=== PATIENT | female | born 1965 | race Caucasian/White ===

== ENCOUNTER 2018-08-04 13:34 | Inpatient (IN) | payer MEDICARE, OTHER ==
[~2018-08-04] VITALS: Ht 165.1 cm; Wt 98.0 kg
[2018-08-04] MEDS ORDERED: ATOR40TA PO (13:50)
[2018-08-04] MEDS ORDERED: ASPI-983 PO (13:50)
[2018-08-04] MEDS ORDERED: CLON0.5T13 PO (13:50)
[2018-08-04] MEDS ORDERED: PANT40TA2 PO (13:50)
[2018-08-04] MEDS ORDERED: GBPN600T PO (13:50)
[2018-08-04] MEDS ORDERED: MELO-170 PO (13:50)
[2018-08-04] MEDS ORDERED: METR-145 PO (14:08)
[2018-08-04] MEDS ORDERED: ASCO10006 PO (14:08)
[2018-08-04] MEDS ORDERED: HYDR-3816 PO (14:08)
[2018-08-04] MEDS ORDERED: ARIP10TA10 PO (14:08)
[2018-08-04] MEDS ORDERED: CEFT2VIA12 IV (14:08)
[2018-08-04] MEDS ORDERED: FLUO20CA42 PO (14:08)
[2018-08-04] MEDS ORDERED: CALC600T12 PO (14:08)
[2018-08-04] MEDS ORDERED: VANC1VIA IV (14:08)
[2018-08-04] MEDS ORDERED: TRAM50TA2 PO (14:08)
--- NOTE | 2018-08-04 14:12 | NUR ---
UPDATED MED REC TO THE LIST OF MEDICATIONS ORDERED UPON DISCHARGE FROM [facility]. I WILL UPDATE THE MED REC TO THE LIST OF HOME MEDS PRIOR TO THAT DISCHARGE AT A LATER DATE. NOTE THE FOLLOWING CHANGES WERE MADE ON DISCHARGE FROM [place]: START TAKING: FLAGYL 500MG Q6H VANCOMYCIN-DEXTROSE 1GM/250ML-5% Q8H CEFTRIAXONE 2GM/50ML DAILY TRAMADOL 50MG 2 TABS Q6H PRN HYDROCODONE 7.5-325MG 2 TABS Q4H PRN Addendum: 08/05/18 at 1127 by MERCED DUFF refrigeration supervisor CHANGED MED REC BACK TO THE LIST OF MEDICATIONS THE PATIENT WAS TAKING PRIOR TO DISCHARGE FROM [place]. I REMOVED THE 5 NEW MEDICATIONS THAT WERE ORDERED UPON THAT DISCHARGE.
--- NOTE | 2018-08-04 16:15 | NUR ---
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 via [facility], unaccompanied. ESTRELLA WILLOUGHBY introduced to surroundings, call light, bed controls, phone, TV, temperature control, lights, meal times, smoking policy, visitor policy, side rail policy, bathrooms and showers. Patient Rights given to patient in the handbook.ESTRELLA WILLOUGHBY verbalizes understanding that [facility] is not responsible for the loss or damage to any personal effects or valuables that are kept in the patients possession during their hospitalization. The following Patient Care Plans were discussed with the Patient: Discharge Planning, Impaired Mobility, Risk for Injury, Total Hip. ESTRELLA WILLOUGHBY verbalizes understanding of Interdisciplinary Patient Education. Patient received Patient Rights Booklet, which includes Privacy Act Statement and Data Collection Information Summary.
[2018-08-04 16:23] VITALS: BP 124/82
--- NOTE | 2018-08-04 17:43 | PM&R H&P / Post Admit Assess ---
History of Present Illness HPI/Chief Complaint CC: Bilateral hip surgical incisions abscess with cellulitis and subsequent debility HPI: This is a 52-year-old white female clinic patient of Dr. Coelho in [facility] who is known to me from prior surgeries at [facility] by Dr. Méndez who presented to inpatient rehab unit at [facility] due to severe debility following bilateral hip incision abscesses and cellulitis in need of 6 weeks of IV antibiotics of Ancef 500 mg IV every 8 hours after a PICC line placement in addition to severe debility following severe postoperative anemia due to acute blood loss with subsequent hemoglobin of 5.4 requiring 4 units of blood last week. She was placed on broad-spectrum antibiotics and culture revealed E. coli pansensitive so she will continue the IV antibiotics until completed and will participate in all therapies to strengthen in order to return back home independently after wound vacs are discontinued. Dr. Cantu is gracious enough to monitor the wound vacs while she is hospitalized at [facility] along with the wound care team. I checked her home medications , current hospital meds from [facility] and review my previous consultation. She was living independently alone without difficulty or use of assistive devices and will return back home with modified independent activities of daily living along with ambulation since she lives alone. Source: patient Exam Limitations: no limitations Date Seen 08/04/18 Time Seen by a Provider: 16:00 Attending Physician Susan Morfin DO PCP Referring Physician Date of Admission Aug 04, 2018 at 15:51 Home Medications & Allergies Home Medications Reviewed patient Home Medication Reconciliation performed by pharmacy medication reconciliations calibration laboratory technician and/or nursing. Patients Allergies have been reviewed. Allergies Allergies Coded Allergies promethazine (Verified Allergy, Severe, Rash, 08/04/18) Penicillins (Verified Allergy, Intermediate, Hives, 08/04/18) Past Egmqwkk-Bynred-Lsmflj Hx Past Med/Social Hx: Reviewed Nursing Past Med/Soc Hx, Reviewed and Corrections made Patient Social History Marrital Status: single Employed/Student: unemployed (disabled) Alcohol Use: Denies Use Smoking Status: Former Smoker (quit 04/25) Recent Foreign Travel: No Contact w/other who traveled: No Recent Infectious Disease Expo: No Past Medical History Surgeries: Orthopedic (cervical spine, lumbar spine, left hip 02/23, right hip 05/29/18) Cardiac: High Cholesterol, Hypertension Neurological: Traumatic Brain Injury Musculoskeletal: Degenerate Disk Disease, Arthritis Psychosocial: Anxiety, Depression Review of Systems Constitutional: see HPI, weakness EENTM: no symptoms reported Respiratory: no symptoms reported Cardiovascular: no symptoms reported Gastrointestinal: no symptoms reported Genitourinary: no symptoms reported Musculoskeletal: joint pain Skin: no symptoms reported Psychiatric/Neurological: Depressed Physical Exam Exam Vital Signs Vital Signs Date Time Temp Pulse Resp B/P (MAP) Pulse Ox O2 Delivery O2 Flow Rate FiO2 08/04/18 18:00 Room Air 08/04/18 16:23 99.6 100 18 124/82 95 Capillary Refill : General Appearance: No Apparent Distress, WD/WN, Chronically ill HEENT: PERRL/EOMI, TMs Normal, Normal ENT Inspection, Pharynx Normal, Moist Mucous Membranes Neck: Full Range of Motion, Normal Inspection, Non Tender, Supple Respiratory: Chest Non Tender, Lungs Clear, Normal Breath Sounds, No Accessory Muscle Use, No Respiratory Distress Cardiovascular: Regular Rate, Rhythm, No Edema, No Gallop, No JVD, No Murmur Gastrointestinal: Normal Bowel Sounds, No Organomegaly, No Pulsatile Mass, Non Tender, Soft Back: Normal Inspection, No CVA Tenderness, No Vertebral Tenderness Extremity: Normal Capillary Refill, Normal Inspection, Normal Range of Motion, Non Tender, No Calf Tenderness, No Pedal Edema Neurologic/Psychiatric: Alert, Oriented x3, Normal Mood/Affect, Motor Weakness (weakness lower legs 4/[address] bilateral thighs) Skin: Normal Color, Warm/Dry Lymphatic: No Adenopathy Results Results/Procedures Labs Patient resulted labs reviewed. Assessment/Plan Assessment and Plan Assess & Plan/Chief Complaint Assessment: Bilateral hip incision abscesses with wound vacs in place and needs 6 weeks of abx with PICC line placement Debility Post op anemia hgb 5.4 s/p 4 units of blood last week OA HLP TBI Depression Anxiety Constipation x 7 days Plan: BM regimen aggressive type Check labs in am Monitor pain PT/OT Home meds GERD Tx (1) Incisional abscess (2) Status post hip replacement (3) Hyperlipidemia (4) Osteoarthritis (5) Depression (6) TBI (traumatic brain injury) (7) Anxiety (8) Postoperative anemia (9) Transfusion history (10) GERD (gastroesophageal reflux disease) (11) Former smoker (12) Constipation Post Admission Physician Asses Date seen by provider: Aug 04, 2018 Time seen by provider: 16:00 Admisison Dx: (1) Incisional abscess (2) Constipation (3) Anxiety (4) Depression (5) Hyperlipidemia (6) Osteoarthritis (7) GERD (gastroesophageal reflux disease) (8) TBI (traumatic brain injury) (9) Postoperative anemia (10) Transfusion history (11) Status post hip replacement (12) Former smoker The preadmission screen agrees with the post admission assessment that the patient is a good candidate for inpatient rehabilitation. The patient will have a comprehensive program of inpatient rehabilitation with a goal of maximizing level of functional independence prior to discharge home. The patient will have PT/OT ninety minutes per day, each discipline, five days a week for gait, strengthening, conditioning, balance, ADLs, any patient/ family/caregiver training as necessary. Speech therapy to do cognitive assessment and treat as indicated. Rehabilitation nursing to assist with bowel, bladder, skin, wound care, medication administration, pain management. Racket Stringer to assist with discharge planning, community reentry. SCD's for DVT prophylaxis. She appears to be well motivated to participate in three hours of therapy a day. She should be able to tolerate three hours of therapy a day from a medical standpoint. She should benefit from the three hours of therapy a day. She has a reasonable discharge plan, reasonable discharge rehabilitation goals and a supportive family. She has various comorbidities that need to be closely monitored with medications and treatments adjusted on a daily basis as needed. These include: see list Barriers to discharge for this patient who had been independent prior to this are for her to be modified independent to supervision for ADLs and mobility skills prior to discharge home with [family], so as to lessen the burden of the caregivers. Risks for this patient include: 1. Fall 2. Fracture 3. DVT 4. Pulmonary embolism 5. Wound infection 6. Skin breakdown 7. Contractures 8. Poorly controlled pain 9. Urinary retention 10. UTI 11. Respiratory infection 12. Aspiration Estimated Length of Stay: 21 days Prognosis: Rehab prognosis appears good for goal of discharge home modified independent to supervision for ADLs and mobility skills. SUSAN MORFIN DO Aug 04, 2018 17:43
[2018-08-04] MEDS: ceFAZolin INJECTION 500 MG in NS (IVPB) 50 ML IV SCH ×2 (18:22→22:31)
[2018-08-04] MEDS: HYDROcodone/APAP 7.5 MG/325 MG (LORTAB, LORCET PLUS) TABLET PO PRN (18:46)
[2018-08-04] MEDS ORDERED: ALPRAZolam 0.25 MG (XANAX) TAB PO PRN (20:45)
[2018-08-04] MEDS ORDERED: ACETAMINOPHEN 500 MG TAB (TYLENOL) PO PRN (20:45)
[2018-08-04] MEDS ORDERED: DOCUSATE SODIUM 100 MG (COLACE) CAP PO PRN (20:45)
[2018-08-04] MEDS ORDERED: ONDANSETRON 4 MG/2 ML (SDV) Z0FRAN IVP PRN (20:45)
[2018-08-04] MEDS ORDERED: diphenhydrAMINE 25 MG TAB (BENADRYL) PO PRN (20:45)
[2018-08-04] MEDS ORDERED: CALCIUM CARBONATE 500 MG (TUMS) TAB.CHEW PO PRN (20:45)
[2018-08-04] MEDS: CALCIUM CARBONATE 600 MG (CALCARB) TAB PO SCH (21:33)
[2018-08-04] MEDS: ATORVASTATIN 40 MG (LIPITOR) TABLET PO SCH (21:33)
[2018-08-04] MEDS: MELOXICAM 7.5 MG (MOBIC) TABLET PO SCH (21:33)
[2018-08-04] MEDS: GABAPENTIN 600 MG (NEURONTIN) TAB PO SCH (21:34)
[2018-08-04] MEDS: clonazePAM 0.5 MG (KlonoPIN) TAB PO SCH (21:34)
[2018-08-04] MEDS ORDERED: LACTULOSE SYRUP 10GM/15ML (ENULOSE) 30ML UDC ONE (21:39)
[2018-08-04] MEDS ORDERED: SENNA W/DOCUSATE (SENOKOT S) TABLET ONE (21:39)
[2018-08-04] MEDS ORDERED: POLYETHYLENE GLYCOL 17 GM (MIRALAX) PACK ONE (21:39)
[2018-08-04] MEDS ORDERED: BISACODYL 10 MG SUPP (DULCOLAX) ONE (21:39)
[2018-08-04] MEDS ORDERED: MELATONIN 3 MG TABLET ONE (21:39)
[2018-08-04] MEDS: SENNA W/DOCUSATE (SENOKOT S) TABLET PO SCH ×2 (21:45→21:47)
[2018-08-04] MEDS: LACTULOSE SYRUP 10GM/15ML (ENULOSE) 30ML UDC PO SCH ×2 (21:45→21:46)
[2018-08-04] MEDS: POLYETHYLENE GLYCOL 17 GM (MIRALAX) PACK PO SCH ×2 (21:45→21:46)
[2018-08-04] MEDS: BISACODYL 10 MG SUPP (DULCOLAX) PR SCH (21:45)
[2018-08-04] MEDS: MELATONIN 3 MG TABLET PO PRN (21:46)
[2018-08-05] MEDS: ASCORBIC ACID (VIT C) 500 MG TABLET PO SCH (06:07)
[2018-08-05] MEDS: ceFAZolin INJECTION 500 MG in NS (IVPB) 50 ML IV SCH (06:07)
[2018-08-05 06:11] LABS: BASOPHILS % (AUTO) 1 % (0-10); EOSINOPHILS # (AUTO) 0.2 10^3/uL (0.0-0.3); EOSINOPHILS % (AUTO) 4 % (0-10); HEMATOCRIT 32 % (35-52); HEMOGLOBIN 10.3 G/DL (11.5-16.0); LYMPHOCYTES # (AUTO) 2.2 X 10^3 (1.0-4.0); LYMPHOCYTES % (AUTO) 34 % (12-44); MEAN CORPUSCULAR HEMOGLOBIN 28 PG (25-34); MEAN CORPUSCULAR HGB CONC 32 G/DL (32-36); MEAN CORPUSCULAR VOLUME 87 FL (80-99); MEAN PLATELET VOLUME 9.5 FL (7.4-10.4); MONOCYTES # (AUTO) 0.4 X 10^3 (0.0-1.0); MONOCYTES % (AUTO) 6 % (0-12); NEUTROPHILS # (AUTO) 3.5 X 10^3 (1.8-7.8); NEUTROPHILS % (AUTO) 56 % (42-75); PLATELET COUNT 298 10^3/uL (130-400); WHITE BLOOD COUNT 6.3 10^3/uL (4.3-11.0)
[2018-08-05 06:28] LABS: ALANINE AMINOTRANSFERASE 32 U/L (0-55); ALBUMIN 2.9 GM/DL (3.2-4.5); ALKALINE PHOSPHATASE 115 U/L (40-136); BILIRUBIN,TOTAL 0.5 MG/DL (0.1-1.0); BUN/CREATININE RATIO 11; CALCIUM 8.7 MG/DL (8.5-10.1); CARBON DIOXIDE 21 MMOL/L (21-32); CHLORIDE 109 MMOL/L (98-107); CREATININE SERUM 0.73 MG/DL (0.60-1.30); GFR ESTIMATED > 60; GLUCOSE 103 MG/DL (70-105); POTASSIUM 3.6 MMOL/L (3.6-5.0); SODIUM 140 MMOL/L (135-145); TOTAL PROTEIN 5.3 GM/DL (6.4-8.2)
--- NOTE | 2018-08-05 08:58 | PM&R Progress Note ---
Subjective HPI/CC On Admission Date Seen by Provider: Aug 05, 2018 Time Seen by Provider: 08:30 CC: Bilateral hip surgical incisions abscess with cellulitis and subsequent debility HPI: This is a 52-year-old white female clinic patient of Dr. Coelho in [facility] who is known to me from prior surgeries at [facility] by Dr. Méndez who presented to inpatient rehab unit at [facility] due to severe debility following bilateral hip incision abscesses and cellulitis in need of 6 weeks of IV antibiotics of Ancef 500 mg IV every 8 hours after a PICC line placement in addition to severe debility following severe postoperative anemia due to acute blood loss with subsequent hemoglobin of 5.4 requiring 4 units of blood last week. She was placed on broad-spectrum antibiotics and culture revealed E. coli pansensitive so she will continue the IV antibiotics until completed and will participate in all therapies to strengthen in order to return back home independently after wound vacs are discontinued. Dr. Cantu is gracious enough to monitor the wound vacs while she is hospitalized at [facility] along with the wound care team. I checked her home medications , current hospital meds from [facility] and review my previous consultation. She was living independently alone without difficulty or use of assistive devices and will return back home with modified independent activities of daily living along with ambulation since she lives alone. Subjective/Events-last exam Pt doing well but still impulsive and has had a bed alarm and chair alarm placed. Wound vac is in place and Dr. Cantu has graciously agreed to oversee that with Aamir in wound care. Had a BM this morning after multiple medications were given lastnight. Picc line will be placed for IV Ancef of 500 mg IV Q8hrs for a total of 6 weeks. Peripheral IV infiltrated this morning so picc line will be placed and Ancef will be restarted. Conferred with RN. Reviewed therapy notes. Overall getting around pretty well but definitely needs intensive therapy. Review of Systems General: Fatigue Musculoskeletal: leg pain Objective Exam Vital Signs Vital Signs Date Time Temp Pulse Resp B/P (MAP) Pulse Ox O2 Delivery O2 Flow Rate FiO2 08/05/18 16:00 97.8 91 16 108/64 (79) 93 Room Air Capillary Refill : Less Than 3 Seconds General Appearance: No Apparent Distress, WD/WN, Chronically ill HEENT: PERRL/EOMI, TMs Normal, Normal ENT Inspection, Pharynx Normal, Moist Mucous Membranes Neck: Full Range of Motion, Normal Inspection, Non Tender, Supple Respiratory: Chest Non Tender, Lungs Clear, Normal Breath Sounds, No Accessory Muscle Use, No Respiratory Distress Cardiovascular: Regular Rate, Rhythm, No Edema, No Gallop, No JVD, No Murmur Gastrointestinal: Normal Bowel Sounds, No Organomegaly, No Pulsatile Mass, Non Tender, Soft Back: Normal Inspection, No CVA Tenderness, No Vertebral Tenderness Extremity: Normal Capillary Refill, Normal Inspection, Normal Range of Motion, Non Tender, No Calf Tenderness, No Pedal Edema Neurologic/Psychiatric: Alert, Oriented x3, Normal Mood/Affect, Motor Weakness (weakness lower legs 4/[address] bilateral thighs) Skin: Normal Color, Warm/Dry Lymphatic: No Adenopathy Results/Procedures Lab Laboratory Tests 08/05/18 05:54 Patient resulted labs reviewed. FIM Transfers Therapy Code Descriptions/Definitions Functional [place] Measure: 0=Not Assessed/NA 4=Minimal Assistance 1=Total Assistance 5=Supervision or Setup 2=Maximal Assistance 6=Modified [place] 3=Moderate Assistance 7=Complete [place] Therapy Quality Codes: 6 Independent with activity with or without an assistive device 5 Patient requires set up or clean up by helper. Patient completes activity by themselves 4 Supervision or touching assist (CGA). [place] provide cues , steadying assist 3 The helper provides less than half the effort to complete the activity 2 The helper provides more than half the effort to complete the activity 1 Dependent. The helper does all the effort to complete an activity 7 Patient refused to complete or attempt activity 9 The patient did not perform the activity before the current illness or injury 88 Not attempted due to Medical conditions or safety concerns Assessment/Plan Assessment and Plan Assess & Plan/Chief Complaint Assessment: Bilateral hip incision abscesses with wound vacs in place and needs 6 weeks of abx with PICC line placement Debility Post op anemia hgb 5.4 s/p 4 units of blood last week now 10 but low iron placing on iron infusions OA HLP TBI Depression Anxiety Constipation x 7 days now resolved Plan: BM regimen aggressive type to maintain to prevent recurrent constipation Iron infusions Monitor pain PT/OT Home meds GERD Tx (1) Incisional abscess (2) Constipation (3) Anxiety (4) Depression (5) Hyperlipidemia (6) Osteoarthritis (7) GERD (gastroesophageal reflux disease) (8) TBI (traumatic brain injury) (9) Postoperative anemia (10) Transfusion history (11) Status post hip replacement (12) Former smoker (13) Iron deficiency INGA MORFIN DO Aug 05, 2018 08:58
[2018-08-05] MEDS: LACTULOSE SYRUP 10GM/15ML (ENULOSE) 30ML UDC PO SCH ×2 (09:00→21:10)
[2018-08-05] MEDS ORDERED: PANTOPRAZOLE 40 MG (PROTONIX) TAB PO SCH (09:00)
[2018-08-05] MEDS: SENNA W/DOCUSATE (SENOKOT S) TABLET PO SCH ×2 (09:00→21:09)
[2018-08-05] MEDS: BISACODYL 10 MG SUPP (DULCOLAX) PR SCH ×2 (09:00→21:08)
[2018-08-05] MEDS: POLYETHYLENE GLYCOL 17 GM (MIRALAX) PACK PO SCH ×2 (09:00→21:10)
--- NOTE | 2018-08-05 09:00 | Physical Therapy Evaluation ---
PT Evaluation-General Medical Diagnosis Admission Date Aug 04, 2018 at 15:51 Medical Diagnosis: Bilateral hip incisions with absesses, debility Onset Date: Jul 29, 2018 Therapy Diagnosis Therapy Diagnosis: impaired mobility, strength, endurance, ROM Height/Weight Height (Feet): 5 Height (Inches): 5.00 Weight (Pounds): 225 Weight (Ounces): 0.5 Precautions Precautions/Isolations: Standard Precautions Weight Bear Status Right Lower Extremity: Right Weight Bearing/Tolerated Left Lower Extremity: Left Weight Bearing/Tolerated Referral Physician: Susan Healy DO Reason for Referral: Evaluation/Treatment Medical History Additional Medical History Medical History Additional Medical History Surgeries: Orthopedic (cervical spine, lumbar spine, left hip 02/23, right hip 05/29/18) Cardiac: High Cholesterol, Hypertension Neurological: Traumatic Brain Injury Musculoskeletal: Degenerate Disk Disease, Arthritis Psychosocial: Anxiety, Depression Reviewed History: Yes Social History Home: Single Level Current Living Status: Alone Entry Into Home: Level Entry Patient states her apartment is handicapped accessible. She lives alone but states she will have several people who will be able to assist her. Prior/Core FIM Prior Level of Function Therapy Code Descriptions/Definitions Functional [place] Measure: 0=Not Assessed/NA 4=Minimal Assistance 1=Total Assistance 5=Supervision or Setup 2=Maximal Assistance 6=Modified [place] 3=Moderate Assistance 7=Complete [place] Therapy Quality Codes: 6 Independent with activity with or without an assistive device 5 Patient requires set up or clean up by helper. Patient completes activity by themselves 4 Supervision or touching assist (CGA). [place] provide cues , steadying assist 3 The helper provides less than half the effort to complete the activity 2 The helper provides more than half the effort to complete the activity 1 Dependent. The helper does all the effort to complete an activity 7 Patient refused to complete or attempt activity 9 The patient did not perform the activity before the current illness or injury 88 Not attempted due to Medical conditions or safety concerns Functional Abilities and Goals: Independent: Patient completed the activities by him/herself, with or without an assistive device, with no assistance from a helper. Needed Some Help: Patient needed partial assistance from another person to complete activities. Dependent: A helper completed the activities for the patient. Unknown: Not Applicable: Bed Mobility: 6 Transfers (B,C,W/C) (FIM): 6 Gait: 2 Indoor Mobility (Ambulation): Independent Prior Devices Use: Motorized wheelchair, Walker Patient states she had a power wheelchair she used previously but also used a rolling walker for short distances. PT Evaluation-Current Subjective Patient in bed pre tx, agrees to PT, has 7/10 in both hips. Nurse notified of pain. Pt/Family Goals to be independent at home Objective Patient Orientation: Person, Place, Situation wound vacs ROM/Strength ROM Lower Extremities NT Strenght Lower Extremities 4/5 knee flex/ext on the right side, 3+/5 knee flex/ext on the left side Sensory Vision: Functional Hearing: Functional Sensation Right Lower Extremit: Impaired Sensation Left Lower Extremity: Impaired Transfers Therapy Code Descriptions/Definitions Functional [place] Measure: 0=Not Assessed/NA 4=Minimal Assistance 1=Total Assistance 5=Supervision or Setup 2=Maximal Assistance 6=Modified [place] 3=Moderate Assistance 7=Complete [place] Therapy Quality Codes: 6 Independent with activity with or without an assistive device 5 Patient requires set up or clean up by helper. Patient completes activity by themselves 4 Supervision or touching assist (CGA). [place] provide cues , steadying assist 3 The helper provides less than half the effort to complete the activity 2 The helper provides more than half the effort to complete the activity 1 Dependent. The helper does all the effort to complete an activity 7 Patient refused to complete or attempt activity 9 The patient did not perform the activity before the current illness or injury 88 Not attempted due to Medical conditions or safety concerns Transfers (B, C, W/C) (FIM): 5 Scootin Rollin Roll Left to Right (QC): 4 Supine to/from Sit: 5 Sit to/from Stand: 5 Sit to Lying (QC): 4 Lying to Sitting/Side of Bed(Q: 4 Sit to Stand (QC): 4 Chair/Fst-jd-Hwkcl Xfer(QC): 4 Car Transfer (QC): 4 Patient performs bed mobility with SBA, supine <-> sit with SBA, sit <-> stand with SBA, transfers with SBA, car transfer SBA. Patient has difficulty getting left leg into and out of car but can do it without assist. Good use of hands when sitting and standing. Gait Does the Patient Walk?: Yes Mode of Locomotion: Walk Anticipated Mode of Locomotion: Walk Gait (FIM): 5 Walk 10 feet (QC): 4 Walk 50 ft with 2 Turns(QC): 4 Walk 150 ft (QC): 4 Walking 10ft/uneven surface-QC: 4 Distance: 150', 200' Gait Level of Assist: 5 Gait Persons Needed: 1 Gait Assistive Device: FWW Comments/Gait Description Patient can ambulate 200' with a rolling walker with SBA (including 50' with at least 2 turns of 90 degrees and 10' over an uneven surface). Gait is antalgic, slow, but steady, no LOB. Wheelchair Training Does the Pt Use a Wheelchair?: No Stairs Stairs (FIM): 1 #of Steps: 1 Level of Assist: 4 1 Step (curb) (QC): 1 Assistive Device: Walker Patient can go up and down 1 step using a rolling walker with CGA. Cues for step sequence. Balance Sitting Static: Normal Sitting Dynamic: Normal Standing Static: Good Standing Dynamic: Good Treatment LAQ alternating for 5 min Assessment/Needs Patient has impaired mobility, strength, endurance, ROM post bilateral KEI. She has steady ambulation and transfers with SBA. Rehab Potential: Fair PT Short Term Goals Short Term Goals Time Frame: August 12, 2018 Transfers (B,C,W/C) (FIM): 6 Gait (FIM): 6 Gait Distance Comment: 150' Gait Level of Assist: 6 Gait Assistive Device: FWW PT Parking Station Attendant Goals Usp Goals PT Usp Goals Time Frame: August 26, 2018 Transfers (B,C,W/C) (FIM): 6 Sit to Lying (QC): 6 Lying-Sitting on Side/Bed(QC): 6 Sit to Stand (QC): 6 Rollin Roll Left to Right (QC): 6 Chair/Skg-ug-Ilhrz Xfer(QC): 6 Car Transfer (QC): 6 Gait (FIM): 6 Distance: 300' Walk 10 feet (QC): 6 Walk 10ft-Uneven Surface(QC): 6 Walk 50ft with 2 Turns (QC): 6 Walk 150 ft (QC): 6 Gait Level of Assist: 6 Gait Assistive Device: FWW Stairs (FIM): 2 # of Steps: 4 1 Step (curb) (QC): 4 4 Steps (QC): 4 Stairs Level Of Assist: 5 PT Plan Problem List Problem List: Activity Tolerance, Functional Strength, Safety, Balance, Gait, Transfer, Bed Mobility, ROM Treatment/Plan Treatment Plan: Continue Plan of Care Treatment Plan: Bed Mobility, Education, Functional Activity Lorena, Functional Strength, Group Therapy, Gait, Safety, Therapeutic Exercise, Transfers Treatment Duration: August 26, 2018 Frequency: At least 5 of 7 days/Wk (IRF) Estimated Hrs Per Day: 1.5 hours per day Patient and/or Family Agrees t: Yes Safety Risks/Education Patient Education: Gait Training, Transfer Techniques, Steps, Correct Positioning, Safety Issues Teaching Recipient: Patient Teaching Methods: Demonstration, Discussion Response to Teaching: Reinforcement Needed Discharge Recommendations Plan Patient will perform bed mobility and transfer training, balance and endurance training, functional strengthening, stair training, gait training, and education , to improve functional mobility and independence at home. Therapy D/C Recommendations: Home w/ Family Support Time/GCodes Time In: 0800 Time Out: 09 Total Billed Treatment Time: 60 Total Billed Treatment 1 visit EVM 30' FA 10' GT 20' MAGDALENE PERALTA PT Aug 05, 2018 09:00
[2018-08-05] MEDS: MELOXICAM 7.5 MG (MOBIC) TABLET PO SCH ×2 (10:02→21:06)
[2018-08-05] MEDS: clonazePAM 0.5 MG (KlonoPIN) TAB PO SCH ×3 (10:03→21:11)
[2018-08-05] MEDS: ASPIRIN E.C. 81 MG (ECOTRIN) TAB PO SCH (10:03)
[2018-08-05] MEDS: GABAPENTIN 600 MG (NEURONTIN) TAB PO SCH ×3 (10:03→21:07)
[2018-08-05] MEDS: FLUoxetine HCL 20 MG (PROzac) CAP PO SCH (10:04)
[2018-08-05] MEDS: HYDROcodone/APAP 7.5 MG/325 MG (LORTAB, LORCET PLUS) TABLET PO PRN ×3 (10:04→21:07)
--- NOTE | 2018-08-05 11:05 | NUR ---
Pastoral care visit.
--- NOTE | 2018-08-05 12:33 | NUR ---
CLIENT SERVICES ASSISTANT met with patient to complete initial assessment. Patient was alert and oriented and agreeable to assessment. Patient admitted to ARU from [facility] with debility following development of an abscess at right hip incision site (from previous hip replacement by Dr. Turcios) and need for long-term IV antibiotics due to ecoli and wound VAC. Replacement occurred in May and patient was independent prior to surgery. Since this time patient has required a walker or cane for ambulation and feels she has physically declined. She also possesses a power chair, of which she intends to sale. Patient resides alone in a handicap accessible apartment in [place], [place]. She reports good family, friend and neighbor support. Primary contact identified as ex-, Edi Linda of [place] at [phone] and son, Derrick of [place] at [phone]. PCP identified as Dr. Coelho of [place] and surgeon as Dr. Turcios. Insurance verified as Medicare, [place] Medicaid, and [employer] prescription coverage with preferred pharmacy as [facility]. Due to previous need for HHC services and home IV abx infusions, patient has utilized [facility] and an Infusion company; however, she cannot recall provider name of Infusion company. CLIENT SERVICES ASSISTANT reviewed typical a RU length of stay and weekly team conferences, patient expresses no concerns at this time. CLIENT SERVICES ASSISTANT will continue to follow for additional needs.
--- NOTE | 2018-08-05 13:02 | ST Cognitive Linguistic Eval ---
Speech Evaluation-General Medical Diagnosis Bilaterall hip incisions with absesses, debility Therapy Diagnosis Therapy Diagnosis: Cognitive-Communication Precautions Precautions/Isolations: Standard Precautions Referral Referring Physician: Dr. Healy Social History Current Living Status: Alone Speech PLF-Current Status Prior Level of Function The patient lived at home in a handicap apartment in [facility] where she was able to independently manage her daily needs. Subjective The patient was pleasant and cooperative with the cognitive assessment. Language Eval: Auditory Comprehends Simple Yes/No Ques: Functional Indent/Objects Multiple Correa: Functional Ident/Pics in Multiple [place]: Functional Follows 1-Step Commands: Functional Follows Complex Directions: Functional Follows General Conversations: Functional Language Eval: Verbal Language Completes Spontaneous Greeting: Functional Produces Auto, Serial Info: Functional Imitates Simple Words/Phrases: Functional Word Finding: Functional Requests Basic Needs: Functional States Basic Personal Info: Functional Expresses Complex Ideas: Functional Objective Cognitive Domain Attention: WNL Memory: WNL Problem Solving: Functional Executive Functions: WNL Visuospatial Skills: WNL Composite Severity Rating: WNL Clock Drawing Severity Rating: WNL Objective Formal/Standardized Tests Leobardo Cognitive Assessment (MOCA) Results Visuospatial/Executive: 5/5, Namin/3, Memory: Immediate 5/5, Delayed without cues 4/5, Attention: 6/6, Language: 3/3, Abstraction: 2/2, Orientation: 6/6 Oral Motor/Speech Production Within Functional Limits Impression The patient is a pleasant 52 year old female who was admitted to the ARU with bilateral hip incision abscesses and debility. The patient was given the MOCA with results indicating she is within normal range for all areas tested. Communication/Social Cognition Comprehension: 7 Expression: 7 Social Interaction: 7 Problem Solvin Memory: 7 Speech Patient Assess Expression of Ideas/Wants: Expression (4) Understanding Verbal Content: Understands (4) Brief Interview-Mental Status: Yes Repetition of Three Words: Three (3) Temporal Orientation: Year: Correct (3) Temporal Orientation: Month: Accurate within 5 days(2) Temporal Orientation: Day: Correct (1) Recall : Wear to say "Sock": Yes, no cue required (2) Recall : Color: Yes, no cue required (2) Recall : Bed: Yes, no cue required (2) Memory/Recall Ability: Current season, That he or she is in a hsp/hsp unit Speech-Plan Patient/Family Goals Patient/Family Goals: The patient plans to return home post rehab. Treatment Plan Speech Therapy Treatment Plan: Discontinue ST The patient does not warrant skilled ST at this time. Treatment Duration: Aug 05, 2018 Frequency: 1 time per week Estimated Hrs Per Day: .25 hour per day Rehab Potential: Fair Barriers to Learning: Patient has a complex medical history Safety Risks/Education Teaching Recipient: Patient Teaching Methods: Discussion Response to Teaching: Verbalize Understanding Education Topics Provided: Safety within her room Time Speech Therapy Time In: 09:00 Speech Therapy Time Out: 09:15 Total Billed Time: 15 Billed Treatment Time 1, SPSNDCOMP AVA Cruz Aug 05, 2018 13:02
--- NOTE | 2018-08-05 13:25 | Occupational Therapy Eval ---
OT Evaluation-General/PLF Medical Diagnosis Admission Date Aug 04, 2018 at 15:51 Medical Diagnosis: Bilateral hip incisions with absesses, debility Onset Date: Jul 29, 2018 Therapy Diagnosis Therapy Diagnosis: decreased self care skills Height/Weight Height (Feet): 5 Height (Inches): 5.00 Weight (Pounds): 225 Weight (Ounces): 0.5 Precautions Precautions/Isolations: Standard Precautions Safety Interventions: Bed Exit Alarm Referral Physician: Susan Healy DO Medical History Additional Medical History Surgeries: Orthopedic (cervical spine, lumbar spine, left hip 02/23, right hip 05/29/18) Cardiac: High Cholesterol, Hypertension Neurological: Traumatic Brain Injury Musculoskeletal: Degenerate Disk Disease, Arthritis Psychosocial: Anxiety, Depression Reviewed History: Yes Social History Home: Single Level Current Living Status: Alone Entry Into Home: Level Entry ADL-Prior Level of Function Therapy Code Descriptions/Definitions Functional [place] Measure: 0=Not Assessed/NA 4=Minimal Assistance 1=Total Assistance 5=Supervision or Setup 2=Maximal Assistance 6=Modified [place] 3=Moderate Assistance 7=Complete [place] Therapy Quality Codes: 6 Independent with activity with or without an assistive device 5 Patient requires set up or clean up by helper. Patient completes activity by themselves 4 Supervision or touching assist (CGA). Fisher provide cues , steadying assist 3 The helper provides less than half the effort to complete the activity 2 The helper provides more than half the effort to complete the activity 1 Dependent. The helper does all the effort to complete an activity 7 Patient refused to complete or attempt activity 9 The patient did not perform the activity before the current illness or injury 88 Not attempted due to Medical conditions or safety concerns Functional Abilities and Goals: Independent: Patient completed the activities by him/herself, with or without an assistive device, with no assistance from a helper. Needed Some Help: Patient needed partial assistance from another person to complete activities. Dependent: A helper completed the activities for the patient. Unknown: Not Applicable: DME/Equipment: Bath Chair, Grab Bars, Shower, Tall Toilet Drive Self: Yes OT Current Status Subjective Pt sitting in chair, agrees to therapy. Pt reports 8/10 pain in left hip, 6/10 pain in right hip. Mental Status/Objective Patient Orientation: Person, Place Attachments: Other-See Comments (wound vac on bilateral hips) Current Glasses/Contacts: Yes Hearing Aids: No Dentures/Partials: Yes Hand Dominance: Right Upper Extremity ROM grossly WFL Upper Extremity Coordination Intact Upper Extremity Strength Grossly WFL ADL-Treatment Eating (FIM): 6 (Pt reports feeding self and managing containers) Eating (QC): 6 Grooming (FIM): 5 (Pt combed hair after set up) Bathing (FIM): 4 (RN states sponge bath only at this time secondary to bilateral wound vacs. Sponge bath completed seated in chair. Pt bathed upper body after set up. Pt able to wash bilateral upper legs, juwan area, and buttocks. Assist for lower legs and feet. Assisted pt to wash hair. Pt able to dry hair with towel) Shower/Bathe Self (QC): 3 Upper Body Dressing (FIM): 5 (set up) Upper Body Dressing (QC): 5 Lower Body Dressing (FIM): 3 (Pt required min assist to start pants over feet. Able to complete pant hike with CGA. Assist required to don shoes. Pt states she is interested in hip kit, but does not have AE at home.) Lower Body Dressing (QC): 3 Toilet/Commode Transfer (FIM): 4 (CGA) Toilet Transfer (QC): 4 Education OT Patient Education: Rehab process Teaching Recipient: Patient Teaching Methods: Discussion Response to Teaching: Verbalize Understanding, Reinforcement Needed OT Short Term Goals Short Term Goals Transfers (B,C,W/C) (FIM): 6 1=Demonstrate adherence to instructed precautions during ADL tasks. 2=Patient will verbalize/demonstrate understanding of assistive devices/ modifications for ADL. 3=Patient will improve strength/tolerance for activity to enable patient to perform ADL's. OT Foreign Exchange Student Coordinator Goals Snf Goals Time Frame: August 26, 2018 Eating (FIM): 6 Eating (QC): 6 Groomin Oral Hygiene (QC): 6 Bathing(FIM): 6 Shower/Bathe Self (QC): 6 Upper Body Dressing(FIM): 6 Upper Body Dressing (QC): 6 Lower Body Dressing(FIM): 6 Lower Body Dressing (QC): 6 On/Off Footwear (QC): 6 Toileting(FIM): 6 Toileting Hygiene (QC): 6 Toilet/Commode Transfer(FIM): 6 Toilet/Commode Transfer (QC): 6 Shower Transfer(FIM): 6 Additional Goals: 1-Demonstrate ADL Tasks, 2-Verbalize Understanding, 3- ImproveStrength/Lorena 1=Demonstrate adherence to instructed precautions during ADL tasks. 2=Patient will verbalize/demonstrate understanding of assistive devices/ modifications for ADL. 3=Patient will improve strength/tolerance for activity to enable patient to perform ADL's. OT Education/Plan Problem List/Assessment Assessment: Decreased Activ Tolerance, Dependent Transfers, Impaired I ADL's, Impaired Self-Care Skills Pt to benefit from skilled OT intervention for ADL training, transfers, strengthening, and home safety education to increase level of independence and allow safe discharge home. Discharge Recommendations Plan/Recommendations: Continue POC Treatment Plan/Plan of Care Treatment,Training & Education: Yes Patient would benefit from OT for education, treatment and training to promote independence in ADL's, mobility, safety and/or upper extremity function for ADL' s. Plan of Care: ADL Retraining, Functional Mobility, Group Exercise/Act as Ind, UE Funct Exercise/Act Treatment Duration: August 26, 2018 Frequency: At least 5 of 7 days/Wk (IRF) Estimated Hrs Per Day: 1.5 hours per day Rehab Potential: Fair Time/GCodes Start Time: 09:30 Stop Time: 10:45 Total Time Billed (hr/min): 75 Billed Treatment Time 1 visit, EVM(15minutes), ADLx4(60minutes) PARISH STROUD OT Aug 05, 2018 13:25
--- NOTE | 2018-08-05 13:29 | Occ Therapy Progress Note ---
Therapy Progress Note Attempted to see pt at 1300 for OT rehab session. Pt having port placed. Unable to see pt. Will attempt at later time. GALDINO SIGALA Aug 05, 2018 13:29
--- NOTE | 2018-08-05 14:08 | Occupational Ther Daily Note ---
OT Current Status-Daily Note Subjective Pt alert, lying in bed. Just finished getting port placed. Agrees to therapy. No c/o pain at this time. Mental Status/Objective Patient Orientation: Person, Place, Time, Situation Therapy Code Descriptions/Definitions Functional [place] Measure: 0=Not Assessed/NA 4=Minimal Assistance 1=Total Assistance 5=Supervision or Setup 2=Maximal Assistance 6=Modified [place] 3=Moderate Assistance 7=Complete [place] Attachments: IV (port) ADL-Treatment Therapy Code Descriptions/Definitions Functional [place] Measure: 0=Not Assessed/NA 4=Minimal Assistance 1=Total Assistance 5=Supervision or Setup 2=Maximal Assistance 6=Modified [place] 3=Moderate Assistance 7=Complete [place] Therapy Quality Codes: 6 Independent with activity with or without an assistive device 5 Patient requires set up or clean up by helper. Patient completes activity by themselves 4 Supervision or touching assist (CGA). [place] provide cues , steadying assist 3 The helper provides less than half the effort to complete the activity 2 The helper provides more than half the effort to complete the activity 1 Dependent. The helper does all the effort to complete an activity 7 Patient refused to complete or attempt activity 9 The patient did not perform the activity before the current illness or injury 88 Not attempted due to Medical conditions or safety concerns Other Treatment Pt given medium resistance theraband for use in room throughout the day. Pt educated on how to use theraband and how many sets/reps to start with. Pt required skilled instruction for technique through demonstration and education. Pt able to complete 2 sets 10 reps of 5 UE theraband exercises. Tolerated well. After therapy, pt lying in bed with call light/phone in reach. All needs met in room. Education OT Patient Education: Exercise program Teaching Recipient: Patient Teaching Methods: Demonstration Response to Teaching: Verbalize Understanding, Return Demonstration, Reinforcement Needed OT Short Term Goals Short Term Goals Transfers (B,C,W/C) (FIM): 6 1=Demonstrate adherence to instructed precautions during ADL tasks. 2=Patient will verbalize/demonstrate understanding of assistive devices/ modifications for ADL. 3=Patient will improve strength/tolerance for activity to enable patient to perform ADL's. OT Towing Pilot Goals Towing Pilot Goals Time Frame: August 26, 2018 Eating (FIM): 6 Eating (QC): 6 Groomin Oral Hygiene (QC): 6 Bathing(FIM): 6 Shower/Bathe Self (QC): 6 Upper Body Dressing(FIM): 6 Upper Body Dressing (QC): 6 Lower Body Dressing(FIM): 6 Lower Body Dressing (QC): 6 On/Off Footwear (QC): 6 Toileting(FIM): 6 Toileting Hygiene (QC): 6 Toilet/Commode Transfer(FIM): 6 Toilet/Commode Transfer (QC): 6 Shower Transfer(FIM): 6 Additional Goals: 1-Demonstrate ADL Tasks, 2-Verbalize Understanding, 3- ImproveStrength/Lorena 1=Demonstrate adherence to instructed precautions during ADL tasks. 2=Patient will verbalize/demonstrate understanding of assistive devices/ modifications for ADL. 3=Patient will improve strength/tolerance for activity to enable patient to perform ADL's. OT Education/Plan Problem List/Assessment Assessment: Decreased Safety Aware, Decreased UE Strength, Impaired Self-Care Skills Pt to benefit from skilled OT intervention for ADL training, transfers, strengthening, and home safety education to increase level of independence and allow safe discharge home. Discharge Recommendations Plan/Recommendations: Continue POC Treatment Plan/Plan of Care Patient would benefit from OT for education, treatment and training to promote independence in ADL's, mobility, safety and/or upper extremity function for ADL' s. Plan of Care: ADL Retraining, Functional Mobility, Group Exercise/Act as Ind, UE Funct Exercise/Act Treatment Duration: August 26, 2018 Frequency: At least 5 of 7 days/Wk (IRF) Estimated Hrs Per Day: 1.5 hours per day Rehab Potential: Fair Time/GCodes Start Time: 13:50 Stop Time: 14:05 Total Time Billed (hr/min): 15 Billed Treatment Time 1 visit-EX 1 (15 min) GALDINO SIGALA Aug 05, 2018 14:08
--- NOTE | 2018-08-05 14:25 | Diagnostic Imaging Report ---
INDICATION: Evaluate PICC line placement. FINDINGS: The heart size is normal. Lungs are clear. There is no pleural effusion or pneumothorax. Mediastinum is unremarkable. The left upper extremity PICC line has its tip in the superior vena cava. IMPRESSION: No acute cardiopulmonary abnormality. The PICC line is in satisfactory position. Dictated by: Dictated on workstation # [id number]
--- NOTE | 2018-08-05 14:53 | Physical Therapy Daily Note ---
PT Daily Note-Current Subjective Patient in bed pre tx, agrees to PT, has 5/10 pain in hips. Appearance Patient sitting EOB post tx with nurse call, phone, tray, all needs met. Mental Status Patient Orientation: Person, Place, Situation wound vac Transfers Therapy Code Descriptions/Definitions Functional [place] Measure: 0=Not Assessed/NA 4=Minimal Assistance 1=Total Assistance 5=Supervision or Setup 2=Maximal Assistance 6=Modified [place] 3=Moderate Assistance 7=Complete [place] Therapy Quality Codes: 6 Independent with activity with or without an assistive device 5 Patient requires set up or clean up by helper. Patient completes activity by themselves 4 Supervision or touching assist (CGA). [place] provide cues , steadying assist 3 The helper provides less than half the effort to complete the activity 2 The helper provides more than half the effort to complete the activity 1 Dependent. The helper does all the effort to complete an activity 7 Patient refused to complete or attempt activity 9 The patient did not perform the activity before the current illness or injury 88 Not attempted due to Medical conditions or safety concerns Transfers (B, C, W/C) (FIM): 5 Scootin Rollin Supine to/from Sit: 6 Sit to/from Stand: 5 Bed to/from Chair: 5 Weight Bearing Right Lower Extremity: Right Weight Bearing/Tolerated Left Lower Extremity: Left Weight Bearing/Tolerated Gait Training Gait (FIM): 5 Distance: 150'x2 Gait Level of Assist: 5 Gait Persons Needed: 1 Gait Assistive Device: FWW Slow, antalgic but steady and no LOB. Exercises NuStep Minutes: 10 NuStep Workload: 4 (seat set so patient will not violate hip flexion precautions) Treatments bed mobility and transfers, ambulation, LE exercises Assessment Current Status: Fair Progress improved bed mobility PT Short Term Goals Short Term Goals Time Frame: August 12, 2018 Transfers (B,C,W/C) (FIM): 6 Gait (FIM): 6 Gait Distance Comment: 150' Gait Level of Assist: 6 Gait Assistive Device: FWW PT Residential Goals Residential Goals PT Chain Repairer Goals Time Frame: August 26, 2018 Transfers (B,C,W/C) (FIM): 6 Sit to Lying (QC): 6 Lying-Sitting on Side/Bed(QC): 6 Sit to Stand (QC): 6 Rollin Roll Left to Right (QC): 6 Chair/Dnr-sh-Stduf Xfer(QC): 6 Car Transfer (QC): 6 Gait (FIM): 6 Distance: 300' Walk 10 feet (QC): 6 Walk 10ft-Uneven Surface(QC): 6 Walk 50ft with 2 Turns (QC): 6 Walk 150 ft (QC): 6 Gait Level of Assist: 6 Gait Assistive Device: FWW Stairs (FIM): 2 # of Steps: 4 1 Step (curb) (QC): 4 4 Steps (QC): 4 Stairs Level Of Assist: 5 PT Plan Problem List Problem List: Activity Tolerance, Functional Strength, Safety, Balance, Gait, Transfer, Bed Mobility, ROM Treatment/Plan Treatment Plan: Continue Plan of Care Treatment Plan: Bed Mobility, Education, Functional Activity Lorena, Functional Strength, Group Therapy, Gait, Safety, Therapeutic Exercise, Transfers Treatment Duration: August 26, 2018 Frequency: At least 5 of 7 days/Wk (IRF) Estimated Hrs Per Day: 1.5 hours per day Patient and/or Family Agrees t: Yes Safety Risks/Education Patient Education: Gait Training, Transfer Techniques, Correct Positioning, Safety Issues Teaching Recipient: Patient Teaching Methods: Demonstration, Discussion Response to Teaching: Reinforcement Needed Time/GCodes Time In: 1425 Time Out: 1455 Total Billed Treatment Time: 30 Total Billed Treatment 1 visit EX 10' GT 20' MAGDALENE PERALTA PT Aug 05, 2018 14:52
[2018-08-05] MEDS: ceFAZolin 1,000 MG/SWFI 10 ML IV PUSH IV SCH ×4 (15:00→22:12)
[2018-08-05 16:00] VITALS: BP 108/64
--- NOTE | 2018-08-05 19:15 | NUR ---
bedside report received from MEE MCFARLAND, assume care of pt
--- NOTE | 2018-08-05 21:00 | NUR ---
assessments & interventions completed, see assessments & interventions, up to bathroom with 1 person assist & walker, wound vacs in place to maye hip wounds.
[2018-08-05] MEDS: CALCIUM CARBONATE 600 MG (CALCARB) TAB PO SCH (21:05)
[2018-08-05] MEDS: ATORVASTATIN 40 MG (LIPITOR) TABLET PO SCH (21:05)
--- NOTE | 2018-08-05 21:07 | NUR ---
c/o maye hip pain level 6/10 on numeric scale, lortab 7.5 2 tabs po given, pt refused Senokot, Dulcolax supp, miralax & Enulose.
--- NOTE | 2018-08-05 21:40 | NUR ---
pain level 2/10 on numeric scale
--- NOTE | 2018-08-05 23:01 | Consultation (Surgery) ---
History of Present Illness History of Present Illness Patient Consulted On(colleen/time) 08/05/18 22:55 Time Seen by Provider: 12:06 History of Present Illness Surgery asked to consult regarding abscesses, cellulitis and wound VAC. Pt has long protracted medical history. HPI per IM: This is a 52-year-old white female clinic patient of Dr. Coelho in [facility] who is known to me from prior surgeries at [facility] by Dr. Turcios who presented to inpatient rehab unit at [facility] due to severe debility following bilateral hip incision abscesses and cellulitis in need of 6 weeks of IV antibiotics of Ancef 500 mg IV every 8 hours after a PICC line placement in addition to severe debility following severe postoperative anemia due to acute blood loss with subsequent hemoglobin of 5.4 requiring 4 units of blood last week. She was placed on broad-spectrum antibiotics and culture revealed E. coli pansensitive so she will continue the IV antibiotics until completed and will participate in all therapies to strengthen in order to return back home independently after wound vacs are discontinued. Dr. May is gracious enough to monitor the wound vacs while she is hospitalized at [facility] along with the wound care team. I checked her home medications, current hospital meds from [facility] and review my previous consultation. She was living independently alone without difficulty or use of assistive devices and will return back home with modified independent activities of daily living along with ambulation since she lives alone. When I spoke to pt this afternoon, she denied pain specifically from incisions, just the normal pain she has been in. She is worried about removing the wound VAC; because "everytime they take them off, they fall apart." Allergies and Home Medications Allergies Coded Allergies: promethazine (Verified Allergy, Severe, Rash, 08/04/18) Penicillins (Verified Allergy, Intermediate, Hives, 08/04/18) Home Medications Aripiprazole 10 Mg Tablet, 10 MG PO DAILY, (Reported) Ascorbic Acid 1,000 Mg Tablet, 1,000 MG PO HS, (Reported) Aspirin 81 Mg Tablet.dr, 81 MG PO DAILY, (Reported) Atorvastatin Calcium 40 Mg Tablet, 40 MG PO HS, (Reported) Calcium Carbonate 600 Mg Tablet, 600 MG PO HS, (Reported) Clonazepam 0.5 Mg Tablet, 0.5 MG PO TID, (Reported) Fluoxetine HCl 20 Mg Capsule, 20 MG PO DAILY, (Reported) Gabapentin 600 Mg Tablet, 600 MG PO TID, (Reported) Meloxicam 7.5 Mg Tablet, 7.5 MG PO BID, (Reported) Pantoprazole Sodium 40 Mg Tablet.dr, 40 MG PO DAILY, (Reported) Patient Home Medication List Home Medication List Reviewed: Yes Past Uhzglzl-Wkyaxg-Bqurbm Hx Patient Social History Alcohol Use: Denies Use Recreational Drug Use: Yes ([facility]) Smoking Status: Former Smoker (quit 04/25) Recent Foreign Travel: No Contact w/Someone Who Travel: No Recent Infectious Disease Expo: No Recent Hopitalizations: Yes Physical Abuse Screen: No Sexual Abuse: No Seasonal Allergies Seasonal Allergies: No Surgeries History of Surgeries: Yes Surgeries: Orthopedic (cervical spine, lumbar spine, left hip 02/23, right hip 05/29/18) Respiratory History of Respiratory Disorde: No Cardiovascular Cardiac Disorders: High Cholesterol, Hypertension Neurological History of Neurological Disord: Yes Neurological Disorders: Traumatic Brain Injury Genitourinary History of Genitourinary Disor: No Gastrointestinal History of Gastrointestinal Di: No Musculoskeletal History of Musculoskeletal Dis: No Musculoskeletal Disorders: Degenerate Disk Disease, Arthritis Endocrine History of Endocrine Disorders: No HEENT History of HEENT Disorders: No Cancer History of Cancer: No Psychosocial History of Psychiatric Problem: No Behavioral Health Disorders: Anxiety, Depression Integumentary History of Skin or Integumenta: No Blood Transfusions History of Blood Disorders: No Adverse Reaction to a Blood Tr: No Family Medical History Significant Family History: Other Conditions/Hx (unknown, because she was adopted) Family Medial History: Not obtainable due to adoption 19 FATHER 19 MOTHER Review of Systems-General Constitutional: No chills, No diaphoresis EENTM: No blurred vision, No mouth pain, No epistaxis Respiratory: No cough, No dyspnea on exertion Cardiovascular: No chest pain, No palpitations Gastrointestinal: No abdominal pain; constipation; No hematemesis, No jaundice Genitourinary: No dysuria, No frequency, No hematuria Musculoskeletal: joint pain, joint swelling, muscle pain, muscle stiffness, muscle cramps, muscle weakness Skin: No change in color, No change in hair/nails Psychiatric/Neurological: Anxiety, Paresthesia; Denies Seizure, Denies Tingling Physical Exam-General Problems Physical Exam Vital Signs Vital Signs - First Documented 08/04/18 16:23 Temp 99.6 Pulse 100 Resp 18 B/P (MAP) 124/82 Pulse Ox 95 O2 Delivery Room Air Capillary Refill : Less Than 3 Seconds General Appearance: WD/WN, no apparent distress Eyes: Bilateral Eye PERRL, Bilateral Eye EOMI HEENT: pharynx normal; No scleral icterus (R), No scleral icterus (L), No pale conjunctivae (R), No pale conjunctivae (L) Neck: supple, normal inspection Respiratory: lungs clear, normal breath sounds, no respiratory distress, no accessory muscle use Cardiovascular: regular rate, rhythm, no murmur Gastrointestinal: normal bowel sounds, non tender, soft, no organomegaly Back: no CVA tenderness, no vertebral tenderness Extremities: other (decreased ROM in both legs, wound VAC in place on bilateral hips with scant blood under occlusive dressing) Neurologic/Psychiatric: baggage porter II-XII nml as tested, alert, normal mood/affect, oriented x 3, abnormal gait, motor weakness Data Review Labs Laboratory Tests 08/05/18 05:54: White Blood Count 6.3, Red Blood Count 3.68L, Hemoglobin 10.3L, Hematocrit 32L, Mean Corpuscular Volume 87, Mean Corpuscular Hemoglobin 28, Mean Corpuscular Hemoglobin Concent 32, Red Cell Distribution Width 18.0H, Platelet Count 298, Mean Platelet Volume 9.5, Neutrophils (%) (Auto) 56, Lymphocytes (%) (Auto) 34, Monocytes (%) (Auto) 6, Eosinophils (%) (Auto) 4, Basophils (%) (Auto) 1, Neutrophils # (Auto) 3.5, Lymphocytes # (Auto) 2.2, Monocytes # (Auto) 0.4, Eosinophils # (Auto) 0.2, Basophils # (Auto) 0.0, Sodium Level 140, Potassium Level 3.6, Chloride Level 109H, Carbon Dioxide Level 21, Anion Gap 10, Blood Urea Nitrogen 8, Creatinine 0.73, Estimat Glomerular Filtration Rate > 60, BUN/ Creatinine Ratio 11, Glucose Level 103, Calcium Level 8.7, Corrected Calcium 9.6 , Iron Level 29L, Total Bilirubin 0.5, Aspartate Amino Transf (AST/SGOT) 61H, Alanine Aminotransferase (ALT/SGPT) 32, Alkaline Phosphatase 115, Total Protein 5.3L, Albumin 2.9L Assessment/Plan Assessment/Plan Assessment/Plan Bilateral Wound VAC over Hip incision Plan to leave wound VAC on until Prevena battery dies and then will take them both down and asses whether they need to be replaced or left off. Thank you for this consult. Clinical Quality Measures DVT/VTE Risk/Contraindication: Risk Factor Score Per Nursin RFS Level Per Nursing on Admit: 4+=Very High Contraindications-Mechi: Other *list below* Other: High Bleed risk. On Mobic and ASA. SCDS only. ELSI MAY DO Aug 05, 2018 23:01
[2018-08-06] MEDS: HYDROcodone/APAP 7.5 MG/325 MG (LORTAB, LORCET PLUS) TABLET PO PRN ×3 (05:24→18:52)
--- NOTE | 2018-08-06 05:24 | NUR ---
c/o maye hip pain level 6/10 on numeric scale, lortab 7.5 2 tabs po given
--- NOTE | 2018-08-06 05:40 | NUR ---
pain level 2/10 on numeric scale
[2018-08-06 06:00] VITALS: BP 118/74
[2018-08-06] MEDS: PANTOPRAZOLE 40 MG (PROTONIX) TAB PO SCH (06:13)
[2018-08-06] MEDS: ceFAZolin 1,000 MG/SWFI 10 ML IV PUSH IV SCH ×6 (06:13→22:05)
[2018-08-06] MEDS: ASCORBIC ACID (VIT C) 500 MG TABLET PO SCH (06:13)
--- NOTE | 2018-08-06 07:09 | NUR ---
bedside report given to MEE MCFARLAND
--- NOTE | 2018-08-06 08:45 | PM&R Progress Note ---
Subjective HPI/CC On Admission Date Seen by Provider: August 06, 2018 Time Seen by Provider: 08:30 CC: Bilateral hip surgical incisions abscess with cellulitis and subsequent debility HPI: This is a 52-year-old white female clinic patient of Dr. Coelho in [facility] who is known to me from prior surgeries at [facility] by Dr. Méndez who presented to inpatient rehab unit at [facility] due to severe debility following bilateral hip incision abscesses and cellulitis in need of 6 weeks of IV antibiotics of Ancef 500 mg IV every 8 hours after a PICC line placement in addition to severe debility following severe postoperative anemia due to acute blood loss with subsequent hemoglobin of 5.4 requiring 4 units of blood last week. She was placed on broad-spectrum antibiotics and culture revealed E. coli pansensitive so she will continue the IV antibiotics until completed and will participate in all therapies to strengthen in order to return back home independently after wound vacs are discontinued. Dr. Cantu is gracious enough to monitor the wound vacs while she is hospitalized at [facility] along with the wound care team. I checked her home medications , current hospital meds from [facility] and review my previous consultation. She was living independently alone without difficulty or use of assistive devices and will return back home with modified independent activities of daily living along with ambulation since she lives alone. Subjective/Events-last exam PICC was placed without difficulty Ancef Q8hrs is tolerated Had BM yesterday several times Impulsive so fall risk Dr Cantu appreciated for wound care management Draining right right hip minimal but a lot from left wound Conferred with RN Reviewed therapy notes Note from 08/05/18: Pt doing well but still impulsive and has had a bed alarm and chair alarm placed. Wound vac is in place and Dr. Cantu has graciously agreed to oversee that with Aamir in wound care. Had a BM this morning after multiple medications were given lastnight. Picc line will be placed for IV Ancef of 500 mg IV Q8hrs for a total of 6 weeks. Peripheral IV infiltrated this morning so picc line will be placed and Ancef will be restarted. Conferred with RN. Reviewed therapy notes. Overall getting around pretty well but definitely needs intensive therapy. Review of Systems General: Fatigue Musculoskeletal: leg pain Objective Exam Vital Signs Vital Signs Date Time Temp Pulse Resp B/P (MAP) Pulse Ox O2 Delivery O2 Flow Rate FiO2 08/06/18 09:00 95 Room Air 08/06/18 06:00 97.4 96 20 118/74 (89) Capillary Refill : Less Than 3 Seconds General Appearance: No Apparent Distress, WD/WN, Chronically ill HEENT: PERRL/EOMI, TMs Normal, Normal ENT Inspection, Pharynx Normal, Moist Mucous Membranes Neck: Full Range of Motion, Normal Inspection, Non Tender, Supple Respiratory: Chest Non Tender, Lungs Clear, Normal Breath Sounds, No Accessory Muscle Use, No Respiratory Distress Cardiovascular: Regular Rate, Rhythm, No Edema, No Gallop, No JVD, No Murmur Gastrointestinal: Normal Bowel Sounds, No Organomegaly, No Pulsatile Mass, Non Tender, Soft Back: Normal Inspection, No CVA Tenderness, No Vertebral Tenderness Extremity: Normal Capillary Refill, Normal Inspection, Normal Range of Motion, Non Tender, No Calf Tenderness, No Pedal Edema Neurologic/Psychiatric: Alert, Oriented x3, Normal Mood/Affect, Motor Weakness (weakness lower legs 4/[address] bilateral thighs) Skin: Normal Color, Warm/Dry Lymphatic: No Adenopathy Results/Procedures Lab Patient resulted labs reviewed. FIM Transfers Therapy Code Descriptions/Definitions Functional Shannon Measure: 0=Not Assessed/NA 4=Minimal Assistance 1=Total Assistance 5=Supervision or Setup 2=Maximal Assistance 6=Modified Shannon 3=Moderate Assistance 7=Complete Shannon Therapy Quality Codes: 6 Independent with activity with or without an assistive device 5 Patient requires set up or clean up by helper. Patient completes activity by themselves 4 Supervision or touching assist (CGA). Dequincy provide cues , steadying assist 3 The helper provides less than half the effort to complete the activity 2 The helper provides more than half the effort to complete the activity 1 Dependent. The helper does all the effort to complete an activity 7 Patient refused to complete or attempt activity 9 The patient did not perform the activity before the current illness or injury 88 Not attempted due to Medical conditions or safety concerns Mental Status/Objective Comprehension: 7 Expression: 7 Social Interaction: 7 Problem Solvin Memory: 7 ADL-Treatment Feedin (Pt reports feeding self and managing containers) Eating (QC): 6 Groomin (Pt combed hair after set up) Bathin (RN states sponge bath only at this time secondary to bilateral wound vacs. Sponge bath completed seated in chair. Pt bathed upper body after set up. Pt able to wash bilateral upper legs, juwan area, and buttocks. Assist for lower legs and feet. Assisted pt to wash hair. Pt able to dry hair with towel) Shower/Bathe Self (QC): 3 Upper Extremity Dressin (set up) Upper Body Dressing (QC): 5 Lower Extremity Dressin (Pt required min assist to start pants over feet. Able to complete pant hike with CGA. Assist required to don shoes. Pt states she is interested in hip kit, but does not have AE at home.) Lower Body Dressing (QC): 3 Toilet/Commode Transfer: 4 (CGA) Toilet Transfer (QC): 4 Assessment/Plan Assessment and Plan Assess & Plan/Chief Complaint Assessment: Bilateral hip incision abscesses with wound vacs in place and needs 6 weeks of abx with PICC line placement Debility Post op anemia hgb 5.4 s/p 4 units of blood last week now 10 but low iron placing on iron infusions OA HLP TBI Depression Anxiety Constipation x 7 days now resolved Plan: BM regimen aggressive type to maintain to prevent recurrent constipation Iron infusions Monitor pain PT/OT Home meds GERD Tx (1) Incisional abscess (2) Constipation (3) Anxiety (4) Depression (5) Hyperlipidemia (6) Osteoarthritis (7) GERD (gastroesophageal reflux disease) (8) TBI (traumatic brain injury) (9) Postoperative anemia (10) Transfusion history (11) Status post hip replacement (12) Former smoker (13) Iron deficiency INGA MORFIN DO August 06, 2018 08:45
--- NOTE | 2018-08-06 08:45 | Individualized Plan of Care ---
Individualized Plan of Care Rehab Nursing IPOC Order Admission Date Aug 04, 2018 at 15:51 Current Orders Orders Admission Order(Inpt,Obs,Sdc) (08/04/18 13:47) Vital Signs: Per Unit Policy ( 08,16,00 (08/04/18 13:47) Mortgage Loan Computation Clerk-Inpt Rehab Con (08/04/18 13:47) Rehab Nursing Orders-Ipoc (08/04/18 13:47) Physical Therapy Rehab Orders (08/04/18 13:47) Occupational Therapy Rehab Ord (08/04/18 13:47) Speech Therapy Rehab Orders (08/04/18 13:47) General/Regular (08/04/18 Dinner) Intake & Output 06,14,22 (08/04/18 13:47) Precautions (Aru) (08/04/18 13:47) Weekly Weight (Lbs) WEEK (08/04/18 13:47) Rehab-Intensity Of Therapy (08/04/18 13:47) Code/Resuscitation (08/04/18 13:47) Initiate Admission Nursing Pro .admission (08/04/18 13:47) Isolation Central Supply Req (08/04/18 13:47) Aspirin Enteric Coated Tablet (Ecotrin T (08/05/18 09:00) Atorvastatin Tablet (Lipitor) (08/04/18 21:00) Calcium Carbonate Tablet (Calcarb 600 Ta (08/04/18 21:00) Clonazepam Tablet (Klonopin Tablet) (08/04/18 21:00) Gabapentin Capsule/Tablet (Neurontin Cap (08/04/18 21:00) Pantoprazole Tablet (Protonix Tablet) (08/05/18 09:00) Tramadol Tablet (Ultram Tablet) (08/04/18 17:45) Aripiprazole Tablet (Abilify Tablet) (08/05/18 09:00) Fluoxetine Capsule (Prozac Capsule) (08/05/18 09:00) Hydrocodone/Apap 7.5/325 Tab (Lortab 7. (08/04/18 18:00) Meloxicam Tablet (Mobic Tablet) (08/04/18 21:00) Venous Access Request Order (08/04/18 17:39) Cefazolin Injection (Ancef Injection) (08/04/18 17:45) Cbc With Automated Diff (08/05/18 06:00) Comprehensive Metabolic Panel (08/05/18 06:00) Iron Test (Fe) (08/05/18 06:00) Sequential Compression Device 08,20 (08/04/18 17:41) Ambulate 08,12,20 (08/04/18 17:47) Sequential Compression Device 08,20 (08/04/18 17:47) Dvt/Vte Risk - Notifiy Physici 08 (08/04/18 17:47) Ascorbic Acid Tablet (Vitamin C Tablet) (08/05/18 07:00) Senna S Tablet (Senokot S Tablet) (08/04/18 20:45) Polyethylene Glycol Powder Pkt (Miralax (08/04/18 20:45) Lactulose Oral Solution (Enulose Oral So (08/04/18 20:45) Acetaminophen Tablet (Tylenol Tablet) (08/04/18 20:45) Alprazolam Tablet (Xanax Tablet) (08/04/18 20:45) Calcium Carbonate Chew Tablet (Antacid C (08/04/18 20:45) Diphenhydramine Tablet (Benadryl Tablet) (08/04/18 20:45) Docusate Sodium Capsule (Colace Capsule) (08/04/18 20:45) Bisacodyl Suppository (Dulcolax Supposit (08/04/18 21:00) Melatonin Tablet (Melatonin Tablet) (08/04/18 20:45) Ondansetron Injection (Zofran Injectio (08/04/18 20:45) Incentive Spirometry (Nursing) Q2H (08/04/18 20:36) Lactulose Oral Solution (Enulose Oral So (08/04/18 21:39) Bisacodyl Suppository (Dulcolax Supposit (08/04/18 21:39) Melatonin Tablet (Melatonin Tablet) (08/04/18 21:39) Senna S Tablet (Senokot S Tablet) (08/04/18 21:39) Polyethylene Glycol Powder Pkt (Miralax (08/04/18 21:39) Cefazolin Injection (Ancef Injection) (08/05/18 14:00) Pantoprazole Tablet (Protonix Tablet) (08/06/18 06:00) Chest 1 View, Ap/Pa Only (08/05/18 13:45) Patient Visit (08/05/18 ) Speech Sound Lang Comp (08/05/18 ) Patient Visit (08/05/18 ) Pt Eval Moderate Complexity (08/05/18 ) Gait Training, Ea 15 Min (08/05/18 ) Functional Activities, Ea 15 (08/05/18 ) Exercise Therap, Ea 15 Min (08/05/18 ) Vte Contraindication (08/05/18 17:14) Iron Sucrose Injection (Venofer Injectio (08/07/18 09:00) Amb Us Guide Vascular Access (08/05/18 ) Patient Visit (08/06/18 ) Gait Training, Ea 15 Min (08/06/18 ) Exercise Therap, Ea 15 Min (08/06/18 ) Functional Activities, Ea 15 (08/06/18 ) Patient Visit (08/06/18 ) Therapeutic, Group (08/06/18 ) Rehab Nursing Orders: Ongoing Assess. of Function Status, Bowel Management, Disease Management & Educaiton, DVT Prophylaxis, Fall Prevention, Medication Management & Education, Pain Management Intensity of Therapy to be met Patient to be seen: Min.3h per day/5 of 7d PT IPOC Problem List: Activity Tolerance, Functional Strength, Safety, Balance, Gait, Transfer, Bed Mobility, ROM Treatment Plan: Continue Plan of Care Bed Mobility, Education, Functional Activity Lorena, Functional Strength, Group Therapy, Gait, Safety, Therapeutic Exercise, Transfers Treatment Duration: August 26, 2018 Frequency: At least 5 of 7 days/Wk (IRF) Estimated Hrs Per Day: 1.5 hours per day OT IPOC Problems: Decreased Safety Aware, Decreased UE Strength, Impaired Self-Care Skills OT Treatment, Training and Edu: Yes OT Problems Pt to benefit from skilled OT intervention for ADL training, transfers, strengthening, and home safety education to increase level of independence and allow safe discharge home. Plan of Care: ADL Retraining, Functional Mobility, Group Exercise/Act as Ind, UE Funct Exercise/Act Treatment Duration: August 26, 2018 Frequency: At least 5 of 7 days/Wk (IRF) Estimated Hrs Per Day: 1.[address] IPOC Speech Therapy Treatment Plan: Continue Plan of Care Treatment Duration: Aug 05, 2018 Frequency: 1 time per week Estimated Hrs Per Day: .25 hour per day Mortgage Loan Computation Clerk/Case Mgmt Mortgage Loan Computation Clerk/Case Managemen: Discharge Planning Dietitian/Measuring Clerk Dietitian/Measuring Clerk to monitor nutritional status and make changes and/or recommendations as needed and work with speech pathology on dietary upgrades as the occur. Physician IPOC Medical Issues being managed closely and that require the 24 hour availability of a physician: Wound vac management and IV abx Q8hrs require close physician supervision Medical Issues: Bowel/Bladder Function, Fluid/Electrolyte/Nutrition Balance, Pain Management Brief Synthesis of Preadmission Screen, Post-Admission Evaluation, and Therapy Evaluations: PT will work on fall prevention and decrease impulsivity OT will focus on independent ADL's Medical Prognosis: Good Anticipated Length of Stay: 15 days INGA MORFIN DO August 06, 2018 08:45
[2018-08-06] MEDS: POLYETHYLENE GLYCOL 17 GM (MIRALAX) PACK PO SCH ×2 (09:00→20:47)
[2018-08-06] MEDS: LACTULOSE SYRUP 10GM/15ML (ENULOSE) 30ML UDC PO SCH ×2 (09:00→20:46)
[2018-08-06] MEDS: BISACODYL 10 MG SUPP (DULCOLAX) PR SCH ×2 (09:00→20:48)
[2018-08-06] MEDS: SENNA W/DOCUSATE (SENOKOT S) TABLET PO SCH ×2 (09:00→20:47)
[2018-08-06] MEDS: ASPIRIN E.C. 81 MG (ECOTRIN) TAB PO SCH (11:01)
[2018-08-06] MEDS: MELOXICAM 7.5 MG (MOBIC) TABLET PO SCH ×2 (11:02→20:45)
[2018-08-06] MEDS: FLUoxetine HCL 20 MG (PROzac) CAP PO SCH (11:02)
[2018-08-06] MEDS: clonazePAM 0.5 MG (KlonoPIN) TAB PO SCH ×3 (11:02→20:44)
[2018-08-06] MEDS: GABAPENTIN 600 MG (NEURONTIN) TAB PO SCH ×3 (11:02→20:44)
--- NOTE | 2018-08-06 11:41 | Occupational Ther Daily Note ---
OT Current Status-Daily Note Subjective Pt sitting EOB, agrees to therapy. Pt reports 7/10 pain in bilateral hips. Mental Status/Objective Therapy Code Descriptions/Definitions Functional Debary Measure: 0=Not Assessed/NA 4=Minimal Assistance 1=Total Assistance 5=Supervision or Setup 2=Maximal Assistance 6=Modified Debary 3=Moderate Assistance 7=Complete Debary ADL-Treatment Pt sitting EOB, already dressed. Pt attempting to don shoes. Elastic shoe laces were placed in shoes and pt was able to don shoes with set up and increased time using long handled shoe horn. Pt requests to complete grooming. Sit to stand with supervision. Pt completed grooming tasks with set up while standing at sink. Pt denied need to complete other ADL tasks at this time. Therapy Code Descriptions/Definitions Functional Debary Measure: 0=Not Assessed/NA 4=Minimal Assistance 1=Total Assistance 5=Supervision or Setup 2=Maximal Assistance 6=Modified Debary 3=Moderate Assistance 7=Complete Debary Therapy Quality Codes: 6 Independent with activity with or without an assistive device 5 Patient requires set up or clean up by helper. Patient completes activity by themselves 4 Supervision or touching assist (CGA). [place] provide cues , steadying assist 3 The helper provides less than half the effort to complete the activity 2 The helper provides more than half the effort to complete the activity 1 Dependent. The helper does all the effort to complete an activity 7 Patient refused to complete or attempt activity 9 The patient did not perform the activity before the current illness or injury 88 Not attempted due to Medical conditions or safety concerns Grooming (FIM): 5 Oral Hygiene (QC): 5 Other Treatment Gait to therapy gym with FWW, assist to manage wound vac. Arm bike [id number] to increase overall strength and activity tolerance needed for functional tasks. Pt performed task with moderate resistance and steady pace. No rest breaks needed. Pt performed bilateral UE exercises to increase strength for ADLs and transfers. Pt performed shoulder flexion, forward press, biceps curls, and wrist flex/ext x15 reps with 2# dowel srinivasan. Rest breaks between exercises. Pt returned to room, sitting in chair with needs met after session. OT Short Term Goals Short Term Goals Transfers (B,C,W/C) (FIM): 6 1=Demonstrate adherence to instructed precautions during ADL tasks. 2=Patient will verbalize/demonstrate understanding of assistive devices/ modifications for ADL. 3=Patient will improve strength/tolerance for activity to enable patient to perform ADL's. OT Sanitary Chemist Goals Jail Goals Time Frame: August 26, 2018 Eating (FIM): 6 Eating (QC): 6 Groomin Oral Hygiene (QC): 6 Bathing(FIM): 6 Shower/Bathe Self (QC): 6 Upper Body Dressing(FIM): 6 Upper Body Dressing (QC): 6 Lower Body Dressing(FIM): 6 Lower Body Dressing (QC): 6 On/Off Footwear (QC): 6 Toileting(FIM): 6 Toileting Hygiene (QC): 6 Toilet/Commode Transfer(FIM): 6 Toilet/Commode Transfer (QC): 6 Shower Transfer(FIM): 6 Additional Goals: 1-Demonstrate ADL Tasks, 2-Verbalize Understanding, 3- ImproveStrength/Lorena 1=Demonstrate adherence to instructed precautions during ADL tasks. 2=Patient will verbalize/demonstrate understanding of assistive devices/ modifications for ADL. 3=Patient will improve strength/tolerance for activity to enable patient to perform ADL's. OT Education/Plan Discharge Recommendations Plan/Recommendations: Continue POC Treatment Plan/Plan of Care Patient would benefit from OT for education, treatment and training to promote independence in ADL's, mobility, safety and/or upper extremity function for ADL' s. Plan of Care: ADL Retraining, Functional Mobility, Group Exercise/Act as Ind, UE Funct Exercise/Act Treatment Duration: August 26, 2018 Frequency: At least 5 of 7 days/Wk (IRF) Estimated Hrs Per Day: 1.5 hours per day Rehab Potential: Fair Time/GCodes Start Time: 09:00 Stop Time: 10:00 Total Time Billed (hr/min): 60 Billed Treatment Time 1 visit, ADLx2(25minutes), EXx2(35minutes) PARISH STROUD OT August 06, 2018 11:41
--- NOTE | 2018-08-06 12:20 | Physical Therapy Daily Note ---
PT Daily Note-Current Subjective Pt sitting in recliner upon arrival. Pt agrees to PT. Pt is a little teary with thought of not being as well as pt thinks she should be. BANDER AND CELLOPHANER HELPER MACHINE reassures pt that pt is making good progress and stay motivated. Pain Numeric Pain Scale: 7 Location: Right, Incisional, Left Location Body Site: Hip Pain Description: Ache, Tightness Mental Status Patient Orientation: Person, Place, Time, Situation Attachments: Other-See Comments (Wound Vac.) Transfers Therapy Code Descriptions/Definitions Functional [place] Measure: 0=Not Assessed/NA 4=Minimal Assistance 1=Total Assistance 5=Supervision or Setup 2=Maximal Assistance 6=Modified [place] 3=Moderate Assistance 7=Complete [place] Therapy Quality Codes: 6 Independent with activity with or without an assistive device 5 Patient requires set up or clean up by helper. Patient completes activity by themselves 4 Supervision or touching assist (CGA). [place] provide cues , steadying assist 3 The helper provides less than half the effort to complete the activity 2 The helper provides more than half the effort to complete the activity 1 Dependent. The helper does all the effort to complete an activity 7 Patient refused to complete or attempt activity 9 The patient did not perform the activity before the current illness or injury 88 Not attempted due to Medical conditions or safety concerns Scootin Supine to/from Sit: 6 Sit to/from Stand: 6 Sit to Lying (QC): 6 Sit to Stand (QC): 6 Weight Bearing Right Lower Extremity: Right Weight Bearing/Tolerated Left Lower Extremity: Left Weight Bearing/Tolerated Gait Training Does the Patient Walk?: Yes Distance (FIM): 3=150 ft Distance: 180' Walk 10 feet (QC): 6 Walk 50 ft with 2 Turns(QC): 6 Walk 150 ft (QC): 6 Gait Level of Assist: 6 Gait Persons Needed: 1 Gait Assistive Device: FWW Pt is reminded to stay closer to FWW. Wheelchair Training Does the Pt Use a Wheelchair?: No Exercises Supine Ex: Ankle pumps, Quad Set, Glut sets, Straight leg raise Supine Reps: 10 NuStep Minutes: 7 NuStep Workload: 4 Treatments Pt transfers from recliner to standing then ambulates in hallway using FWW. Pt completes Supine Ex on mat using bolster for pain relief. Pt uses NuStep until needing to return to room to use restroom. Pt transfers to Supine in bed for rest at end of tx with all needs met. Assessment Current Status: Good Progress Pain from incisions limits some participation at this time. PT Short Term Goals Short Term Goals Time Frame: August 12, 2018 Transfers (B,C,W/C) (FIM): 6 Gait (FIM): 6 Gait Distance Comment: 150' Gait Level of Assist: 6 Gait Assistive Device: FWW PT Food Safety Technician Goals Usp Goals PT Food Safety Technician Goals Time Frame: August 26, 2018 Transfers (B,C,W/C) (FIM): 6 Sit to Lying (QC): 6 Lying-Sitting on Side/Bed(QC): 6 Sit to Stand (QC): 6 Rollin Roll Left to Right (QC): 6 Chair/Eth-ld-Bsfml Xfer(QC): 6 Car Transfer (QC): 6 Gait (FIM): 6 Distance: 300' Walk 10 feet (QC): 6 Walk 10ft-Uneven Surface(QC): 6 Walk 50ft with 2 Turns (QC): 6 Walk 150 ft (QC): 6 Gait Level of Assist: 6 Gait Assistive Device: FWW Stairs (FIM): 2 # of Steps: 4 1 Step (curb) (QC): 4 4 Steps (QC): 4 Stairs Level Of Assist: 5 PT Plan Problem List Problem List: Activity Tolerance, Safety, Gait Treatment/Plan Treatment Plan: Continue Plan of Care Treatment Plan: Bed Mobility, Education, Functional Activity Lorena, Functional Strength, Group Therapy, Gait, Safety, Therapeutic Exercise, Transfers Treatment Duration: August 26, 2018 Frequency: At least 5 of 7 days/Wk (IRF) Estimated Hrs Per Day: 1.5 hours per day Patient and/or Family Agrees t: Yes Safety Risks/Education Patient Education: Gait Training, Transfer Techniques, Correct Positioning, Safety Issues Teaching Recipient: Patient Teaching Methods: Discussion Response to Teaching: Verbalize Understanding Time/GCodes Time In: 1000 Time Out: 1100 Total Billed Treatment Time: 60 Total Billed Treatment 1, GT (20m), EX x2 (30m) & FA (10m) G Codes Necessary: NIDHI Carey BANDER AND CELLOPHANER HELPER MACHINE August 06, 2018 12:20
--- NOTE | 2018-08-06 14:50 | Therapy Group Daily Note ---
Therapy Daily Group Note Patient Education Topic Fall Prevention, Energy Cons, Other List Below (ARU Expectations) Exercises LE Seated Exercise, UE Exercise Session Ratio (pt:therapist): 4:1 Goal of Session: Education on ARU Expectations, Energy Conservation Tech., Home Safety Strategies, UE/LE Strengthing, Safety with Transfers Goal Met for this Session: Yes Pt Benefit of Group: Contributions to Others, F/U Use of Strategies @Home, Increased Functional Safety, Increased Functional Strength, Improved Cognition, Recognition of Peers, Socialization Other/Notes Pt perform functional mobility to OT/PT group in ARU commons area. Group consisted of introductions (name, place living, favorite hobby), socialization, ARU expectations/description, and UE/LE seated exercises. Pt able to introduce self then actively listened to peers. Pt acknowledged understanding of ARU by verbalizing in affirmative. Pt demo ability to complete UE/LE seated exercises without difficulty. Using light weight dice pt demo ability to throw dice and which number it lands on was the reps the patient completed as a group. patient has to instruct the other group member of the exercise. After therapy, pt lying in bed with call light/phone in reach. All needs met in room. Start Time: 13:00 Stop Time: 14:00 Total Billed Treatment Time: 60 Total Billed Treatment 1, GRP NIDHI CLARK PTA August 06, 2018 14:50
[2018-08-06 17:41] VITALS: BP 115/73
--- NOTE | 2018-08-06 19:05 | NUR ---
bedside report received from MEE MCFARLAND, assume care of pt
[2018-08-06] MEDS: CALCIUM CARBONATE 600 MG (CALCARB) TAB PO SCH (20:45)
[2018-08-06] MEDS: ATORVASTATIN 40 MG (LIPITOR) TABLET PO SCH (20:45)
--- NOTE | 2018-08-06 20:50 | NUR ---
pt refused miralx, Senokot, Enulose & Dulcolax supp
--- NOTE | 2018-08-06 21:00 | NUR ---
assessments & interventions completed, see assessments & interventions, up with 1 person assist & walker, maye wound vacs in place & functioning well
[2018-08-06] MEDS: MELATONIN 3 MG TABLET PO PRN (22:08)
--- NOTE | 2018-08-06 22:08 | NUR ---
melatonin 3mg po given for sleep
[2018-08-07] MEDS: HYDROcodone/APAP 7.5 MG/325 MG (LORTAB, LORCET PLUS) TABLET PO PRN ×4 (00:01→18:20)
--- NOTE | 2018-08-07 00:01 | NUR ---
c/o maye hip pain level 7/10 on numeric scale, lortab 7.5mg 2 tabs po given
--- NOTE | 2018-08-07 00:40 | NUR ---
resting quietly in bed, pain level 0/10 on flacc scale
[2018-08-07 05:57] VITALS: BP 127/80
[2018-08-07] MEDS: ceFAZolin 1,000 MG/SWFI 10 ML IV PUSH IV SCH ×6 (06:10→21:42)
[2018-08-07] MEDS: ASCORBIC ACID (VIT C) 500 MG TABLET PO SCH (06:13)
[2018-08-07] MEDS: PANTOPRAZOLE 40 MG (PROTONIX) TAB PO SCH (06:13)
--- NOTE | 2018-08-07 06:15 | NUR ---
c/o maye hip pain level 7/10 on numeric scale, lortab 7.5 2 tabs po given
--- NOTE | 2018-08-07 06:45 | NUR ---
pain level 2/10 on numeric scale
--- NOTE | 2018-08-07 07:10 | NUR ---
bedside report given to MEE MCFARLAND
[2018-08-07] MEDS: LACTULOSE SYRUP 10GM/15ML (ENULOSE) 30ML UDC PO SCH ×2 (08:21→20:35)
[2018-08-07] MEDS: SENNA W/DOCUSATE (SENOKOT S) TABLET PO SCH ×2 (08:21→20:34)
[2018-08-07] MEDS: POLYETHYLENE GLYCOL 17 GM (MIRALAX) PACK PO SCH ×2 (08:21→20:37)
[2018-08-07] MEDS: BISACODYL 10 MG SUPP (DULCOLAX) PR SCH ×2 (08:22→20:37)
--- NOTE | 2018-08-07 08:22 | PM&R Progress Note ---
Subjective HPI/CC On Admission Date Seen by Provider: August 07, 2018 Time Seen by Provider: 08:30 CC: Bilateral hip surgical incisions abscess with cellulitis and subsequent debility HPI: This is a 52-year-old white female clinic patient of Dr. Coelho in [facility] who is known to me from prior surgeries at [facility] by Dr. Méndez who presented to inpatient rehab unit at [facility] due to severe debility following bilateral hip incision abscesses and cellulitis in need of 6 weeks of IV antibiotics of Ancef 500 mg IV every 8 hours after a PICC line placement in addition to severe debility following severe postoperative anemia due to acute blood loss with subsequent hemoglobin of 5.4 requiring 4 units of blood last week. She was placed on broad-spectrum antibiotics and culture revealed E. coli pansensitive so she will continue the IV antibiotics until completed and will participate in all therapies to strengthen in order to return back home independently after wound vacs are discontinued. Dr. Cantu is gracious enough to monitor the wound vacs while she is hospitalized at [facility] along with the wound care team. I checked her home medications , current hospital meds from [facility] and review my previous consultation. She was living independently alone without difficulty or use of assistive devices and will return back home with modified independent activities of daily living along with ambulation since she lives alone. Subjective/Events-last exam Patient doing much better Once her wound vacs taken off as soon as possible Ambulating well Still very impulsive Alarms remain in place Fall risk remains Denies any significant pain issues Overall using incentive spirometer as ordered Conferred with RN Reviewed therapy notes Bowels are moving Review of Systems Musculoskeletal: leg pain Objective Exam Vital Signs Vital Signs Date Time Temp Pulse Resp B/P (MAP) Pulse Ox O2 Delivery O2 Flow Rate FiO2 08/07/18 09:00 Room Air 08/07/18 05:57 98.6 114 20 127/80 (96) 97 Capillary Refill : Less Than 3 Seconds General Appearance: No Apparent Distress, WD/WN, Chronically ill HEENT: PERRL/EOMI, TMs Normal, Normal ENT Inspection, Pharynx Normal, Moist Mucous Membranes Neck: Full Range of Motion, Normal Inspection, Non Tender, Supple Respiratory: Chest Non Tender, Lungs Clear, Normal Breath Sounds, No Accessory Muscle Use, No Respiratory Distress Cardiovascular: Regular Rate, Rhythm, No Edema, No Gallop, No JVD, No Murmur Gastrointestinal: Normal Bowel Sounds, No Organomegaly, No Pulsatile Mass, Non Tender, Soft Back: Normal Inspection, No CVA Tenderness, No Vertebral Tenderness Extremity: Normal Capillary Refill, Normal Inspection, Normal Range of Motion, Non Tender, No Calf Tenderness, No Pedal Edema Neurologic/Psychiatric: Alert, Oriented x3, Normal Mood/Affect, Motor Weakness (weakness lower legs 4/[address] bilateral thighs) Skin: Normal Color, Warm/Dry Lymphatic: No Adenopathy Results/Procedures Lab Patient resulted labs reviewed. FIM Transfers Therapy Code Descriptions/Definitions Functional [place] Measure: 0=Not Assessed/NA 4=Minimal Assistance 1=Total Assistance 5=Supervision or Setup 2=Maximal Assistance 6=Modified [place] 3=Moderate Assistance 7=Complete [place] Therapy Quality Codes: 6 Independent with activity with or without an assistive device 5 Patient requires set up or clean up by helper. Patient completes activity by themselves 4 Supervision or touching assist (CGA). [place] provide cues , steadying assist 3 The helper provides less than half the effort to complete the activity 2 The helper provides more than half the effort to complete the activity 1 Dependent. The helper does all the effort to complete an activity 7 Patient refused to complete or attempt activity 9 The patient did not perform the activity before the current illness or injury 88 Not attempted due to Medical conditions or safety concerns Mental Status/Objective Comprehension: 7 Expression: 7 Social Interaction: 7 Problem Solvin Memory: 7 ADL-Treatment Feedin (Pt reports feeding self and managing containers) Eating (QC): 6 Groomin Oral Hygiene (QC): 5 Bathin (RN states sponge bath only at this time secondary to bilateral wound vacs. Sponge bath completed seated in chair. Pt bathed upper body after set up. Pt able to wash bilateral upper legs, juwan area, and buttocks. Assist for lower legs and feet. Assisted pt to wash hair. Pt able to dry hair with towel) Shower/Bathe Self (QC): 3 Upper Extremity Dressin (set up) Upper Body Dressing (QC): 5 Lower Extremity Dressin (Pt required min assist to start pants over feet. Able to complete pant hike with CGA. Assist required to don shoes. Pt states she is interested in hip kit, but does not have AE at home.) Lower Body Dressing (QC): 3 Toilet/Commode Transfer: 4 (CGA) Toilet Transfer (QC): 4 Assessment/Plan Assessment and Plan Assess & Plan/Chief Complaint Assessment: Bilateral hip incision abscesses with wound vacs in place and needs 6 weeks of abx with PICC line placement Debility Post op anemia hgb 5.4 s/p 4 units of blood last week now 10 but low iron placing on iron infusions OA HLP TBI Depression Anxiety Constipation x 7 days now resolved Plan: BM regimen aggressive type to maintain to prevent recurrent constipation Iron infusions Monitor pain PT/OT Home meds GERD Tx (1) Incisional abscess (2) Constipation (3) Anxiety (4) Depression (5) Hyperlipidemia (6) Osteoarthritis (7) GERD (gastroesophageal reflux disease) (8) TBI (traumatic brain injury) (9) Postoperative anemia (10) Transfusion history (11) Status post hip replacement (12) Former smoker (13) Iron deficiency INGA MORFIN DO August 07, 2018 08:22
[2018-08-07] MEDS: clonazePAM 0.5 MG (KlonoPIN) TAB PO SCH ×3 (08:26→20:34)
[2018-08-07] MEDS: GABAPENTIN 600 MG (NEURONTIN) TAB PO SCH ×3 (08:27→20:34)
[2018-08-07] MEDS: MELOXICAM 7.5 MG (MOBIC) TABLET PO SCH ×2 (08:27→20:34)
[2018-08-07] MEDS: FLUoxetine HCL 20 MG (PROzac) CAP PO SCH (08:27)
[2018-08-07] MEDS: ASPIRIN E.C. 81 MG (ECOTRIN) TAB PO SCH (08:27)
[2018-08-07] MEDS: IRON SUCROSE 200 MG/10 ML (VENOFER) VIAL IV SCH (08:27)
--- NOTE | 2018-08-07 10:11 | NUR ---
DIRECTOR OF INVESTIGATIONS met with patient to review team conference summary. As patient just recently admitted, requires min assist for lower body activity, a need for improved endurance, requires wound VAC and long-term IV antibiotics, team has recommended patient be reevaluated at next team conference on . Patient is agreeable to this. Aamir, wound care nurse will evaluate [facility] wound vac on Friday 08/11 to determine if it can be removed. Patient provided DIRECTOR OF INVESTIGATIONS with former home infusion company of [employer] for IV antibiotics. As patient was relatively high functioning upon admission patient will likely discharge next week. DIRECTOR OF INVESTIGATIONS will continue to follow for additional needs.
--- NOTE | 2018-08-07 10:24 | NUR ---
LORTAB 7.5MG PO 2 TABS IN GYM FOR C/O PAIN 11/15.
--- NOTE | 2018-08-07 10:31 | Occupational Ther Daily Note ---
OT Current Status-Daily Note Subjective pt laying in bed upon OT Arrival in no apparent distress. pt agreed to OT TX session with fous on increasing independence with ADLS/ IADLs Mental Status/Objective Patient Orientation: Normal For Age Therapy Code Descriptions/Definitions Functional [place] Measure: 0=Not Assessed/NA 4=Minimal Assistance 1=Total Assistance 5=Supervision or Setup 2=Maximal Assistance 6=Modified [place] 3=Moderate Assistance 7=Complete [place] Attachments: Other-See Comments (wound vac Maye legs) ADL-Treatment Therapy Code Descriptions/Definitions Functional [place] Measure: 0=Not Assessed/NA 4=Minimal Assistance 1=Total Assistance 5=Supervision or Setup 2=Maximal Assistance 6=Modified [place] 3=Moderate Assistance 7=Complete [place] Therapy Quality Codes: 6 Independent with activity with or without an assistive device 5 Patient requires set up or clean up by helper. Patient completes activity by themselves 4 Supervision or touching assist (CGA). [place] provide cues , steadying assist 3 The helper provides less than half the effort to complete the activity 2 The helper provides more than half the effort to complete the activity 1 Dependent. The helper does all the effort to complete an activity 7 Patient refused to complete or attempt activity 9 The patient did not perform the activity before the current illness or injury 88 Not attempted due to Medical conditions or safety concerns Eating (FIM): 6 (dentures) Eating (QC): 6 Grooming (FIM): 5 (supervision for safety/ balance while standing at sink. noted limited activity tolerance required seated rest breaks ) Oral Hygiene (QC): 4 Bathing (FIM): 5 (standing/ sitting at sinkside. shower not completed secodnary to wound vac) Bathing Location: L Arm, R Arm, L Upper Leg, R Upper Leg, L Lower Leg ( including foot), R Lower Leg (including foot), Chest, Abdomen, Buttocks, Perineal Area Shower/Bathe Self (QC): 4 Upper Body (FIM): 5 Upper Body Dressing (QC): 4 Lower Body Dressing (FIM): 5 (pt demo ability to abigail maye shoes and pants with SBA for safety/ balance ) Lower Body Dressing (QC): 4 On/Off Footwear (QC): 4 Toileting (FIM): 5 (complete 3/3 toiletin tasks with SBA for safety. balance and mangement of wound vac) Toileting Hygiene (QC): 4 Transfers (B, C, W/C) (FIM): 5 (requried required assist with wound vac) Toilet/Commode Transfer (FIM): 5 Toilet Transfer (QC): 5 (SBA for safety/ balance ) Shower Transfer(FIM): 0 (not completed secondary to wound vac) pt demo ability to perform ADLS while standing at sink with intermitted sitting secondary to limited activity tolerance/ endurance. pt required assistance with management wound vac throughout session. pt education on placement of wound vac on RW and making sure it is secure. pt verbalized and demo understanding. Other Treatment pt perform laundry task this date. pt education on placement of RW while performing laundry. pt demo ability to to performing functional mobility to laundry room approx 100 ft then required seated rest break. pt education on sign / symptoms of fatigue and importance of rest breaks. pt verbalized understanding. pt demo ability to perform laundry task with SBA for safety/ balance by placing laundry into washer. pt ambulated back to room with SBA fro safety/ balance. pt sitting in recliner chair, call light within reach, all needs met. Education OT Patient Education: Energy conservation, Modified ADL techniques, Progress toward Goal/Update tx plan, Purpose of tx/functional activities, Reviewed precautions, Safety issues, Transfer techniques Teaching Recipient: Patient Teaching Methods: Demonstration, Discussion Response to Teaching: Verbalize Understanding, Return Demonstration OT Short Term Goals Short Term Goals Transfers (B,C,W/C) (FIM): 6 1=Demonstrate adherence to instructed precautions during ADL tasks. 2=Patient will verbalize/demonstrate understanding of assistive devices/ modifications for ADL. 3=Patient will improve strength/tolerance for activity to enable patient to perform ADL's. OT Chcf Goals Chcf Goals Time Frame: August 26, 2018 Eating (FIM): 6 Eating (QC): 6 Groomin Oral Hygiene (QC): 6 Bathing(FIM): 6 Shower/Bathe Self (QC): 6 Upper Body Dressing(FIM): 6 Upper Body Dressing (QC): 6 Lower Body Dressing(FIM): 6 Lower Body Dressing (QC): 6 On/Off Footwear (QC): 6 Toileting(FIM): 6 Toileting Hygiene (QC): 6 Toilet/Commode Transfer(FIM): 6 Toilet/Commode Transfer (QC): 6 Shower Transfer(FIM): 6 Additional Goals: 1-Demonstrate ADL Tasks, 2-Verbalize Understanding, 3- ImproveStrength/Lorena 1=Demonstrate adherence to instructed precautions during ADL tasks. 2=Patient will verbalize/demonstrate understanding of assistive devices/ modifications for ADL. 3=Patient will improve strength/tolerance for activity to enable patient to perform ADL's. OT Education/Plan Problem List/Assessment Assessment: Decreased Activ Tolerance, Decreased Safety Aware, Impaired Funct Balance, Impaired I ADL's, Impaired Self-Care Skills Discharge Recommendations Plan/Recommendations: Continue POC Patient/Family Goals to increase my balance Treatment Plan/Plan of Care Treatment,Training & Education: Yes Patient would benefit from OT for education, treatment and training to promote independence in ADL's, mobility, safety and/or upper extremity function for ADL' s. Plan of Care: ADL Retraining, Functional Mobility, Group Exercise/Act as Ind, UE Funct Exercise/Act Treatment Duration: August 26, 2018 Frequency: At least 5 of 7 days/Wk (IRF) Estimated Hrs Per Day: 1.5 hours per day Rehab Potential: Fair Time/GCodes Start Time: 08:00 Stop Time: 09:30 Billed Treatment Time ADL 65 minutes, 4 units FA 25 minutes, 2 units RUDDY JO OT August 07, 2018 10:30
--- NOTE | 2018-08-07 12:15 | Physical Therapy Daily Note ---
PT Daily Note-Current Subjective Pt sitting in recliner upon arrival. Pt agrees to PT. Pain Numeric Pain Scale: 8 Location: Left Location Body Site: Hip Pain Description: Ache, Tightness Mental Status Patient Orientation: Person, Place, Situation Attachments: Other-See Comments (Wound Vac.) Transfers Therapy Code Descriptions/Definitions Functional [place] Measure: 0=Not Assessed/NA 4=Minimal Assistance 1=Total Assistance 5=Supervision or Setup 2=Maximal Assistance 6=Modified [place] 3=Moderate Assistance 7=Complete [place] Therapy Quality Codes: 6 Independent with activity with or without an assistive device 5 Patient requires set up or clean up by helper. Patient completes activity by themselves 4 Supervision or touching assist (CGA). [place] provide cues , steadying assist 3 The helper provides less than half the effort to complete the activity 2 The helper provides more than half the effort to complete the activity 1 Dependent. The helper does all the effort to complete an activity 7 Patient refused to complete or attempt activity 9 The patient did not perform the activity before the current illness or injury 88 Not attempted due to Medical conditions or safety concerns Scootin Sit to/from Stand: 6 Sit to Stand (QC): 6 Weight Bearing Right Lower Extremity: Right Weight Bearing/Tolerated Left Lower Extremity: Left Weight Bearing/Tolerated Gait Training Does the Patient Walk?: Yes Distance (FIM): 3=150 ft Distance: 185' Walk 10 feet (QC): 5 Walk 50 ft with 2 Turns(QC): 5 Walk 150 ft (QC): 5 Gait Level of Assist: 5 Gait Persons Needed: 1 Gait Assistive Device: FWW Wheelchair Training Does the Pt Use a Wheelchair?: No Exercises Seated Therapy Exercises: Ankle pumps, Long arc quads, Hip flexion, Kicking activity, Glut set Seated Reps: 15 NuStep Minutes: 10 NuStep Workload: 4 Treatments Pt transfers to standing then ambulates in hallway. Pt uses NuStep for 10m at WL 4 as well as Seated Ex in chair. Pt ambulates in hallway using FWW w/Wound Vac. Pt uses restroom before resting in room with all needs met. Assessment Current Status: Good Progress Pt tolerates tx well although reports pain limits. PT Short Term Goals Short Term Goals Time Frame: August 12, 2018 Transfers (B,C,W/C) (FIM): 6 Gait (FIM): 6 Gait Distance Comment: 150' Gait Level of Assist: 6 Gait Assistive Device: FWW PT Detention Goals Project Mgr Goals PT Project Mgr Goals Time Frame: August 26, 2018 Transfers (B,C,W/C) (FIM): 6 Sit to Lying (QC): 6 Lying-Sitting on Side/Bed(QC): 6 Sit to Stand (QC): 6 Rollin Roll Left to Right (QC): 6 Chair/Bif-pf-Vhljv Xfer(QC): 6 Car Transfer (QC): 6 Gait (FIM): 6 Distance: 300' Walk 10 feet (QC): 6 Walk 10ft-Uneven Surface(QC): 6 Walk 50ft with 2 Turns (QC): 6 Walk 150 ft (QC): 6 Gait Level of Assist: 6 Gait Assistive Device: FWW Stairs (FIM): 2 # of Steps: 4 1 Step (curb) (QC): 4 4 Steps (QC): 4 Stairs Level Of Assist: 5 PT Plan Problem List Problem List: Activity Tolerance, Functional Strength Treatment/Plan Treatment Plan: Continue Plan of Care Treatment Plan: Bed Mobility, Education, Functional Activity Lorena, Functional Strength, Group Therapy, Gait, Safety, Therapeutic Exercise, Transfers Treatment Duration: August 26, 2018 Frequency: At least 5 of 7 days/Wk (IRF) Estimated Hrs Per Day: 1.5 hours per day Patient and/or Family Agrees t: Yes Safety Risks/Education Patient Education: Gait Training, Transfer Techniques, Correct Positioning, Safety Issues Teaching Recipient: Patient Teaching Methods: Discussion Response to Teaching: Verbalize Understanding Time/GCodes Time In: 1000 Time Out: 1100 Total Billed Treatment Time: 60 Total Billed Treatment 1, GT (15m), EX x2 (30m) & FA (15m) G Codes Necessary: NIDHI Carey IMAGING ENGINEER August 07, 2018 12:15
--- NOTE | 2018-08-07 15:25 | Physical Therapy Daily Note ---
PT Daily Note-Current Subjective Pt laying Supine in bed upon arrival. Pt agrees to PT. Pain Numeric Pain Scale: 6 Location: Left Location Body Site: Hip Pain Description: Ache, Tightness Mental Status Patient Orientation: Person, Place, Situation Attachments: Other-See Comments (Wound Vac.) Transfers Therapy Code Descriptions/Definitions Functional [place] Measure: 0=Not Assessed/NA 4=Minimal Assistance 1=Total Assistance 5=Supervision or Setup 2=Maximal Assistance 6=Modified [place] 3=Moderate Assistance 7=Complete [place] Therapy Quality Codes: 6 Independent with activity with or without an assistive device 5 Patient requires set up or clean up by helper. Patient completes activity by themselves 4 Supervision or touching assist (CGA). [place] provide cues , steadying assist 3 The helper provides less than half the effort to complete the activity 2 The helper provides more than half the effort to complete the activity 1 Dependent. The helper does all the effort to complete an activity 7 Patient refused to complete or attempt activity 9 The patient did not perform the activity before the current illness or injury 88 Not attempted due to Medical conditions or safety concerns Scootin Sit to/from Stand: 6 Sit to Stand (QC): 6 Weight Bearing Right Lower Extremity: Right Weight Bearing/Tolerated Left Lower Extremity: Left Weight Bearing/Tolerated Gait Training Does the Patient Walk?: Yes Distance (FIM): 3=150 ft Distance: 150' Walk 10 feet (QC): 6 Walk 50 ft with 2 Turns(QC): 6 Walk 150 ft (QC): 6 Gait Level of Assist: 6 Gait Persons Needed: 1 Gait Assistive Device: FWW Wheelchair Training Does the Pt Use a Wheelchair?: No Exercises Standing: Hamstring curls, Heel/toe raises, 3 way Ex=Flex, Abd, Ext (10 reps) Standing Reps: 15 Treatments Pt transfers from bed to standing and ambulates using FWW in hallway. Pt completes Standing Ex at //bars followed by RB. Pt returns to room to use restroom then rests in bed with all needs met. Assessment Current Status: Good Progress Pt tolerates tx well but is fatigued upon return to room. PT Short Term Goals Short Term Goals Time Frame: August 12, 2018 Transfers (B,C,W/C) (FIM): 6 Gait (FIM): 6 Gait Distance Comment: 150' Gait Level of Assist: 6 Gait Assistive Device: FWW PT Fpc Goals Photo Tube Assembler Goals PT Photo Tube Assembler Goals Time Frame: August 26, 2018 Transfers (B,C,W/C) (FIM): 6 Sit to Lying (QC): 6 Lying-Sitting on Side/Bed(QC): 6 Sit to Stand (QC): 6 Rollin Roll Left to Right (QC): 6 Chair/Ipl-km-Gblbq Xfer(QC): 6 Car Transfer (QC): 6 Gait (FIM): 6 Distance: 300' Walk 10 feet (QC): 6 Walk 10ft-Uneven Surface(QC): 6 Walk 50ft with 2 Turns (QC): 6 Walk 150 ft (QC): 6 Gait Level of Assist: 6 Gait Assistive Device: FWW Stairs (FIM): 2 # of Steps: 4 1 Step (curb) (QC): 4 4 Steps (QC): 4 Stairs Level Of Assist: 5 PT Plan Problem List Problem List: Activity Tolerance, Functional Strength Treatment/Plan Treatment Plan: Continue Plan of Care Treatment Plan: Bed Mobility, Education, Functional Activity Lorena, Functional Strength, Group Therapy, Gait, Safety, Therapeutic Exercise, Transfers Treatment Duration: August 26, 2018 Frequency: At least 5 of 7 days/Wk (IRF) Estimated Hrs Per Day: 1.5 hours per day Patient and/or Family Agrees t: Yes Safety Risks/Education Patient Education: Gait Training, Transfer Techniques, Correct Positioning, Safety Issues Teaching Recipient: Patient Teaching Methods: Discussion Response to Teaching: Verbalize Understanding Time/GCodes Time In: 1330 Time Out: 1400 Total Billed Treatment Time: 30 Total Billed Treatment 1, EX (15m) & GT (15m) G Codes Necessary: NIDHI Carey PLATE PUT IN WORKER August 07, 2018 15:25
--- NOTE | 2018-08-07 15:51 | NUR ---
Behavioral Health notified of consult. Lucia Yanez will see patient tomorrow (05/11/18) between 2&3 PM.
[2018-08-07 16:02] VITALS: BP 103/65
[2018-08-07] MEDS: ATORVASTATIN 40 MG (LIPITOR) TABLET PO SCH (20:34)
[2018-08-07] MEDS: CALCIUM CARBONATE 600 MG (CALCARB) TAB PO SCH (20:34)
[2018-08-08] MEDS: MELATONIN 3 MG TABLET PO PRN (01:07)
[2018-08-08] MEDS: ceFAZolin 1,000 MG/SWFI 10 ML IV PUSH IV SCH ×6 (05:53→21:03)
[2018-08-08] MEDS: PANTOPRAZOLE 40 MG (PROTONIX) TAB PO SCH (05:53)
[2018-08-08 05:55] VITALS: BP 121/80
[2018-08-08] MEDS: ASCORBIC ACID (VIT C) 500 MG TABLET PO SCH (06:02)
[2018-08-08 06:34] LABS: BASOPHILS % (AUTO) 0 % (0-10); EOSINOPHILS # (AUTO) 0.4 10^3/uL (0.0-0.3); EOSINOPHILS % (AUTO) 4 % (0-10); HEMATOCRIT 33 % (35-52); HEMOGLOBIN 10.4 G/DL (11.5-16.0); LYMPHOCYTES # (AUTO) 3.6 X 10^3 (1.0-4.0); LYMPHOCYTES % (AUTO) 43 % (12-44); MEAN CORPUSCULAR HEMOGLOBIN 29 PG (25-34); MEAN CORPUSCULAR HGB CONC 32 G/DL (32-36); MEAN CORPUSCULAR VOLUME 90 FL (80-99); MEAN PLATELET VOLUME 9.6 FL (7.4-10.4); MONOCYTES # (AUTO) 0.6 X 10^3 (0.0-1.0); MONOCYTES % (AUTO) 7 % (0-12); NEUTROPHILS # (AUTO) 3.8 X 10^3 (1.8-7.8); NEUTROPHILS % (AUTO) 45 % (42-75); PLATELET COUNT 399 10^3/uL (130-400); RED CELL DISTRIBUTION WIDTH 17.6 % (10.0-14.5); WHITE BLOOD COUNT 8.3 10^3/uL (4.3-11.0)
[2018-08-08 07:02] LABS: ALANINE AMINOTRANSFERASE 19 U/L (0-55); ALBUMIN 3.2 GM/DL (3.2-4.5); ALKALINE PHOSPHATASE 140 U/L (40-136); BILIRUBIN,TOTAL 0.3 MG/DL (0.1-1.0); BUN/CREATININE RATIO 12; CALCIUM 8.8 MG/DL (8.5-10.1); CARBON DIOXIDE 21 MMOL/L (21-32); CHLORIDE 108 MMOL/L (98-107); CREATININE SERUM 0.81 MG/DL (0.60-1.30); GFR ESTIMATED > 60; GLUCOSE 95 MG/DL (70-105); POTASSIUM 3.9 MMOL/L (3.6-5.0); SODIUM 141 MMOL/L (135-145)
[2018-08-08] MEDS: HYDROcodone/APAP 7.5 MG/325 MG (LORTAB, LORCET PLUS) TABLET PO PRN ×3 (07:23→20:37)
--- NOTE | 2018-08-08 08:43 | PM&R Progress Note ---
Subjective HPI/CC On Admission Date Seen by Provider: August 08, 2018 Time Seen by Provider: 08:30 CC: Bilateral hip surgical incisions abscess with cellulitis and subsequent debility HPI: This is a 52-year-old white female clinic patient of Dr. Coelho in [facility] who is known to me from prior surgeries at [facility] by Dr. Méndez who presented to inpatient rehab unit at [facility] due to severe debility following bilateral hip incision abscesses and cellulitis in need of 6 weeks of IV antibiotics of Ancef 500 mg IV every 8 hours after a PICC line placement in addition to severe debility following severe postoperative anemia due to acute blood loss with subsequent hemoglobin of 5.4 requiring 4 units of blood last week. She was placed on broad-spectrum antibiotics and culture revealed E. coli pansensitive so she will continue the IV antibiotics until completed and will participate in all therapies to strengthen in order to return back home independently after wound vacs are discontinued. Dr. Cantu is gracious enough to monitor the wound vacs while she is hospitalized at [facility] along with the wound care team. I checked her home medications , current hospital meds from [facility] and review my previous consultation. She was living independently alone without difficulty or use of assistive devices and will return back home with modified independent activities of daily living along with ambulation since she lives alone. Subjective/Events-last exam Patient doing much better and progressing with PT Wound vacs maintained Ambulating well Still very impulsive so alarms are in place Fall risk remains and therapists eligibility counselor and educate Denies any significant pain issues Overall using incentive spirometer as ordered Conferred with RN Reviewed therapy notes Bowels are moving Labs reviewed Psych consult today at 1400 Review of Systems General: Fatigue Musculoskeletal: leg pain Objective Exam Vital Signs Vital Signs Date Time Temp Pulse Resp B/P (MAP) Pulse Ox O2 Delivery O2 Flow Rate FiO2 08/08/18 05:55 98.4 88 20 121/80 (94) 94 Room Air Capillary Refill : Less Than 3 Seconds General Appearance: No Apparent Distress, WD/WN, Chronically ill HEENT: PERRL/EOMI, TMs Normal, Normal ENT Inspection, Pharynx Normal, Moist Mucous Membranes Neck: Full Range of Motion, Normal Inspection, Non Tender, Supple Respiratory: Chest Non Tender, Lungs Clear, Normal Breath Sounds, No Accessory Muscle Use, No Respiratory Distress Cardiovascular: Regular Rate, Rhythm, No Edema, No Gallop, No JVD, No Murmur Gastrointestinal: Normal Bowel Sounds, No Organomegaly, No Pulsatile Mass, Non Tender, Soft Back: Normal Inspection, No CVA Tenderness, No Vertebral Tenderness Extremity: Normal Capillary Refill, Normal Inspection, Normal Range of Motion, Non Tender, No Calf Tenderness, No Pedal Edema Neurologic/Psychiatric: Alert, Oriented x3, Normal Mood/Affect, Motor Weakness (weakness lower legs 4/[address] bilateral thighs) Skin: Normal Color, Warm/Dry Lymphatic: No Adenopathy Results/Procedures Lab Laboratory Tests 08/08/18 06:20 Patient resulted labs reviewed. FIM Transfers Therapy Code Descriptions/Definitions Functional [place] Measure: 0=Not Assessed/NA 4=Minimal Assistance 1=Total Assistance 5=Supervision or Setup 2=Maximal Assistance 6=Modified [place] 3=Moderate Assistance 7=Complete [place] Therapy Quality Codes: 6 Independent with activity with or without an assistive device 5 Patient requires set up or clean up by helper. Patient completes activity by themselves 4 Supervision or touching assist (CGA). [place] provide cues , steadying assist 3 The helper provides less than half the effort to complete the activity 2 The helper provides more than half the effort to complete the activity 1 Dependent. The helper does all the effort to complete an activity 7 Patient refused to complete or attempt activity 9 The patient did not perform the activity before the current illness or injury 88 Not attempted due to Medical conditions or safety concerns Mental Status/Objective Comprehension: 7 Expression: 7 Social Interaction: 7 Problem Solvin Memory: 7 ADL-Treatment Feedin (dentures) Eating (QC): 6 Groomin (supervision for safety/ balance while standing at sink. noted limited activity tolerance required seated rest breaks ) Oral Hygiene (QC): 4 Bathin (standing/ sitting at sinkside. shower not completed secodnary to wound vac) Bathing Location: L Arm, R Arm, L Upper Leg, R Upper Leg, L Lower Leg ( including foot), R Lower Leg (including foot), Chest, Abdomen, Buttocks, Perineal Area Shower/Bathe Self (QC): 4 Upper Extremity Dressin Upper Body Dressing (QC): 4 Lower Extremity Dressin (pt demo ability to abigail maye shoes and pants with SBA for safety/ balance ) Lower Body Dressing (QC): 4 On/Off Footwear (QC): 4 Toiletin (complete 3/3 toiletin tasks with SBA for safety. balance and mangement of wound vac) Toileting Hygiene (QC): 4 Toilet/Commode Transfer: 5 Toilet Transfer (QC): 5 (SBA for safety/ balance ) Shower: 0 (not completed secondary to wound vac) Assessment/Plan Assessment and Plan Assess & Plan/Chief Complaint Assessment: Bilateral hip incision abscesses with wound vacs in place and needs 6 weeks of abx with PICC line placement Debility Post op anemia hgb 5.4 s/p 4 units of blood last week now 10 but low iron placing on iron infusions OA HLP TBI Depression Anxiety Constipation x 7 days now resolved Plan: BM regimen aggressive type to maintain to prevent recurrent constipation Iron infusions Monitor pain PT/OT Home meds GERD Tx (1) Incisional abscess (2) Constipation (3) Anxiety (4) Depression (5) Hyperlipidemia (6) Osteoarthritis (7) GERD (gastroesophageal reflux disease) (8) TBI (traumatic brain injury) (9) Postoperative anemia (10) Transfusion history (11) Status post hip replacement (12) Former smoker (13) Iron deficiency INGA MORFIN DO August 08, 2018 08:43
[2018-08-08] MEDS: POLYETHYLENE GLYCOL 17 GM (MIRALAX) PACK PO SCH ×2 (09:02→20:29)
[2018-08-08] MEDS: LACTULOSE SYRUP 10GM/15ML (ENULOSE) 30ML UDC PO SCH ×2 (09:03→20:29)
[2018-08-08] MEDS: SENNA W/DOCUSATE (SENOKOT S) TABLET PO SCH ×2 (09:03→20:29)
[2018-08-08] MEDS: BISACODYL 10 MG SUPP (DULCOLAX) PR SCH ×2 (09:03→20:29)
[2018-08-08] MEDS: clonazePAM 0.5 MG (KlonoPIN) TAB PO SCH ×3 (09:04→20:28)
[2018-08-08] MEDS: ASPIRIN E.C. 81 MG (ECOTRIN) TAB PO SCH (09:04)
[2018-08-08] MEDS: FLUoxetine HCL 20 MG (PROzac) CAP PO SCH (09:04)
[2018-08-08] MEDS: GABAPENTIN 600 MG (NEURONTIN) TAB PO SCH ×3 (09:04→20:28)
[2018-08-08] MEDS: MELOXICAM 7.5 MG (MOBIC) TABLET PO SCH ×2 (09:04→20:28)
--- NOTE | 2018-08-08 10:19 | Occupational Ther Daily Note ---
OT Current Status-Daily Note Subjective pt sitting in recliner chair upon OT arrival in no apparent distress. pt agreed to skilled OT TX session with focus on increasing activity tolerance, UE strength, and standing tolerance for daily activities. Mental Status/Objective Patient Orientation: Normal For Age Therapy Code Descriptions/Definitions Functional [place] Measure: 0=Not Assessed/NA 4=Minimal Assistance 1=Total Assistance 5=Supervision or Setup 2=Maximal Assistance 6=Modified [place] 3=Moderate Assistance 7=Complete [place] LE wound vac ADL-Treatment Therapy Code Descriptions/Definitions Functional [place] Measure: 0=Not Assessed/NA 4=Minimal Assistance 1=Total Assistance 5=Supervision or Setup 2=Maximal Assistance 6=Modified [place] 3=Moderate Assistance 7=Complete [place] Therapy Quality Codes: 6 Independent with activity with or without an assistive device 5 Patient requires set up or clean up by helper. Patient completes activity by themselves 4 Supervision or touching assist (CGA). [place] provide cues , steadying assist 3 The helper provides less than half the effort to complete the activity 2 The helper provides more than half the effort to complete the activity 1 Dependent. The helper does all the effort to complete an activity 7 Patient refused to complete or attempt activity 9 The patient did not perform the activity before the current illness or injury 88 Not attempted due to Medical conditions or safety concerns Other Treatment pt demo ability to perform functional mobility approx 75 ft from room to TX gym once in gym pt perform UBE 15 minutes with MOD resistance with 1 rest breaks at 8 minutes for 30 seconds. pt then demo ability to maintain static standing balance participating in WII game against peer with CGA for safety/ balance. pt demo ability to maintain standing balance for 12 minutes 50seconds then required seated rest break pt education on signs/ symptoms of fatigue. pt verbalized understanding.pt education on HEP using 3 LB weights. handout provided. pt performed 15X2 shoulder flex/ ext/ ADD/ ABD, 15X2 elbow flex/ ext, 15 X2 wrist flex/ ext. with 1 minutes rest break between sets. Education OT Patient Education: Energy conservation, Home exercise program (UE weights), Progress toward Goal/Update tx plan, Purpose of tx/functional activities Teaching Recipient: Patient Teaching Methods: Demonstration, Discussion Response to Teaching: Verbalize Understanding, Return Demonstration OT Short Term Goals Short Term Goals Transfers (B,C,W/C) (FIM): 6 1=Demonstrate adherence to instructed precautions during ADL tasks. 2=Patient will verbalize/demonstrate understanding of assistive devices/ modifications for ADL. 3=Patient will improve strength/tolerance for activity to enable patient to perform ADL's. OT Head Of Housekeeping Goals Head Of Housekeeping Goals Time Frame: August 26, 2018 Eating (FIM): 6 Eating (QC): 6 Groomin Oral Hygiene (QC): 6 Bathing(FIM): 6 Shower/Bathe Self (QC): 6 Upper Body Dressing(FIM): 6 Upper Body Dressing (QC): 6 Lower Body Dressing(FIM): 6 Lower Body Dressing (QC): 6 On/Off Footwear (QC): 6 Toileting(FIM): 6 Toileting Hygiene (QC): 6 Toilet/Commode Transfer(FIM): 6 Toilet/Commode Transfer (QC): 6 Shower Transfer(FIM): 6 Additional Goals: 1-Demonstrate ADL Tasks, 2-Verbalize Understanding, 3- ImproveStrength/Lorena 1=Demonstrate adherence to instructed precautions during ADL tasks. 2=Patient will verbalize/demonstrate understanding of assistive devices/ modifications for ADL. 3=Patient will improve strength/tolerance for activity to enable patient to perform ADL's. OT Education/Plan Problem List/Assessment Assessment: Decreased Activ Tolerance, Decreased UE Strength, Impaired Funct Balance, Impaired I ADL's, Impaired Self-Care Skills Discharge Recommendations Plan/Recommendations: Continue POC Treatment Plan/Plan of Care Treatment,Training & Education: Yes Patient would benefit from OT for education, treatment and training to promote independence in ADL's, mobility, safety and/or upper extremity function for ADL' s. Plan of Care: ADL Retraining, Functional Mobility, Group Exercise/Act as Ind, UE Funct Exercise/Act Treatment Duration: August 26, 2018 Frequency: At least 5 of 7 days/Wk (IRF) Estimated Hrs Per Day: 1.5 hours per day Rehab Potential: Fair Time/GCodes Start Time: 08:00 Stop Time: 09:30 Billed Treatment Time FA 60 minutes, 4 units EX 30 minutes, 2 units RUDDY JO OT August 08, 2018 10:19
--- NOTE | 2018-08-08 11:31 | Physical Therapy Daily Note ---
PT Daily Note-Current Subjective Pt sitting in chair in Therapy Gym resting, after just finishing OT tx. Pain Numeric Pain Scale: 6 Location: Left Location Body Site: Hip Pain Description: Ache, Tightness Mental Status Patient Orientation: Person, Place, Time, Situation Attachments: Other-See Comments (Wound Vac.) Transfers Therapy Code Descriptions/Definitions Functional [place] Measure: 0=Not Assessed/NA 4=Minimal Assistance 1=Total Assistance 5=Supervision or Setup 2=Maximal Assistance 6=Modified [place] 3=Moderate Assistance 7=Complete [place] Therapy Quality Codes: 6 Independent with activity with or without an assistive device 5 Patient requires set up or clean up by helper. Patient completes activity by themselves 4 Supervision or touching assist (CGA). [place] provide cues , steadying assist 3 The helper provides less than half the effort to complete the activity 2 The helper provides more than half the effort to complete the activity 1 Dependent. The helper does all the effort to complete an activity 7 Patient refused to complete or attempt activity 9 The patient did not perform the activity before the current illness or injury 88 Not attempted due to Medical conditions or safety concerns Scootin Supine to/from Sit: 6 Sit to/from Stand: 6 Sit to Lying (QC): 6 Sit to Stand (QC): 6 Weight Bearing Right Lower Extremity: Right Weight Bearing/Tolerated Left Lower Extremity: Left Weight Bearing/Tolerated Gait Training Does the Patient Walk?: Yes Distance (FIM): 3=150 ft Distance: 150' Walk 10 feet (QC): 6 Walk 50 ft with 2 Turns(QC): 6 Walk 150 ft (QC): 6 Gait Level of Assist: 6 Gait Persons Needed: 1 Gait Assistive Device: FWW Pt walks with slight antalgic gait due to pushing self during tx. Wheelchair Training Does the Pt Use a Wheelchair?: No Exercises Supine Ex: Ankle pumps, Quad Set, Glut sets, Heel Slides, Straight leg raise, Hip abd/add Supine Reps: 20 Seated Therapy Exercises: Glut set Seated Reps: 20 Standing: Hamstring curls, Heel/toe raises, 3 way Ex=Flex, Abd, Ext (5 on each side), Marching, Mini squats, Sit to Stand, Weight shifts Standing Reps: 15 Ex is completed w/in Hip Precaution Guidelines. NuStep Minutes: 11 NuStep Workload: 4 Treatments Pt completes Supine Ex on mat with RB as needed due to fatigue and discomfort. Pt uses NuStep for 10-11m at WL 4. Pt completes Seated & Standing EX at //bars with RB as needed. Pt ambulates in hallway back to room to use restroom before resting in bed at end of tx. Pt has all needs met. Assessment Current Status: Good Progress Pain limits some ROM and participation in some activities. Pt is motivated to improve and D/C though. PT Short Term Goals Short Term Goals Time Frame: August 12, 2018 Transfers (B,C,W/C) (FIM): 6 Gait (FIM): 6 Gait Distance Comment: 150' Gait Level of Assist: 6 Gait Assistive Device: FWW PT Intermediate Goals Intermediate Goals PT Margin Analyst Goals Time Frame: August 26, 2018 Transfers (B,C,W/C) (FIM): 6 Sit to Lying (QC): 6 Lying-Sitting on Side/Bed(QC): 6 Sit to Stand (QC): 6 Rollin Roll Left to Right (QC): 6 Chair/Bqm-gr-Wpolq Xfer(QC): 6 Car Transfer (QC): 6 Gait (FIM): 6 Distance: 300' Walk 10 feet (QC): 6 Walk 10ft-Uneven Surface(QC): 6 Walk 50ft with 2 Turns (QC): 6 Walk 150 ft (QC): 6 Gait Level of Assist: 6 Gait Assistive Device: FWW Stairs (FIM): 2 # of Steps: 4 1 Step (curb) (QC): 4 4 Steps (QC): 4 Stairs Level Of Assist: 5 PT Plan Problem List Problem List: Activity Tolerance, Functional Strength, Gait Treatment/Plan Treatment Plan: Continue Plan of Care Treatment Plan: Bed Mobility, Education, Functional Activity Lorena, Functional Strength, Group Therapy, Gait, Safety, Therapeutic Exercise, Transfers Treatment Duration: August 26, 2018 Frequency: At least 5 of 7 days/Wk (IRF) Estimated Hrs Per Day: 1.5 hours per day Patient and/or Family Agrees t: Yes Safety Risks/Education Patient Education: Gait Training, Transfer Techniques, Reviewed Precautions, Correct Positioning, Safety Issues Teaching Recipient: Patient Teaching Methods: Discussion Response to Teaching: Verbalize Understanding Time/GCodes Time In: 930 Time Out: 1100 Total Billed Treatment Time: 90 Total Billed Treatment 1, GT (20m), FA x2 (25m) & EX x3 (45m) G Codes Necessary: NIDHI Carey SOFTWARE PROGRAM MANAGER August 08, 2018 11:30
--- NOTE | 2018-08-08 15:06 | Behavioral Health Consult ---
Consult- Consult Date Seen by Provider: August 08, 2018 Time Seen by Provider: 13:50 Patient: Imani Linda : 1965 Date: 08/07/2018 Referral: Dr. Healy CPT Code: 33705 Psychodiagnostic Examination and 53047 Interactive Complexity, 1 unit(s) Start Time: 1350 Stop Time: 1510 Chief Complaint: Child-like behaviors, screaming out Referral: Imani Linda is a 52 year old female referred by Dr. Healy for a clinical diagnostic assessment. Information sources for this evaluation include self-report/observation, nursing staff, psych social worker and medical records. Presenting Problem: The presenting clinical problem is Child-like behaviors, screaming out. Duration of the current problem was indeterminate given the available information. The primary clinical theme and problem discussed during the appointment was that Imani shared that she has a history of depression and anxiety and has been on medication for these. She has not had any counseling in the past. She does feel that her depression is situational with several of the past years being very stressful for her. Most of this was due to medical problems and multiple surgeries and seeking disability. She was not observed having any inappropriate behaviors during her assessment. Imani does display a hyperactive mood/personality. She was questioned about the reported behaviors and denied engaging in any child-like behavior or screaming. Imani does have a reported history of traumatic brain injury. There were no observations of any cognitive deficits related to TBI. Her personality style may display a quirky attitude when trying to cope with difficult situations, but she is not incapable of cognitive functioning. She is able to follow directions and cooperate with her treatment plan. Angelica displayed a positive mood toward her treatment and was hopeful that she is improving and getting better every day. She was encouraged to verbalize any frustrations or lack of coping with staff so they can assist her appropriately. Observations/Mental Status: Imani came to the appointment alone. Overall appearance was appropriate and indicated adequate self-care. The patient was a good historian. Nic general approach to the evaluation indicated interest. Orientation was intact for person, place, time, and situation. Imani evidenced good understanding of the reason for the appointment. The predominant mood was that of euthymic with affect appropriate to expressed concerns and presenting problem. Immediate attention and concentration was unremarkable clinically during the interview. Level of intellectual functioning compared to same age peers was average range. Thought processes were found to be generally logical, coherent and goal directed. Thought content appeared normal. Psychomotor functioning was within normal limits. Tone of voice was normal and controlled and manner of speech was normal. Expressive speech was marked by fluent speech and language. Current destructive behavior patterns: none reported or indicated. Disturbance in sleep patterns: not assessed. Eye contact was good. Insight was average. Nic style of interacting during the appointment was appropriate and motivated. Current/Previous Mental Health Treatment: Past psychiatric history: previous and current medication management including Prozac, Abilify and Clonazepam. History of self or other harm: denied. History of abuse: denied. Summary of Assessment Information/Prognosis: Nic presenting problem and symptoms appear consistent with a preliminary diagnosis of F33.2 Major Depressive Disorder, Recurrent, Severe without Psychotic Features at this point. Current emotional symptoms are of moderate intensity. Prognosis is good. Diagnostic Impressions: ICD-10: F33.2 Major Depressive Disorder, Recurrent, Severe without Psychotic Features Initial Treatment Plan/Recommendations: The recommendations at this time include the following: Continue with medication management and rehabilitation treatment goals. Imani verbalized understanding of these recommendations and an intention to comply. FANY DAY August 08, 2018 15:06
--- NOTE | 2018-08-08 15:46 | NUR ---
Imani is a 52 yo female present on the ARU unit with bilateral total hip replacements with placements of wound vac bilaterally. Patient is alert and orientated X4 and reports occasional pain in bilateral hips but is controlled by oral pain medications. Patient currently has a single lumen PICC line present in the LUE that demonstrates great blood return and flush. Today a behavioral health consults was completed and no acute findings were reported. This nurse will continue to monitor the patient at this time.
[2018-08-08 17:03] VITALS: BP 116/78
[2018-08-08] MEDS: CALCIUM CARBONATE 600 MG (CALCARB) TAB PO SCH (20:28)
[2018-08-08] MEDS: ATORVASTATIN 40 MG (LIPITOR) TABLET PO SCH (20:28)
[2018-08-09] MEDS: HYDROcodone/APAP 7.5 MG/325 MG (LORTAB, LORCET PLUS) TABLET PO PRN ×4 (03:44→21:21)
[2018-08-09 05:04] VITALS: BP 127/85
[2018-08-09] MEDS: ASCORBIC ACID (VIT C) 500 MG TABLET PO SCH (06:06)
[2018-08-09] MEDS: PANTOPRAZOLE 40 MG (PROTONIX) TAB PO SCH (06:06)
[2018-08-09] MEDS: ceFAZolin 1,000 MG/SWFI 10 ML IV PUSH IV SCH ×6 (06:07→21:22)
[2018-08-09] MEDS: SENNA W/DOCUSATE (SENOKOT S) TABLET PO SCH ×2 (08:10→21:22)
[2018-08-09] MEDS: GABAPENTIN 600 MG (NEURONTIN) TAB PO SCH ×3 (08:10→21:21)
[2018-08-09] MEDS: clonazePAM 0.5 MG (KlonoPIN) TAB PO SCH ×3 (08:10→21:21)
[2018-08-09] MEDS: ASPIRIN E.C. 81 MG (ECOTRIN) TAB PO SCH (08:10)
[2018-08-09] MEDS: FLUoxetine HCL 20 MG (PROzac) CAP PO SCH (08:10)
[2018-08-09] MEDS: MELOXICAM 7.5 MG (MOBIC) TABLET PO SCH ×2 (08:10→21:22)
[2018-08-09] MEDS: LACTULOSE SYRUP 10GM/15ML (ENULOSE) 30ML UDC PO SCH ×2 (09:00→21:23)
[2018-08-09] MEDS: POLYETHYLENE GLYCOL 17 GM (MIRALAX) PACK PO SCH ×2 (09:00→21:22)
[2018-08-09] MEDS: BISACODYL 10 MG SUPP (DULCOLAX) PR SCH ×2 (09:00→21:22)
[2018-08-09] MEDS: IRON SUCROSE 200 MG/10 ML (VENOFER) VIAL IV SCH (09:31)
--- NOTE | 2018-08-09 11:01 | Occupational Ther Daily Note ---
OT Current Status-Daily Note Subjective Pt alert and agreeable to participate with OT services. Pt complaining of mild pain this date through bilateral hip regions. Mental Status/Objective Therapy Code Descriptions/Definitions Functional [place] Measure: 0=Not Assessed/NA 4=Minimal Assistance 1=Total Assistance 5=Supervision or Setup 2=Maximal Assistance 6=Modified [place] 3=Moderate Assistance 7=Complete [place] ADL-Treatment Therapy Code Descriptions/Definitions Functional [place] Measure: 0=Not Assessed/NA 4=Minimal Assistance 1=Total Assistance 5=Supervision or Setup 2=Maximal Assistance 6=Modified [place] 3=Moderate Assistance 7=Complete [place] Therapy Quality Codes: 6 Independent with activity with or without an assistive device 5 Patient requires set up or clean up by helper. Patient completes activity by themselves 4 Supervision or touching assist (CGA). [place] provide cues , steadying assist 3 The helper provides less than half the effort to complete the activity 2 The helper provides more than half the effort to complete the activity 1 Dependent. The helper does all the effort to complete an activity 7 Patient refused to complete or attempt activity 9 The patient did not perform the activity before the current illness or injury 88 Not attempted due to Medical conditions or safety concerns Grooming (FIM): 5 (Pt performed grooming/hygiene tasks while seated in chair with setup. ) Bathing (FIM): 5 (Pt performed sponge bath with setup while seated in chair. ) Bathing Location: L Arm, R Arm, L Upper Leg, R Upper Leg, L Lower Leg ( including foot), R Lower Leg (including foot), Chest, Abdomen, Buttocks, Perineal Area Upper Body (FIM): 5 (UBD performed with setup ) Lower Body Dressing (FIM): 5 (LBD performed with setup and compensatory techniques. ) Transfers (B, C, W/C) (FIM): 5 (Pt performed functional transfers during ADLs with SBA. ) Other Treatment Pt participated in BUE ther ex with use of 2 and 3# free weights through gross UE planes of motion in order to improve her strength and muscle endurance necessary for ADLs. Pt participated in therapeutic activities to address sit to stand, functional transfer training and functional activity tolerance training to increase her stamina and independence with basic functional transfers. OT Short Term Goals Short Term Goals Transfers (B,C,W/C) (FIM): 6 1=Demonstrate adherence to instructed precautions during ADL tasks. 2=Patient will verbalize/demonstrate understanding of assistive devices/ modifications for ADL. 3=Patient will improve strength/tolerance for activity to enable patient to perform ADL's. OT Fruit Checker Goals Longterm Goals Time Frame: August 26, 2018 Eating (FIM): 6 Eating (QC): 6 Groomin Oral Hygiene (QC): 6 Bathing(FIM): 6 Shower/Bathe Self (QC): 6 Upper Body Dressing(FIM): 6 Upper Body Dressing (QC): 6 Lower Body Dressing(FIM): 6 Lower Body Dressing (QC): 6 On/Off Footwear (QC): 6 Toileting(FIM): 6 Toileting Hygiene (QC): 6 Toilet/Commode Transfer(FIM): 6 Toilet/Commode Transfer (QC): 6 Shower Transfer(FIM): 6 Additional Goals: 1-Demonstrate ADL Tasks, 2-Verbalize Understanding, 3- ImproveStrength/[place] 1=Demonstrate adherence to instructed precautions during ADL tasks. 2=Patient will verbalize/demonstrate understanding of assistive devices/ modifications for ADL. 3=Patient will improve strength/tolerance for activity to enable patient to perform ADL's. OT Education/Plan Discharge Recommendations Plan/Recommendations: Continue POC Treatment Plan/Plan of Care Patient would benefit from OT for education, treatment and training to promote independence in ADL's, mobility, safety and/or upper extremity function for ADL' s. Plan of Care: Functional Mobility, Group Exercise/Act as Ind, UE Funct Exercise /Act Treatment Duration: August 26, 2018 Frequency: At least 5 of 7 days/Wk (IRF) Estimated Hrs Per Day: 1.5 hours per day Rehab Potential: Fair Time/GCodes Start Time: 09:30 Stop Time: 11:00 Total Time Billed (hr/min): 90 Billed Treatment Time 1, ADL3, TE2, TA2 MITCHEL GOLDSMITH OT August 09, 2018 11:01
--- NOTE | 2018-08-09 11:04 | Physical Therapy Daily Note ---
PT Daily Note-Current Subjective Agrees to PT. Reports she feels she is getting stronger. Mental Status Patient Orientation: Person, Place, Time, Situation Transfers Therapy Code Descriptions/Definitions Functional [place] Measure: 0=Not Assessed/NA 4=Minimal Assistance 1=Total Assistance 5=Supervision or Setup 2=Maximal Assistance 6=Modified [place] 3=Moderate Assistance 7=Complete [place] Therapy Quality Codes: 6 Independent with activity with or without an assistive device 5 Patient requires set up or clean up by helper. Patient completes activity by themselves 4 Supervision or touching assist (CGA). [place] provide cues , steadying assist 3 The helper provides less than half the effort to complete the activity 2 The helper provides more than half the effort to complete the activity 1 Dependent. The helper does all the effort to complete an activity 7 Patient refused to complete or attempt activity 9 The patient did not perform the activity before the current illness or injury 88 Not attempted due to Medical conditions or safety concerns Transfers (B, C, W/C) (FIM): 5 Scootin Supine to/from Sit: 5 Sit to/from Stand: 5 SBA with all transfers; sit to from supine multiple times and sit to from stand multiple times throughout treatment. Weight Bearing Right Lower Extremity: Right Weight Bearing/Tolerated Left Lower Extremity: Left Weight Bearing/Tolerated Gait Training Does the Patient Walk?: Yes Gait (FIM): 5 Gait Assistive Device: FWW Pt walked 250 ft x 5 reps with FWW with SBA. Worked on safety with use of walker and foot placement during gait. Stair Training Stair Training: Handrails/: 2 handrails Stairs (FIM): 2 Stairs: Pattern: Step to up/down 4 steps x 3 reps to promote LE strength and functional mobility on stairs for community mobility. Exercises Supine Ex: Bridging, Ankle pumps, Quad Set, Heel Slides, Short Arc Quads, Hip abd/add Supine Reps: 15 (to promte LE strength for improved transfers and gait) Seated Therapy Exercises: Ankle pumps, Sit to stand, Long arc quads, Hamstring Curls, Hip abd/add (15) Seated Reps: 15 (LE strength for improved sit to stand transfers. ) Treatments functional gait, transfer and strength training to promote indep mobility. Assessment Current Status: Good Progress Transfers improving. Gait tolerance improving. Safety continues to progress as well. Pt is making progress towards established goals. PT Short Term Goals Short Term Goals Time Frame: August 12, 2018 Transfers (B,C,W/C) (FIM): 6 Gait (FIM): 6 Gait Distance Comment: 150' Gait Level of Assist: 6 Gait Assistive Device: FWW PT Medical Physiologist Goals Long-Term Goals PT Medical Physiologist Goals Time Frame: August 26, 2018 Transfers (B,C,W/C) (FIM): 6 Sit to Lying (QC): 6 Lying-Sitting on Side/Bed(QC): 6 Sit to Stand (QC): 6 Rollin Roll Left to Right (QC): 6 Chair/[id number]-Ohbtq Xfer(QC): 6 Car Transfer (QC): 6 Gait (FIM): 6 Distance: 300' Walk 10 feet (QC): 6 Walk 10ft-Uneven Surface(QC): 6 Walk 50ft with 2 Turns (QC): 6 Walk 150 ft (QC): 6 Gait Level of Assist: 6 Gait Assistive Device: FWW Stairs (FIM): 2 # of Steps: 4 1 Step (curb) (QC): 4 4 Steps (QC): 4 Stairs Level Of Assist: 5 PT Plan Problem List Problem List: Activity Tolerance, Functional Strength, Safety, Balance, Gait, Transfer, Bed Mobility Treatment/Plan Treatment Plan: Continue Plan of Care Treatment Plan: Bed Mobility, Education, Functional Activity [place], Functional Strength, Group Therapy, Gait, Safety, Therapeutic Exercise, Transfers Treatment Duration: August 26, 2018 Frequency: At least 5 of 7 days/Wk (IRF) Estimated Hrs Per Day: 1.5 hours per day Patient and/or Family Agrees t: Yes Safety Risks/Education Patient Education: Safety Issues Teaching Recipient: Patient Teaching Methods: Discussion Response to Teaching: Verbalize Understanding Time/GCodes Time In: 735 Time Out: 835 Total Billed Treatment Time: 60 Total Billed Treatment visit EX 45 GT 15 GALDINO NGUYEN PT August 09, 2018 11:04
--- NOTE | 2018-08-09 11:07 | Physical Therapy Daily Note ---
PT Daily Note-Current Subjective Agrees. Transfers Therapy Code Descriptions/Definitions Functional [place] Measure: 0=Not Assessed/NA 4=Minimal Assistance 1=Total Assistance 5=Supervision or Setup 2=Maximal Assistance 6=Modified [place] 3=Moderate Assistance 7=Complete [place] Therapy Quality Codes: 6 Independent with activity with or without an assistive device 5 Patient requires set up or clean up by helper. Patient completes activity by themselves 4 Supervision or touching assist (CGA). [place] provide cues , steadying assist 3 The helper provides less than half the effort to complete the activity 2 The helper provides more than half the effort to complete the activity 1 Dependent. The helper does all the effort to complete an activity 7 Patient refused to complete or attempt activity 9 The patient did not perform the activity before the current illness or injury 88 Not attempted due to Medical conditions or safety concerns Weight Bearing Right Lower Extremity: Right Weight Bearing/Tolerated Left Lower Extremity: Left Weight Bearing/Tolerated Treatments Treatment consisted of high level balance activities in standing unsupported. Pt played catch with a soft large ball to address core and hip stability and balance in standing with balance pertebation to throw and catch a ball. Participated in 3 bouts of ball toss. pt required CGA for balance throughout. Pt in room post treatment with needs met. Assessment Current Status: Good Progress No phi LOB episodes noted. PT Short Term Goals Short Term Goals Time Frame: August 12, 2018 Transfers (B,C,W/C) (FIM): 6 Gait (FIM): 6 Gait Distance Comment: 150' Gait Level of Assist: 6 Gait Assistive Device: FWW PT Group Home Goals Group Home Goals PT Airplane Captain Goals Time Frame: August 26, 2018 Transfers (B,C,W/C) (FIM): 6 Sit to Lying (QC): 6 Lying-Sitting on Side/Bed(QC): 6 Sit to Stand (QC): 6 Rollin Roll Left to Right (QC): 6 Chair/Qub-am-Nbmky Xfer(QC): 6 Car Transfer (QC): 6 Gait (FIM): 6 Distance: 300' Walk 10 feet (QC): 6 Walk 10ft-Uneven Surface(QC): 6 Walk 50ft with 2 Turns (QC): 6 Walk 150 ft (QC): 6 Gait Level of Assist: 6 Gait Assistive Device: FWW Stairs (FIM): 2 # of Steps: 4 1 Step (curb) (QC): 4 4 Steps (QC): 4 Stairs Level Of Assist: 5 PT Plan Problem List Problem List: Activity Tolerance, Functional Strength, Safety Treatment/Plan Treatment Plan: Continue Plan of Care Treatment Plan: Bed Mobility, Education, Functional Activity [place], Functional Strength, Group Therapy, Gait, Safety, Therapeutic Exercise, Transfers Treatment Duration: August 26, 2018 Frequency: At least 5 of 7 days/Wk (IRF) Estimated Hrs Per Day: 1.5 hours per day Patient and/or Family Agrees t: Yes Safety Risks/Education Patient Education: Safety Issues Teaching Recipient: Patient Teaching Methods: Discussion Response to Teaching: Verbalize Understanding Time/GCodes Time In: 1225 Time Out: 1255 Total Billed Treatment Time: 30 Total Billed Treatment visit NM 30 GALDINO NGUYEN PT August 09, 2018 11:07
--- NOTE | 2018-08-09 12:38 | PM&R Progress Note ---
Subjective HPI/CC On Admission Date Seen by Provider: August 09, 2018 Time Seen by Provider: 11:00 CC: Bilateral hip surgical incisions abscess with cellulitis and subsequent debility HPI: This is a 52-year-old white female clinic patient of Dr. Coelho in [facility] who is known to me from prior surgeries at [facility], [place] by Dr. Méndez who presented to inpatient rehab unit at [facility] due to severe debility following bilateral hip incision abscesses and cellulitis in need of 6 weeks of IV antibiotics of Ancef 500 mg IV every 8 hours after a PICC line placement in addition to severe debility following severe postoperative anemia due to acute blood loss with subsequent hemoglobin of 5.4 requiring 4 units of blood last week. She was placed on broad-spectrum antibiotics and culture revealed E. coli pansensitive so she will continue the IV antibiotics until completed and will participate in all therapies to strengthen in order to return back home independently after wound vacs are discontinued. Dr. Cantu is gracious enough to monitor the wound vacs while she is hospitalized at [facility] along with the wound care team. I checked her home medications , current hospital meds from [facility], [place] and review my previous consultation. She was living independently alone without difficulty or use of assistive devices and will return back home with modified independent activities of daily living along with ambulation since she lives alone. Subjective/Events-last exam Patient doing much better and progressing with PT Wound vacs maintained Ambulating well with therapy and in room with assistance Still very impulsive so alarms are in place to prevent falls Denies any significant pain issues Psych eval reviewed and no significant acute issues were noted Overall using incentive spirometer as ordered Conferred with RN Reviewed therapy notes Bowels are moving Labs reviewed Review of Systems Musculoskeletal: leg pain Objective Exam Vital Signs Vital Signs Date Time Temp Pulse Resp B/P (MAP) Pulse Ox O2 Delivery O2 Flow Rate FiO2 08/10/18 09:00 Room Air 08/10/18 05:04 98.7 85 16 157/89 (111) 97 Capillary Refill : Less Than 3 Seconds General Appearance: No Apparent Distress, WD/WN, Chronically ill HEENT: PERRL/EOMI, TMs Normal, Normal ENT Inspection, Pharynx Normal, Moist Mucous Membranes Neck: Full Range of Motion, Normal Inspection, Non Tender, Supple Respiratory: Chest Non Tender, Lungs Clear, Normal Breath Sounds, No Accessory Muscle Use, No Respiratory Distress Cardiovascular: Regular Rate, Rhythm, No Edema, No Gallop, No JVD, No Murmur Gastrointestinal: Normal Bowel Sounds, No Organomegaly, No Pulsatile Mass, Non Tender, Soft Back: Normal Inspection, No CVA Tenderness, No Vertebral Tenderness Extremity: Normal Capillary Refill, Normal Inspection, Normal Range of Motion, Non Tender, No Calf Tenderness, No Pedal Edema Neurologic/Psychiatric: Alert, Oriented x3, Normal Mood/Affect, Motor Weakness (weakness lower legs 4/[address] bilateral thighs) Skin: Normal Color, Warm/Dry Lymphatic: No Adenopathy Results/Procedures Lab Patient resulted labs reviewed. FIM Transfers Therapy Code Descriptions/Definitions Functional [place] Measure: 0=Not Assessed/NA 4=Minimal Assistance 1=Total Assistance 5=Supervision or Setup 2=Maximal Assistance 6=Modified [place] 3=Moderate Assistance 7=Complete [place] Therapy Quality Codes: 6 Independent with activity with or without an assistive device 5 Patient requires set up or clean up by helper. Patient completes activity by themselves 4 Supervision or touching assist (CGA). [place] provide cues , steadying assist 3 The helper provides less than half the effort to complete the activity 2 The helper provides more than half the effort to complete the activity 1 Dependent. The helper does all the effort to complete an activity 7 Patient refused to complete or attempt activity 9 The patient did not perform the activity before the current illness or injury 88 Not attempted due to Medical conditions or safety concerns Mental Status/Objective Comprehension: 7 Expression: 7 Social Interaction: 7 Problem Solvin Memory: 7 ADL-Treatment Feedin (dentures) Eating (QC): 6 Groomin (Pt performed grooming/hygiene tasks while seated in chair with setup. ) Oral Hygiene (QC): 4 Bathin (Pt performed sponge bath with setup while seated in chair. ) Bathing Location: L Arm, R Arm, L Upper Leg, R Upper Leg, L Lower Leg ( including foot), R Lower Leg (including foot), Chest, Abdomen, Buttocks, Perineal Area Shower/Bathe Self (QC): 4 Upper Extremity Dressin (UBD performed with setup ) Upper Body Dressing (QC): 4 Lower Extremity Dressin (LBD performed with setup and compensatory techniques. ) Lower Body Dressing (QC): 4 On/Off Footwear (QC): 4 Toiletin (complete 3/3 toiletin tasks with SBA for safety. balance and mangement of wound vac) Toileting Hygiene (QC): 4 Toilet/Commode Transfer: 5 Toilet Transfer (QC): 5 (SBA for safety/ balance ) Shower: 0 (not completed secondary to wound vac) Assessment/Plan Assessment and Plan Assess & Plan/Chief Complaint Assessment: Bilateral hip incision abscesses with wound vacs in place and needs 6 weeks of abx with PICC line placement Debility Post op anemia hgb 5.4 s/p 4 units of blood last week now 10 but low iron placing on iron infusions OA HLP TBI Depression Anxiety Constipation x 7 days now resolved Plan: BM regimen aggressive type to maintain to prevent recurrent constipation Iron infusions Monitor pain PT/OT Home meds GERD Tx Appreciate psych eval (1) Incisional abscess (2) Constipation (3) Anxiety (4) Depression (5) Hyperlipidemia (6) Osteoarthritis (7) GERD (gastroesophageal reflux disease) (8) TBI (traumatic brain injury) (9) Postoperative anemia (10) Transfusion history (11) Status post hip replacement (12) Former smoker (13) Iron deficiency INGA MORFIN DO August 09, 2018 12:38
[2018-08-09 18:00] VITALS: BP 114/70
[2018-08-09] MEDS: CALCIUM CARBONATE 600 MG (CALCARB) TAB PO SCH (21:21)
[2018-08-09] MEDS: ATORVASTATIN 40 MG (LIPITOR) TABLET PO SCH (21:22)
[2018-08-10 05:04] VITALS: BP 157/89
[2018-08-10] MEDS: PANTOPRAZOLE 40 MG (PROTONIX) TAB PO SCH (06:19)
[2018-08-10] MEDS: ASCORBIC ACID (VIT C) 500 MG TABLET PO SCH (06:19)
[2018-08-10] MEDS: ceFAZolin 1,000 MG/SWFI 10 ML IV PUSH IV SCH ×6 (06:20→21:09)
[2018-08-10] MEDS: BISACODYL 10 MG SUPP (DULCOLAX) PR SCH ×2 (09:00→21:10)
[2018-08-10] MEDS: POLYETHYLENE GLYCOL 17 GM (MIRALAX) PACK PO SCH ×2 (09:00→21:09)
[2018-08-10] MEDS: LACTULOSE SYRUP 10GM/15ML (ENULOSE) 30ML UDC PO SCH ×2 (09:00→21:09)
[2018-08-10] MEDS: SENNA W/DOCUSATE (SENOKOT S) TABLET PO SCH ×2 (09:04→21:09)
[2018-08-10] MEDS: FLUoxetine HCL 20 MG (PROzac) CAP PO SCH (09:04)
[2018-08-10] MEDS: GABAPENTIN 600 MG (NEURONTIN) TAB PO SCH ×3 (09:05→21:08)
[2018-08-10] MEDS: clonazePAM 0.5 MG (KlonoPIN) TAB PO SCH ×3 (09:05→21:07)
[2018-08-10] MEDS: MELOXICAM 7.5 MG (MOBIC) TABLET PO SCH ×2 (09:05→21:07)
[2018-08-10] MEDS: HYDROcodone/APAP 7.5 MG/325 MG (LORTAB, LORCET PLUS) TABLET PO PRN ×2 (09:05→21:08)
[2018-08-10] MEDS: ASPIRIN E.C. 81 MG (ECOTRIN) TAB PO SCH (09:07)
--- NOTE | 2018-08-10 12:54 | PM&R Progress Note ---
Subjective HPI/CC On Admission Date Seen by Provider: August 10, 2018 Time Seen by Provider: 12:30 CC: Bilateral hip surgical incisions abscess with cellulitis and subsequent debility HPI: This is a 52-year-old white female clinic patient of Dr. Coelho in [facility] who is known to me from prior surgeries at [facility] by Dr. Méndez who presented to inpatient rehab unit at [facility] due to severe debility following bilateral hip incision abscesses and cellulitis in need of 6 weeks of IV antibiotics of Ancef 500 mg IV every 8 hours after a PICC line placement in addition to severe debility following severe postoperative anemia due to acute blood loss with subsequent hemoglobin of 5.4 requiring 4 units of blood last week. She was placed on broad-spectrum antibiotics and culture revealed E. coli pansensitive so she will continue the IV antibiotics until completed and will participate in all therapies to strengthen in order to return back home independently after wound vacs are discontinued. Dr. Cantu is gracious enough to monitor the wound vacs while she is hospitalized at [facility] along with the wound care team. I checked her home medications , current hospital meds from [facility] and review my previous consultation. She was living independently alone without difficulty or use of assistive devices and will return back home with modified independent activities of daily living along with ambulation since she lives alone. Subjective/Events-last exam Patient doing much better and is desperate to get rid of the wound vacs Ambulating well with therapy and in room with assistance Still very impulsive so remains a fall risk at times Denies any significant pain issues Will check labs in am Overall using incentive spirometer as ordered Conferred with RN Reviewed therapy notes Bowels are moving Labs reviewed Review of Systems Musculoskeletal: leg pain Objective Exam Vital Signs Vital Signs Date Time Temp Pulse Resp B/P (MAP) Pulse Ox O2 Delivery O2 Flow Rate FiO2 08/10/18 09:00 Room Air 08/10/18 05:04 98.7 85 16 157/89 (111) 97 Capillary Refill : Less Than 3 Seconds General Appearance: No Apparent Distress, WD/WN, Chronically ill HEENT: PERRL/EOMI, TMs Normal, Normal ENT Inspection, Pharynx Normal, Moist Mucous Membranes Neck: Full Range of Motion, Normal Inspection, Non Tender, Supple Respiratory: Chest Non Tender, Lungs Clear, Normal Breath Sounds, No Accessory Muscle Use, No Respiratory Distress Cardiovascular: Regular Rate, Rhythm, No Edema, No Gallop, No JVD, No Murmur Gastrointestinal: Normal Bowel Sounds, No Organomegaly, No Pulsatile Mass, Non Tender, Soft Back: Normal Inspection, No CVA Tenderness, No Vertebral Tenderness Extremity: Normal Capillary Refill, Normal Inspection, Normal Range of Motion, Non Tender, No Calf Tenderness, No Pedal Edema Neurologic/Psychiatric: Alert, Oriented x3, Normal Mood/Affect, Motor Weakness (weakness lower legs 4/[address] bilateral thighs) Skin: Normal Color, Warm/Dry Lymphatic: No Adenopathy Results/Procedures Lab Patient resulted labs reviewed. FIM Transfers Therapy Code Descriptions/Definitions Functional [place] Measure: 0=Not Assessed/NA 4=Minimal Assistance 1=Total Assistance 5=Supervision or Setup 2=Maximal Assistance 6=Modified [place] 3=Moderate Assistance 7=Complete [place] Therapy Quality Codes: 6 Independent with activity with or without an assistive device 5 Patient requires set up or clean up by helper. Patient completes activity by themselves 4 Supervision or touching assist (CGA). [place] provide cues , steadying assist 3 The helper provides less than half the effort to complete the activity 2 The helper provides more than half the effort to complete the activity 1 Dependent. The helper does all the effort to complete an activity 7 Patient refused to complete or attempt activity 9 The patient did not perform the activity before the current illness or injury 88 Not attempted due to Medical conditions or safety concerns Mental Status/Objective Comprehension: 7 Expression: 7 Social Interaction: 7 Problem Solvin Memory: 7 ADL-Treatment Feedin (dentures) Eating (QC): 6 Groomin (Pt performed grooming/hygiene tasks while seated in chair with setup. ) Oral Hygiene (QC): 4 Bathin (Pt performed sponge bath with setup while seated in chair. ) Bathing Location: L Arm, R Arm, L Upper Leg, R Upper Leg, L Lower Leg ( including foot), R Lower Leg (including foot), Chest, Abdomen, Buttocks, Perineal Area Shower/Bathe Self (QC): 4 Upper Extremity Dressin (UBD performed with setup ) Upper Body Dressing (QC): 4 Lower Extremity Dressin (LBD performed with setup and compensatory techniques. ) Lower Body Dressing (QC): 4 On/Off Footwear (QC): 4 Toiletin (complete 3/3 toiletin tasks with SBA for safety. balance and mangement of wound vac) Toileting Hygiene (QC): 4 Toilet/Commode Transfer: 5 Toilet Transfer (QC): 5 (SBA for safety/ balance ) Shower: 0 (not completed secondary to wound vac) Assessment/Plan Assessment and Plan Assess & Plan/Chief Complaint Assessment: Bilateral hip incision abscesses with wound vacs in place and needs 6 weeks of abx with PICC line placement Debility Post op anemia hgb 5.4 s/p 4 units of blood 2 weeks ago now 10 but low iron placing on iron infusions OA HLP TBI Depression Anxiety Constipation x 7 days now resolved Plan: BM regimen aggressive type to maintain to prevent recurrent constipation Iron infusions Monitor pain PT/OT Home meds GERD Tx Appreciate psych eval Wound vacs (1) Incisional abscess (2) Constipation (3) Anxiety (4) Depression (5) Hyperlipidemia (6) Osteoarthritis (7) GERD (gastroesophageal reflux disease) (8) TBI (traumatic brain injury) (9) Postoperative anemia (10) Transfusion history (11) Status post hip replacement (12) Former smoker (13) Iron deficiency INGA MORFIN DO August 10, 2018 12:54
[2018-08-10 18:35] VITALS: BP 156/87
[2018-08-10] MEDS: ATORVASTATIN 40 MG (LIPITOR) TABLET PO SCH (21:07)
[2018-08-10] MEDS: CALCIUM CARBONATE 600 MG (CALCARB) TAB PO SCH (21:08)
[2018-08-11] MEDS: ASCORBIC ACID (VIT C) 500 MG TABLET PO SCH (05:00)
[2018-08-11] MEDS: ceFAZolin 1,000 MG/SWFI 10 ML IV PUSH IV SCH ×6 (05:00→21:20)
[2018-08-11] MEDS: PANTOPRAZOLE 40 MG (PROTONIX) TAB PO SCH (05:00)
[2018-08-11 05:19] VITALS: BP 148/82
[2018-08-11 05:33] LABS: BASOPHILS % (AUTO) 1 % (0-10); EOSINOPHILS # (AUTO) 0.3 10^3/uL (0.0-0.3); EOSINOPHILS % (AUTO) 5 % (0-10); HEMATOCRIT 31 % (35-52); HEMOGLOBIN 9.8 G/DL (11.5-16.0); LYMPHOCYTES # (AUTO) 2.9 X 10^3 (1.0-4.0); LYMPHOCYTES % (AUTO) 47 % (12-44); MEAN CORPUSCULAR HEMOGLOBIN 29 PG (25-34); MEAN CORPUSCULAR HGB CONC 31 G/DL (32-36); MEAN CORPUSCULAR VOLUME 92 FL (80-99); MEAN PLATELET VOLUME 9.5 FL (7.4-10.4); MONOCYTES # (AUTO) 0.5 X 10^3 (0.0-1.0); MONOCYTES % (AUTO) 9 % (0-12); NEUTROPHILS # (AUTO) 2.4 X 10^3 (1.8-7.8); NEUTROPHILS % (AUTO) 39 % (42-75); PLATELET COUNT 358 10^3/uL (130-400); RED CELL DISTRIBUTION WIDTH 18.2 % (10.0-14.5); WHITE BLOOD COUNT 6.1 10^3/uL (4.3-11.0)
[2018-08-11 05:48] LABS: ALANINE AMINOTRANSFERASE 10 U/L (0-55); ALBUMIN 3.2 GM/DL (3.2-4.5); ALKALINE PHOSPHATASE 124 U/L (40-136); BILIRUBIN,TOTAL 0.3 MG/DL (0.1-1.0); BUN/CREATININE RATIO 14; CALCIUM 9.2 MG/DL (8.5-10.1); CARBON DIOXIDE 26 MMOL/L (21-32); CHLORIDE 110 MMOL/L (98-107); CREATININE SERUM 0.71 MG/DL (0.60-1.30); GFR ESTIMATED > 60; GLUCOSE 90 MG/DL (70-105); POTASSIUM 3.8 MMOL/L (3.6-5.0); SODIUM 144 MMOL/L (135-145); TOTAL PROTEIN 5.6 GM/DL (6.4-8.2)
[2018-08-11] MEDS: LACTULOSE SYRUP 10GM/15ML (ENULOSE) 30ML UDC PO SCH ×2 (07:57→20:29)
[2018-08-11] MEDS: POLYETHYLENE GLYCOL 17 GM (MIRALAX) PACK PO SCH ×2 (07:58→20:29)
[2018-08-11] MEDS: BISACODYL 10 MG SUPP (DULCOLAX) PR SCH ×2 (07:58→20:29)
--- NOTE | 2018-08-11 08:10 | PM&R Progress Note ---
Subjective HPI/CC On Admission Date Seen by Provider: August 11, 2018 Time Seen by Provider: 08:15 CC: Bilateral hip surgical incisions abscess with cellulitis and subsequent debility HPI: This is a 52-year-old white female clinic patient of Dr. Coelho in [facility] who is known to me from prior surgeries at [facility] by Dr. Méndez who presented to inpatient rehab unit at [facility] due to severe debility following bilateral hip incision abscesses and cellulitis in need of 6 weeks of IV antibiotics of Ancef 500 mg IV every 8 hours after a PICC line placement in addition to severe debility following severe postoperative anemia due to acute blood loss with subsequent hemoglobin of 5.4 requiring 4 units of blood last week. She was placed on broad-spectrum antibiotics and culture revealed E. coli pansensitive so she will continue the IV antibiotics until completed and will participate in all therapies to strengthen in order to return back home independently after wound vacs are discontinued. Dr. Cantu is gracious enough to monitor the wound vacs while she is hospitalized at [facility] along with the wound care team. I checked her home medications , current hospital meds from [facility] and review my previous consultation. She was living independently alone without difficulty or use of assistive devices and will return back home with modified independent activities of daily living along with ambulation since she lives alone. Subjective/Events-last exam Labs are okay. Hgb 9.8, finishing up with iron infusions. Wound vac is in place Dr. Cantu is much appreciated in his management with that with wound care Aamir. Pain is better controlled. Overall feels like she is making progress. Using IS. Conferred with RN. Reviewed therapy notes. Review of Systems General: Fatigue Neurological: Weakness, Numbness, Incoordination Objective Exam Vital Signs Vital Signs Date Time Temp Pulse Resp B/P (MAP) Pulse Ox O2 Delivery O2 Flow Rate FiO2 08/11/18 17:22 98.5 86 18 106/69 (81) 96 Room Air Capillary Refill : Less Than 3 Seconds General Appearance: No Apparent Distress, WD/WN, Chronically ill HEENT: PERRL/EOMI, TMs Normal, Normal ENT Inspection, Pharynx Normal, Moist Mucous Membranes Neck: Full Range of Motion, Normal Inspection, Non Tender, Supple Respiratory: Chest Non Tender, Lungs Clear, Normal Breath Sounds, No Accessory Muscle Use, No Respiratory Distress Cardiovascular: Regular Rate, Rhythm, No Edema, No Gallop, No JVD, No Murmur Gastrointestinal: Normal Bowel Sounds, No Organomegaly, No Pulsatile Mass, Non Tender, Soft Back: Normal Inspection, No CVA Tenderness, No Vertebral Tenderness Extremity: Normal Capillary Refill, Normal Inspection, Normal Range of Motion, Non Tender, No Calf Tenderness, No Pedal Edema Neurologic/Psychiatric: Alert, Oriented x3, Normal Mood/Affect, Motor Weakness (weakness lower legs 4/[address] bilateral thighs) Skin: Normal Color, Warm/Dry Lymphatic: No Adenopathy Results/Procedures Lab Laboratory Tests 08/11/18 05:00 Patient resulted labs reviewed. FIM Transfers Therapy Code Descriptions/Definitions Functional [place] Measure: 0=Not Assessed/NA 4=Minimal Assistance 1=Total Assistance 5=Supervision or Setup 2=Maximal Assistance 6=Modified [place] 3=Moderate Assistance 7=Complete [place] Therapy Quality Codes: 6 Independent with activity with or without an assistive device 5 Patient requires set up or clean up by helper. Patient completes activity by themselves 4 Supervision or touching assist (CGA). [place] provide cues , steadying assist 3 The helper provides less than half the effort to complete the activity 2 The helper provides more than half the effort to complete the activity 1 Dependent. The helper does all the effort to complete an activity 7 Patient refused to complete or attempt activity 9 The patient did not perform the activity before the current illness or injury 88 Not attempted due to Medical conditions or safety concerns Mental Status/Objective Comprehension: 7 Expression: 7 Social Interaction: 7 Problem Solvin Memory: 7 ADL-Treatment Feedin (dentures) Eating (QC): 6 Groomin (Pt performed grooming/hygiene tasks while seated in chair with setup. ) Oral Hygiene (QC): 4 Bathin (Pt performed sponge bath with setup while seated in chair. ) Bathing Location: L Arm, R Arm, L Upper Leg, R Upper Leg, L Lower Leg ( including foot), R Lower Leg (including foot), Chest, Abdomen, Buttocks, Perineal Area Shower/Bathe Self (QC): 4 Upper Extremity Dressin (UBD performed with setup ) Upper Body Dressing (QC): 4 Lower Extremity Dressin (LBD performed with setup and compensatory techniques. ) Lower Body Dressing (QC): 4 On/Off Footwear (QC): 4 Toiletin (complete 3/3 toiletin tasks with SBA for safety. balance and mangement of wound vac) Toileting Hygiene (QC): 4 Toilet/Commode Transfer: 5 Toilet Transfer (QC): 5 (SBA for safety/ balance ) Shower: 0 (not completed secondary to wound vac) Assessment/Plan Assessment and Plan Assess & Plan/Chief Complaint Assessment: Bilateral hip incision abscesses with wound vacs in place and needs 6 weeks of abx with PICC line placement Debility Post op anemia hgb 5.4 s/p 4 units of blood 2 weeks ago now 10 but low iron placing on iron infusions OA HLP TBI Depression Anxiety Constipation x 7 days now resolved Plan: BM regimen aggressive type to maintain to prevent recurrent constipation Iron infusions Monitor pain PT/OT Home meds GERD Tx Appreciate psych eval Wound vacs (1) Incisional abscess (2) Constipation (3) Anxiety (4) Depression (5) Hyperlipidemia (6) Osteoarthritis (7) GERD (gastroesophageal reflux disease) (8) TBI (traumatic brain injury) (9) Postoperative anemia (10) Transfusion history (11) Status post hip replacement (12) Former smoker (13) Iron deficiency INGA MORFIN DO August 11, 2018 08:10
[2018-08-11] MEDS: FLUoxetine HCL 20 MG (PROzac) CAP PO SCH (08:31)
[2018-08-11] MEDS: ASPIRIN E.C. 81 MG (ECOTRIN) TAB PO SCH (08:31)
[2018-08-11] MEDS: SENNA W/DOCUSATE (SENOKOT S) TABLET PO SCH ×2 (08:31→20:29)
[2018-08-11] MEDS: clonazePAM 0.5 MG (KlonoPIN) TAB PO SCH ×3 (08:31→21:20)
[2018-08-11] MEDS: IRON SUCROSE 200 MG/10 ML (VENOFER) VIAL IV SCH (08:31)
[2018-08-11] MEDS: MELOXICAM 7.5 MG (MOBIC) TABLET PO SCH ×2 (08:31→20:28)
[2018-08-11] MEDS: GABAPENTIN 600 MG (NEURONTIN) TAB PO SCH ×3 (08:31→20:28)
--- NOTE | 2018-08-11 08:54 | Occupational Ther Daily Note ---
OT Current Status-Daily Note Subjective pt laying in bed upon OT Arrival in no apparent distress. pt agreed to OT TX session with focus on increasing independence with ADLS and UE strength. Pain Numeric Pain Scale: 4 Location: Left Location Body Site: Hip Pain Description: Ache Comment: NSG notified Mental Status/Objective Patient Orientation: Normal For Age Therapy Code Descriptions/Definitions Functional [place] Measure: 0=Not Assessed/NA 4=Minimal Assistance 1=Total Assistance 5=Supervision or Setup 2=Maximal Assistance 6=Modified [place] 3=Moderate Assistance 7=Complete [place] wound VAC Star LE ADL-Treatment Therapy Code Descriptions/Definitions Functional [place] Measure: 0=Not Assessed/NA 4=Minimal Assistance 1=Total Assistance 5=Supervision or Setup 2=Maximal Assistance 6=Modified [place] 3=Moderate Assistance 7=Complete [place] Therapy Quality Codes: 6 Independent with activity with or without an assistive device 5 Patient requires set up or clean up by helper. Patient completes activity by themselves 4 Supervision or touching assist (CGA). [place] provide cues , steadying assist 3 The helper provides less than half the effort to complete the activity 2 The helper provides more than half the effort to complete the activity 1 Dependent. The helper does all the effort to complete an activity 7 Patient refused to complete or attempt activity 9 The patient did not perform the activity before the current illness or injury 88 Not attempted due to Medical conditions or safety concerns Eating (FIM): 6 (dentures ) Eating (QC): 6 Grooming (FIM): 5 (standing at sink. requried VC for hip precuations while placing items on floor. ) Oral Hygiene (QC): 4 Bathing (FIM): 5 (required cuing for hip precuations. pt educaition on long handled sponge. ) Bathing Location: L Arm, R Arm, L Upper Leg, R Upper Leg, L Lower Leg ( including foot), R Lower Leg (including foot), Chest, Abdomen, Buttocks, Perineal Area Shower/Bathe Self (QC): 4 Upper Body (FIM): 6 (pt demo ability to gather clothing from closet and donnshirt. ) Upper Body Dressing (QC): 5 Lower Body Dressing (FIM): 5 (pt requried VC fro hip precautions/ HIP kit set up) Lower Body Dressing (QC): 4 On/Off Footwear (QC): 4 Toileting (FIM): 5 Toileting Hygiene (QC): 4 Transfers (B, C, W/C) (FIM): 5 Toilet/Commode Transfer (FIM): 5 Toilet Transfer (QC): 4 pt demo ability to gather clothing from closet with SBA for safety/ balance and perform ADLS tasks in bathroom. pt required set up of hip kit tool and VC for hip precautions throughout ADLs. pt perform fall functional transfers with SBA using RW. pt required assist with set of of wound vac onto RW. Other Treatment post ADLs pt ambulated to TX gym and demo ability to perform HEP with 3# weights 15X2 all planes to increase overall strength for daily activities. pt demo good activity tolerance during task this date. Education OT Patient Education: Energy conservation, Exercise program, Reviewed precautions, Safety issues, Transfer techniques, Use of adapted equipment Teaching Recipient: Patient Teaching Methods: Demonstration, Discussion Response to Teaching: Verbalize Understanding, Return Demonstration OT Short Term Goals Short Term Goals Transfers (B,C,W/C) (FIM): 6 1=Demonstrate adherence to instructed precautions during ADL tasks. 2=Patient will verbalize/demonstrate understanding of assistive devices/ modifications for ADL. 3=Patient will improve strength/tolerance for activity to enable patient to perform ADL's. OT Watcher [employer] Goals [facility]ci Goals Time Frame: August 26, 2018 Eating (FIM): 6 Eating (QC): 6 Groomin Oral Hygiene (QC): 6 Bathing(FIM): 6 Shower/Bathe Self (QC): 6 Upper Body Dressing(FIM): 6 Upper Body Dressing (QC): 6 Lower Body Dressing(FIM): 6 Lower Body Dressing (QC): 6 On/Off Footwear (QC): 6 Toileting(FIM): 6 Toileting Hygiene (QC): 6 Toilet/Commode Transfer(FIM): 6 Toilet/Commode Transfer (QC): 6 Shower Transfer(FIM): 6 Additional Goals: 1-Demonstrate ADL Tasks, 2-Verbalize Understanding, 3- ImproveStrength/Lorena 1=Demonstrate adherence to instructed precautions during ADL tasks. 2=Patient will verbalize/demonstrate understanding of assistive devices/ modifications for ADL. 3=Patient will improve strength/tolerance for activity to enable patient to perform ADL's. OT Education/Plan Problem List/Assessment Assessment: Decreased UE Strength, Impaired I ADL's, Impaired Self-Care Skills Discharge Recommendations Plan/Recommendations: Continue POC Barriers to Progress decrease ability to follow hip precautions required MOD VC Treatment Plan/Plan of Care Treatment,Training & Education: Yes Patient would benefit from OT for education, treatment and training to promote independence in ADL's, mobility, safety and/or upper extremity function for ADL' s. Plan of Care: ADL Retraining, Functional Mobility, Group Exercise/Act as Ind, UE Funct Exercise/Act Treatment Duration: August 26, 2018 Frequency: At least 5 of 7 days/Wk (IRF) Estimated Hrs Per Day: 1.5 hours per day Rehab Potential: Fair Time/GCodes Start Time: 08:00 Stop Time: 09:30 Billed Treatment Time ADL 70 minutes, 5 units EX 20 minutes, 1 unit RUDDY JO OT August 11, 2018 08:54
[2018-08-11] MEDS: HYDROcodone/APAP 7.5 MG/325 MG (LORTAB, LORCET PLUS) TABLET PO PRN ×2 (09:29→20:28)
--- NOTE | 2018-08-11 11:15 | NUR ---
Removed prevena dressing with Dr. Cantu at bedside. Dr Cantu assessed sutures B/L hips. Telfa was used over incision with [place] dressing to secure telfa. Dressing changes daily
--- NOTE | 2018-08-11 11:23 | Progress Note ---
Subjective Time Seen by a Provider: 11:16 Subjective/Events-last exam Pt seen and examined with wound care nurse. Pt without complaints, just got back from PT. Review of Systems General: No Chills, No Night Sweats Pulmonary: No Dyspnea, No Cough Cardiovascular: No: Chest Pain, Palpitations Objective Exam Vital Signs Date Time Temp Pulse Resp B/P (MAP) Pulse Ox O2 Delivery O2 Flow Rate FiO2 08/11/18 09:00 Room Air 08/11/18 05:19 96.4 87 16 148/82 (104) 95 Room Air 08/10/18 21:56 Room Air 08/10/18 18:35 97.8 88 18 156/87 (110) 99 Room Air I & O 08/11/18 07:00 Intake Total 1310 ml Balance 1310 ml Capillary Refill : Less Than 3 Seconds General Appearance: No Apparent Distress, WD/WN HEENT: PERRL/EOMI, Pharynx Normal, Moist Mucous Membranes Neck: Full Range of Motion, Normal Inspection, Non Tender, Supple Respiratory: Chest Non Tender, Lungs Clear, Normal Breath Sounds, No Accessory Muscle Use, No Respiratory Distress Cardiovascular: Regular Rate, Rhythm, No Murmur Gastrointestinal: normal bowel sounds, non tender, soft, no organomegaly Extremity: No Calf Tenderness, No Pedal Edema, Other (both hip incisions are C/ D/I, no erythema) Neurologic/Psychiatric: Alert, Oriented x3, Normal Mood/Affect, Motor Weakness (weakness lower legs 4/[address] bilateral thighs) Results Lab Laboratory Tests 08/11/18 05:00: White Blood Count 6.1, Red Blood Count 3.41L, Hemoglobin 9.8L, Hematocrit 31L, Mean Corpuscular Volume 92, Mean Corpuscular Hemoglobin 29, Mean Corpuscular Hemoglobin Concent 31L, Red Cell Distribution Width 18.2H, Platelet Count 358, Mean Platelet Volume 9.5, Neutrophils (%) (Auto) 39L, Lymphocytes (%) (Auto) 47H , Monocytes (%) (Auto) 9, Eosinophils (%) (Auto) 5, Basophils (%) (Auto) 1, Neutrophils # (Auto) 2.4, Lymphocytes # (Auto) 2.9, Monocytes # (Auto) 0.5, Eosinophils # (Auto) 0.3, Basophils # (Auto) 0.0, Sodium Level 144, Potassium Level 3.8, Chloride Level 110H, Carbon Dioxide Level 26, Anion Gap 8, Blood Urea Nitrogen 10, Creatinine 0.71, Estimat Glomerular Filtration Rate > 60, BUN/ Creatinine Ratio 14, Glucose Level 90, Calcium Level 9.2, Corrected Calcium 9.8 , Total Bilirubin 0.3, Aspartate Amino Transf (AST/SGOT) 22, Alanine Aminotransferase (ALT/SGPT) 10, Alkaline Phosphatase 124, Total Protein 5.6L, Albumin 3.2 Assessment/Plan Assessment/Plan Assessment/Plan Takedown of Bilateral Wound VAC over Hip incision Areas look good, keep clean and dry. Would leave sutures another week at least. I will recheck tomorrow. Clinical Quality Measures DVT/VTE Risk/Contraindication: Risk Factor Score Per Nursin RFS Level Per Nursing on Admit: 4+=Very High Contraindications-Mechi: Other *list below* Other: High Bleed risk. On Mobic and ASA. SCDS only. ELSI MAY DO August 11, 2018 11:23
--- NOTE | 2018-08-11 12:06 | NUR ---
As patient will need home infused IV abx at discharge, BALL POINTS INSPECTOR sent preliminary paperwork to previous infusion provider, Alen. A discharge date has not been established at this time; however, BALL POINTS INSPECTOR is proactive in home arrangements. Addendum: 08/11/18 at 1657 by ADAM TURNER SS BALL POINTS INSPECTOR received keller quote for home IV Vanco and IV Ceftriaxone antibiotics of $2.50 per week. This information was provided to patient.
--- NOTE | 2018-08-11 12:18 | Physical Therapy Daily Note ---
PT Daily Note-Current Subjective Pt sitting at EOB upon arrival. Pt agrees to PT and reports being excited for Wound Vac to be taken off today. Pain Numeric Pain Scale: 3 Location: Left Location Body Site: Hip Pain Description: Ache Mental Status Patient Orientation: Person, Place, Time, Situation Attachments: Other-See Comments (Wound Vac.) Transfers Therapy Code Descriptions/Definitions Functional [place] Measure: 0=Not Assessed/NA 4=Minimal Assistance 1=Total Assistance 5=Supervision or Setup 2=Maximal Assistance 6=Modified [place] 3=Moderate Assistance 7=Complete [place] Therapy Quality Codes: 6 Independent with activity with or without an assistive device 5 Patient requires set up or clean up by helper. Patient completes activity by themselves 4 Supervision or touching assist (CGA). [place] provide cues , steadying assist 3 The helper provides less than half the effort to complete the activity 2 The helper provides more than half the effort to complete the activity 1 Dependent. The helper does all the effort to complete an activity 7 Patient refused to complete or attempt activity 9 The patient did not perform the activity before the current illness or injury 88 Not attempted due to Medical conditions or safety concerns Scootin Supine to/from Sit: 6 Sit to/from Stand: 6 Sit to Lying (QC): 6 Sit to Stand (QC): 6 Weight Bearing Right Lower Extremity: Right Weight Bearing/Tolerated Left Lower Extremity: Left Weight Bearing/Tolerated Gait Training Does the Patient Walk?: Yes Distance (FIM): 3=150 ft Distance: 150' Walk 10 feet (QC): 6 Walk 50 ft with 2 Turns(QC): 6 Walk 150 ft (QC): 6 Gait Level of Assist: 6 Gait Persons Needed: 1 Gait Assistive Device: FWW Pt is walking more normalized, slightly slow and antalgic due to Wound Vac. Pt is anticipating removal today. Wheelchair Training Does the Pt Use a Wheelchair?: No Stair Training Stair Training: Handrails/: 2 handrails #of Steps: 8 1 Step (curb) (QC): 5 4 Steps (QC): 5 Stairs: Pattern: Step to Level of Assist: 5 Exercises Standing: Hamstring curls, Heel/toe raises, 3 way Ex=Flex, Abd, Ext, Marching, Mini squats, Weight shifts NuStep Minutes: 10 NuStep Workload: 4 Treatments Pt transfers from chair to standing then ambulates in hallway using FWW. Pt uses NuStep for 10m at WL 4 with seat positioned as to not break Hip Precautions. Pt completes Standing Ex at //bars. Pt completes 2 sets of 8 steps. Pt returns to room at end of tx with all needs met. Assessment Pt continues to make gains with strength and ROM. Pt is also more mobile. PT Short Term Goals Short Term Goals Time Frame: August 12, 2018 Transfers (B,C,W/C) (FIM): 6 Gait (FIM): 6 Gait Distance Comment: 150' Gait Level of Assist: 6 Gait Assistive Device: FWW PT Assisted Goals Silverware Assembler Goals PT Silverware Assembler Goals Time Frame: August 26, 2018 Transfers (B,C,W/C) (FIM): 6 Sit to Lying (QC): 6 Lying-Sitting on Side/Bed(QC): 6 Sit to Stand (QC): 6 Rollin Roll Left to Right (QC): 6 Chair/Oul-xp-Enqdn Xfer(QC): 6 Car Transfer (QC): 6 Gait (FIM): 6 Distance: 300' Walk 10 feet (QC): 6 Walk 10ft-Uneven Surface(QC): 6 Walk 50ft with 2 Turns (QC): 6 Walk 150 ft (QC): 6 Gait Level of Assist: 6 Gait Assistive Device: FWW Stairs (FIM): 2 # of Steps: 4 1 Step (curb) (QC): 4 4 Steps (QC): 4 Stairs Level Of Assist: 5 PT Plan Problem List Problem List: Activity Tolerance Treatment/Plan Treatment Plan: Continue Plan of Care Treatment Plan: Bed Mobility, Education, Functional Activity Lorena, Functional Strength, Group Therapy, Gait, Safety, Therapeutic Exercise, Transfers Treatment Duration: August 26, 2018 Frequency: At least 5 of 7 days/Wk (IRF) Estimated Hrs Per Day: 1.5 hours per day Patient and/or Family Agrees t: Yes Safety Risks/Education Patient Education: Gait Training, Transfer Techniques, Reviewed Precautions, Correct Positioning, Safety Issues Teaching Recipient: Patient Teaching Methods: Discussion Response to Teaching: Verbalize Understanding Time/GCodes Time In: 1015 Time Out: 1115 Total Billed Treatment Time: 60 Total Billed Treatment 1, GT (15m), EX x2 (35m) & FA (10m) G Codes Necessary: NIDHI Carey WATCH MANUFACTURING SUPERVISOR August 11, 2018 12:18
--- NOTE | 2018-08-11 16:07 | Physical Therapy Daily Note ---
PT Daily Note-Current Subjective Pt sitting up in recliner upon arrival. Pt agrees to PT. Pain Numeric Pain Scale: 3 Location: Left Location Body Site: Hip Pain Description: Ache, Tightness Mental Status Patient Orientation: Person, Place, Time, Situation Wound Vac was removed after morning tx. Transfers Therapy Code Descriptions/Definitions Functional [place] Measure: 0=Not Assessed/NA 4=Minimal Assistance 1=Total Assistance 5=Supervision or Setup 2=Maximal Assistance 6=Modified [place] 3=Moderate Assistance 7=Complete [place] Therapy Quality Codes: 6 Independent with activity with or without an assistive device 5 Patient requires set up or clean up by helper. Patient completes activity by themselves 4 Supervision or touching assist (CGA). [place] provide cues , steadying assist 3 The helper provides less than half the effort to complete the activity 2 The helper provides more than half the effort to complete the activity 1 Dependent. The helper does all the effort to complete an activity 7 Patient refused to complete or attempt activity 9 The patient did not perform the activity before the current illness or injury 88 Not attempted due to Medical conditions or safety concerns Scootin Supine to/from Sit: 6 Sit to/from Stand: 6 Sit to Lying (QC): 6 Sit to Stand (QC): 6 Weight Bearing Right Lower Extremity: Right Weight Bearing/Tolerated Left Lower Extremity: Left Weight Bearing/Tolerated Gait Training Does the Patient Walk?: Yes Distance (FIM): 3=150 ft Distance: 150' Walk 10 feet (QC): 6 Walk 50 ft with 2 Turns(QC): 6 Walk 150 ft (QC): 6 Gait Level of Assist: 6 Gait Persons Needed: 1 Gait Assistive Device: FWW Pt is walking more normalized this afternoon. Wheelchair Training Does the Pt Use a Wheelchair?: No Exercises Supine Ex: Ankle pumps, Quad Set, Glut sets, Heel Slides, Straight leg raise, Hip abd/add Supine Reps: 15 Standing: Hip Abduction, Hamstring curls, Marching, Mini squats Standing Reps: 10 Treatments Pt transfers from recliner to standing then ambulates in hallway using FWW. Pt completes Supine Ex on mat followed a few Standing Ex at //bars. Pt returns to room at end of tx with all needs met. Assessment Current Status: Good Progress Pt is feeling better and moving better w/o Wound Vac. Pt is excited for removal of Wound Vac. & upcoming D/C. PT Short Term Goals Short Term Goals Time Frame: August 12, 2018 Transfers (B,C,W/C) (FIM): 6 Gait (FIM): 6 Gait Distance Comment: 150' Gait Level of Assist: 6 Gait Assistive Device: FWW PT Used [employer] Goals Senior Living Goals PT Used [employer] [place] Goals Time Frame: August 26, 2018 Transfers (B,C,W/C) (FIM): 6 Sit to Lying (QC): 6 Lying-Sitting on Side/Bed(QC): 6 Sit to Stand (QC): 6 Rollin Roll Left to Right (QC): 6 Chair/Vuc-tq-Iqzqp Xfer(QC): 6 Car Transfer (QC): 6 Gait (FIM): 6 Distance: 300' Walk 10 feet (QC): 6 Walk 10ft-Uneven Surface(QC): 6 Walk 50ft with 2 Turns (QC): 6 Walk 150 ft (QC): 6 Gait Level of Assist: 6 Gait Assistive Device: FWW Stairs (FIM): 2 # of Steps: 4 1 Step (curb) (QC): 4 4 Steps (QC): 4 Stairs Level Of Assist: 5 PT Plan Problem List Problem List: Activity Tolerance Treatment/Plan Treatment Plan: Continue Plan of Care Treatment Plan: Bed Mobility, Education, Functional Activity Lorena, Functional Strength, Group Therapy, Gait, Safety, Therapeutic Exercise, Transfers Treatment Duration: August 26, 2018 Frequency: At least 5 of 7 days/Wk (IRF) Estimated Hrs Per Day: 1.5 hours per day Patient and/or Family Agrees t: Yes Safety Risks/Education Patient Education: Safety Issues Teaching Recipient: Patient Teaching Methods: Discussion Response to Teaching: Verbalize Understanding Time/GCodes Time In: 1400 Time Out: 1430 Total Billed Treatment Time: 30 Total Billed Treatment 1, GT (10m) & EX (20m) G Codes Necessary: NIDHI Carey MANAGER AUTO August 11, 2018 16:07
[2018-08-11 17:22] VITALS: BP 106/69
[2018-08-11] MEDS: CALCIUM CARBONATE 600 MG (CALCARB) TAB PO SCH (20:28)
[2018-08-11] MEDS: ATORVASTATIN 40 MG (LIPITOR) TABLET PO SCH (20:28)
[2018-08-12 05:13] VITALS: BP 128/74
[2018-08-12] MEDS: PANTOPRAZOLE 40 MG (PROTONIX) TAB PO SCH (06:05)
[2018-08-12] MEDS: ceFAZolin 1,000 MG/SWFI 10 ML IV PUSH IV SCH ×6 (06:05→21:57)
[2018-08-12] MEDS: ASCORBIC ACID (VIT C) 500 MG TABLET PO SCH (06:05)
--- NOTE | 2018-08-12 08:31 | PM&R Progress Note ---
Subjective HPI/CC On Admission Date Seen by Provider: August 12, 2018 Time Seen by Provider: 08:30 CC: Bilateral hip surgical incisions abscess with cellulitis and subsequent debility HPI: This is a 52-year-old white female clinic patient of Dr. Coelho in [facility] who is known to me from prior surgeries at [facility] by Dr. Méndez who presented to inpatient rehab unit at [facility] due to severe debility following bilateral hip incision abscesses and cellulitis in need of 6 weeks of IV antibiotics of Ancef 500 mg IV every 8 hours after a PICC line placement in addition to severe debility following severe postoperative anemia due to acute blood loss with subsequent hemoglobin of 5.4 requiring 4 units of blood last week. She was placed on broad-spectrum antibiotics and culture revealed E. coli pansensitive so she will continue the IV antibiotics until completed and will participate in all therapies to strengthen in order to return back home independently after wound vacs are discontinued. Dr. Cantu is gracious enough to monitor the wound vacs while she is hospitalized at [facility] along with the wound care team. I checked her home medications , current hospital meds from [facility] and review my previous consultation. She was living independently alone without difficulty or use of assistive devices and will return back home with modified independent activities of daily living along with ambulation since she lives alone. Subjective/Events-last exam Having no new problems. Wound vacs were removed yesterday by Dr. Cantu. Overall responding well to IV antibiotics. Picc line is functioning properly. Bowels are moving. No pain reported. Conferred with RN. Reviewed therapy notes. Review of Systems General: Fatigue Musculoskeletal: leg pain Objective Exam Vital Signs Vital Signs Date Time Temp Pulse Resp B/P (MAP) Pulse Ox O2 Delivery O2 Flow Rate FiO2 08/12/18 17:52 98.8 81 16 131/81 (98) 97 Room Air Capillary Refill : Less Than 3 Seconds General Appearance: No Apparent Distress, WD/WN, Chronically ill HEENT: PERRL/EOMI, TMs Normal, Normal ENT Inspection, Pharynx Normal, Moist Mucous Membranes Neck: Full Range of Motion, Normal Inspection, Non Tender, Supple Respiratory: Chest Non Tender, Lungs Clear, Normal Breath Sounds, No Accessory Muscle Use, No Respiratory Distress Cardiovascular: Regular Rate, Rhythm, No Edema, No Gallop, No JVD, No Murmur Gastrointestinal: Normal Bowel Sounds, No Organomegaly, No Pulsatile Mass, Non Tender, Soft Back: Normal Inspection, No CVA Tenderness, No Vertebral Tenderness Extremity: Normal Capillary Refill, Normal Inspection, Normal Range of Motion, Non Tender, No Calf Tenderness, No Pedal Edema Neurologic/Psychiatric: Alert, Oriented x3, Normal Mood/Affect, Motor Weakness (weakness lower legs 4/[address] bilateral thighs) Skin: Normal Color, Warm/Dry Lymphatic: No Adenopathy Results/Procedures Lab Patient resulted labs reviewed. FIM Transfers Therapy Code Descriptions/Definitions Functional [place] Measure: 0=Not Assessed/NA 4=Minimal Assistance 1=Total Assistance 5=Supervision or Setup 2=Maximal Assistance 6=Modified [place] 3=Moderate Assistance 7=Complete [place] Therapy Quality Codes: 6 Independent with activity with or without an assistive device 5 Patient requires set up or clean up by helper. Patient completes activity by themselves 4 Supervision or touching assist (CGA). [place] provide cues , steadying assist 3 The helper provides less than half the effort to complete the activity 2 The helper provides more than half the effort to complete the activity 1 Dependent. The helper does all the effort to complete an activity 7 Patient refused to complete or attempt activity 9 The patient did not perform the activity before the current illness or injury 88 Not attempted due to Medical conditions or safety concerns Mental Status/Objective Comprehension: 7 Expression: 7 Social Interaction: 7 Problem Solvin Memory: 7 ADL-Treatment Feedin (dentures ) Eating (QC): 6 Groomin (standing at sink. requried VC for hip precuations while placing items on floor. ) Oral Hygiene (QC): 4 Bathin (required cuing for hip precuations. pt educaition on long handled sponge. ) Bathing Location: L Arm, R Arm, L Upper Leg, R Upper Leg, L Lower Leg ( including foot), R Lower Leg (including foot), Chest, Abdomen, Buttocks, Perineal Area Shower/Bathe Self (QC): 4 Upper Extremity Dressin (pt demo ability to gather clothing from closet and donnshirt. ) Upper Body Dressing (QC): 5 Lower Extremity Dressin (pt requried VC fro hip precautions/ HIP kit set up ) Lower Body Dressing (QC): 4 On/Off Footwear (QC): 4 Toiletin Toileting Hygiene (QC): 4 Toilet/Commode Transfer: 5 Toilet Transfer (QC): 4 Shower: 0 (not completed secondary to wound vac) Assessment/Plan Assessment and Plan Assess & Plan/Chief Complaint Assessment: Bilateral hip incision abscesses with wound vacs in place and needs 6 weeks of abx with PICC line placement Debility Post op anemia hgb 5.4 s/p 4 units of blood 2 weeks ago now 10 but low iron placing on iron infusions OA HLP TBI Depression Anxiety Constipation x 7 days now resolved Plan: BM regimen aggressive type to maintain to prevent recurrent constipation Iron infusions Monitor pain PT/OT Home meds GERD Tx Appreciate psych eval Wound vacs DC now (1) Incisional abscess (2) Constipation (3) Anxiety (4) Depression (5) Hyperlipidemia (6) Osteoarthritis (7) GERD (gastroesophageal reflux disease) (8) TBI (traumatic brain injury) (9) Postoperative anemia (10) Transfusion history (11) Status post hip replacement (12) Former smoker (13) Iron deficiency INGA MORFIN DO August 12, 2018 08:31
[2018-08-12] MEDS: FLUoxetine HCL 20 MG (PROzac) CAP PO SCH (08:55)
[2018-08-12] MEDS: MELOXICAM 7.5 MG (MOBIC) TABLET PO SCH ×2 (08:55→19:47)
[2018-08-12] MEDS: GABAPENTIN 600 MG (NEURONTIN) TAB PO SCH ×3 (08:55→19:46)
[2018-08-12] MEDS: HYDROcodone/APAP 7.5 MG/325 MG (LORTAB, LORCET PLUS) TABLET PO PRN ×2 (08:55→19:47)
[2018-08-12] MEDS: ASPIRIN E.C. 81 MG (ECOTRIN) TAB PO SCH (08:56)
[2018-08-12] MEDS: clonazePAM 0.5 MG (KlonoPIN) TAB PO SCH ×3 (08:58→21:56)
[2018-08-12] MEDS: LACTULOSE SYRUP 10GM/15ML (ENULOSE) 30ML UDC PO SCH ×2 (09:08→20:18)
[2018-08-12] MEDS: BISACODYL 10 MG SUPP (DULCOLAX) PR SCH ×2 (09:09→20:19)
[2018-08-12] MEDS: SENNA W/DOCUSATE (SENOKOT S) TABLET PO SCH ×2 (09:09→20:19)
[2018-08-12] MEDS: POLYETHYLENE GLYCOL 17 GM (MIRALAX) PACK PO SCH ×2 (09:09→20:19)
--- NOTE | 2018-08-12 10:31 | Physical Therapy Daily Note ---
PT Daily Note-Current Subjective Agrees to PT. Reports she is tired today. Mental Status Patient Orientation: Person, Place, Time, Situation Transfers Therapy Code Descriptions/Definitions Functional [place] Measure: 0=Not Assessed/NA 4=Minimal Assistance 1=Total Assistance 5=Supervision or Setup 2=Maximal Assistance 6=Modified [place] 3=Moderate Assistance 7=Complete [place] Therapy Quality Codes: 6 Independent with activity with or without an assistive device 5 Patient requires set up or clean up by helper. Patient completes activity by themselves 4 Supervision or touching assist (CGA). [place] provide cues , steadying assist 3 The helper provides less than half the effort to complete the activity 2 The helper provides more than half the effort to complete the activity 1 Dependent. The helper does all the effort to complete an activity 7 Patient refused to complete or attempt activity 9 The patient did not perform the activity before the current illness or injury 88 Not attempted due to Medical conditions or safety concerns Supine to/from Sit: 7 Sit to/from Stand: 5 (SBA for safety. ) safe with transfers and bed mobiolity; SBA for upright transfers for safety but pt demonstrates good technique. Weight Bearing Right Lower Extremity: Right Weight Bearing/Tolerated Left Lower Extremity: Left Weight Bearing/Tolerated Gait Training Does the Patient Walk?: Yes Gait (FIM): 5 Distance (FIM): 3=150 ft Gait Assistive Device: FWW Pt walked 250 ft x 2 with FWW with SBA. Pt also walked through an obstacle course to include uneven surface, curb step and weaving to promote safe use of walker and functional balance in a more difficult environement with need to avoid obstacles. Pt was SBA with this gait/balance training as well. Stair Training Stair Training: Handrails/: 2 handrails Stairs (FIM): 2 Stairs: Pattern: Step to Up/down 4 steps with handrail with SBA. Safe and without LOB episode. Exercises Supine Ex: Bridging, Ankle pumps, Quad Set, Glut sets, Heel Slides, Short Arc Quads, Hip abd/add Supine Reps: 15 (to promote LE strength for safety and mobility) Assessment Current Status: Good Progress Pt tolerated treatment well and was safe with functional mobility throughout treatment. No noted LOB episodes and did well with higher level gait/balance activity to promote safety in her home and for community mobility progression. 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 Welding Machine Operator Goals PT Longterm Goals Time Frame: August 26, 2018 Transfers (B,C,W/C) (FIM): 6 Sit to Lying (QC): 6 Lying-Sitting on Side/Bed(QC): 6 Sit to Stand (QC): 6 Rollin Roll Left to Right (QC): 6 Chair/Lhd-to-Crkky Xfer(QC): 6 Car Transfer (QC): 6 Gait (FIM): 6 Distance: 300' Walk 10 feet (QC): 6 Walk 10ft-Uneven Surface(QC): 6 Walk 50ft with 2 Turns (QC): 6 Walk 150 ft (QC): 6 Gait Level of Assist: 6 Gait Assistive Device: FWW Stairs (FIM): 2 # of Steps: 4 1 Step (curb) (QC): 4 4 Steps (QC): 4 Stairs Level Of Assist: 5 PT Plan Problem List Problem List: Activity Tolerance, Functional Strength, Safety, Balance, Gait, Transfer, Bed Mobility Treatment/Plan Treatment Plan: Continue Plan of Care Treatment Plan: Bed Mobility, Education, Functional Activity Lore[place], Functional Strength, Group Therapy, Gait, Safety, Therapeutic Exercise, Transfers Treatment Duration: August 26, 2018 Frequency: At least 5 of 7 days/Wk (IRF) Estimated Hrs Per Day: 1.5 hours per day Patient and/or Family Agrees t: Yes Safety Risks/Education Patient Education: Safety Issues Teaching Recipient: Patient Teaching Methods: Discussion Response to Teaching: Return Demonstration Time/GCodes Time In: 927 Time Out: 1030 Total Billed Treatment Time: 63 Total Billed Treatment visit NM 15 GT 30 EX 18 GALDINO NGUYEN PT August 12, 2018 10:31
--- NOTE | 2018-08-12 12:08 | Occupational Ther Daily Note ---
OT Current Status-Daily Note Subjective pt agreed to OT TX session with focus on increase standing balance/ tolerance, kitchen mobility, and use of reach to maintain hip precautions for daily activities Mental Status/Objective Therapy Code Descriptions/Definitions Functional [place] Measure: 0=Not Assessed/NA 4=Minimal Assistance 1=Total Assistance 5=Supervision or Setup 2=Maximal Assistance 6=Modified [place] 3=Moderate Assistance 7=Complete [place] ADL-Treatment Therapy Code Descriptions/Definitions Functional [place] Measure: 0=Not Assessed/NA 4=Minimal Assistance 1=Total Assistance 5=Supervision or Setup 2=Maximal Assistance 6=Modified [place] 3=Moderate Assistance 7=Complete [place] Therapy Quality Codes: 6 Independent with activity with or without an assistive device 5 Patient requires set up or clean up by helper. Patient completes activity by themselves 4 Supervision or touching assist (CGA). [place] provide cues , steadying assist 3 The helper provides less than half the effort to complete the activity 2 The helper provides more than half the effort to complete the activity 1 Dependent. The helper does all the effort to complete an activity 7 Patient refused to complete or attempt activity 9 The patient did not perform the activity before the current illness or injury 88 Not attempted due to Medical conditions or safety concerns Transfers (B, C, W/C) (FIM): 5 Other Treatment pt education on safe kitchen mobility and using RW and maintaining hip precautions. . pt education on use of oven, microwave, singer and unloader, cabinets, and refrigerator. pt demo ability to perform safe kitchen mobility using RW with SBA for safety/ balance X3 with no LOB noted. pt then ambulated to TX gym 75 ft with distance supervision using RW . pt education on use of process planner to pick items up from floor for energy conservation techniques and safety/ balance while maintaining hip precautions. pt demo ability to continuous pickling line pickler helper 10 items using process planner while seated MOD I. pt then demo ability to gather 11X3 items from floor while standing / performing functional mobility maintaining balance using RW and process planner. noted no LOB. pt then demo ability to maintain static standing balance using no AE for 6 minutes while performing table top game (WII bowling) to increase standing tolerance/ balance during occupation based treatment. pt then ambulated back to room 100 ft with SPV for safety/ balance. pt laying in bed post OT Session. all needs met. Education OT Patient Education: Energy conservation, Progress toward Goal/Update tx plan , Purpose of tx/functional activities, Safety issues, Use of adapted equipment Teaching Recipient: Patient Teaching Methods: Demonstration, Discussion Response to Teaching: Verbalize Understanding, Return Demonstration OT Short Term Goals Short Term Goals Transfers (B,C,W/C) (FIM): 6 1=Demonstrate adherence to instructed precautions during ADL tasks. 2=Patient will verbalize/demonstrate understanding of assistive devices/ modifications for ADL. 3=Patient will improve strength/tolerance for activity to enable patient to perform ADL's. OT Rn Security Goals Rn Security Goals Time Frame: August 26, 2018 Eating (FIM): 6 Eating (QC): 6 Groomin Oral Hygiene (QC): 6 Bathing(FIM): 6 Shower/Bathe Self (QC): 6 Upper Body Dressing(FIM): 6 Upper Body Dressing (QC): 6 Lower Body Dressing(FIM): 6 Lower Body Dressing (QC): 6 On/Off Footwear (QC): 6 Toileting(FIM): 6 Toileting Hygiene (QC): 6 Toilet/Commode Transfer(FIM): 6 Toilet/Commode Transfer (QC): 6 Shower Transfer(FIM): 6 Additional Goals: 1-Demonstrate ADL Tasks, 2-Verbalize Understanding, 3- ImproveStrength/[place]ore[place] 1=Demonstrate adherence to instructed precautions during ADL tasks. 2=Patient will verbalize/demonstrate understanding of assistive devices/ modifications for ADL. 3=Patient will improve strength/tolerance for activity to enable patient to perform ADL's. OT Education/Plan Problem List/Assessment Assessment: Decreased Activ Tolerance, Impaired Funct Balance, Impaired I ADL's Discharge Recommendations Plan/Recommendations: Continue POC Treatment Plan/Plan of Care Treatment,Training & Education: Yes Patient would benefit from OT for education, treatment and training to promote independence in ADL's, mobility, safety and/or upper extremity function for ADL' s. Plan of Care: ADL Retraining, Functional Mobility, Group Exercise/Act as Ind, UE Funct Exercise/Act Treatment Duration: August 26, 2018 Frequency: At least 5 of 7 days/Wk (IRF) Estimated Hrs Per Day: 1.5 hours per day Rehab Potential: Fair Time/GCodes Start Time: 08:00 Stop Time: 09:00 Billed Treatment Time FA 60 minutes, 4 units RUDDY JO OT August 12, 2018 12:08
--- NOTE | 2018-08-12 14:35 | Therapy Group Daily Note ---
Therapy Daily Group Note Patient Education Topic Home Safety, Other List Below (ARU description/expectations) Exercises LE Seated Exercise, UE Exercise Session Ratio (pt:therapist): 3:1 Goal of Session: Education on ARU Expectations, Home Safety Strategies, UE/LE Strengthing Goal Met for this Session: Yes Pt Benefit of Group: Contributions to Others, F/U Use of Strategies @Home, Increased Functional Safety, Increased Functional Strength, Improved Cognition, Recognition of Peers, Socialization Other/Notes Pt ambulated to group with FWW. OT/PT group consisted of introductions (name, place, break the ice questions), socialization, ARU description/expectation, UE/ LE seat exercises and home safety eduction. Pt actively listened to peers and introduced self appropriately. Pt engaged in activities and was able to participate in exercises. Pt demonstrated good activity tolerance and strength with activities. Activities to engage core and work on dynamic sitting balance for daily functional tasks. Pt acknowledged understanding of educational topics by voicing questions and opinions. After therapy, pt lying in bed with call light/phone in reach. All needs met in room. Start Time: 13:00 Stop Time: 14:10 Total Billed Treatment Time: 70 Total Billed Treatment 1-GRP GALDINO SIGALA August 12, 2018 14:35
[2018-08-12 17:52] VITALS: BP 131/81
[2018-08-12] MEDS: CALCIUM CARBONATE 600 MG (CALCARB) TAB PO SCH (19:46)
[2018-08-12] MEDS: ATORVASTATIN 40 MG (LIPITOR) TABLET PO SCH (19:46)
[2018-08-12] MEDS: MELATONIN 3 MG TABLET PO PRN (21:57)
[2018-08-13] MEDS: PANTOPRAZOLE 40 MG (PROTONIX) TAB PO SCH (05:17)
[2018-08-13] MEDS: ceFAZolin 1,000 MG/SWFI 10 ML IV PUSH IV SCH ×6 (05:17→21:11)
[2018-08-13] MEDS: ASCORBIC ACID (VIT C) 500 MG TABLET PO SCH (05:17)
[2018-08-13 05:18] VITALS: BP 156/81
--- NOTE | 2018-08-13 08:39 | PM&R Progress Note ---
Subjective HPI/CC On Admission Date Seen by Provider: August 13, 2018 Time Seen by Provider: 08:15 CC: Bilateral hip surgical incisions abscess with cellulitis and subsequent debility HPI: This is a 52-year-old white female clinic patient of Dr. Coelho in [facility] who is known to me from prior surgeries at [facility] by Dr. Méndez who presented to inpatient rehab unit at [facility] due to severe debility following bilateral hip incision abscesses and cellulitis in need of 6 weeks of IV antibiotics of Ancef 500 mg IV every 8 hours after a PICC line placement in addition to severe debility following severe postoperative anemia due to acute blood loss with subsequent hemoglobin of 5.4 requiring 4 units of blood last week. She was placed on broad-spectrum antibiotics and culture revealed E. coli pansensitive so she will continue the IV antibiotics until completed and will participate in all therapies to strengthen in order to return back home independently after wound vacs are discontinued. Dr. Cantu is gracious enough to monitor the wound vacs while she is hospitalized at [facility] along with the wound care team. I checked her home medications , current hospital meds from [facility] and review my previous consultation. She was living independently alone without difficulty or use of assistive devices and will return back home with modified independent activities of daily living along with ambulation since she lives alone. Subjective/Events-last exam DC planned for Saturday IV antibiotics will continue for the full six weeks Right wound dressing was changed last night and that is doing well Change bowel regimen to prn Conferred with RN. Reviewed therapy notes. Review of Systems General: Fatigue Musculoskeletal: leg pain Objective Exam Vital Signs Vital Signs Date Time Temp Pulse Resp B/P (MAP) Pulse Ox O2 Delivery O2 Flow Rate FiO2 08/13/18 17:17 99.0 85 16 125/77 (93) 98 Room Air Capillary Refill : Less Than 3 Seconds General Appearance: No Apparent Distress, WD/WN, Chronically ill HEENT: PERRL/EOMI, TMs Normal, Normal ENT Inspection, Pharynx Normal, Moist Mucous Membranes Neck: Full Range of Motion, Normal Inspection, Non Tender, Supple Respiratory: Chest Non Tender, Lungs Clear, Normal Breath Sounds, No Accessory Muscle Use, No Respiratory Distress Cardiovascular: Regular Rate, Rhythm, No Edema, No Gallop, No JVD, No Murmur Gastrointestinal: Normal Bowel Sounds, No Organomegaly, No Pulsatile Mass, Non Tender, Soft Back: Normal Inspection, No CVA Tenderness, No Vertebral Tenderness Extremity: Normal Capillary Refill, Normal Inspection, Normal Range of Motion, Non Tender, No Calf Tenderness, No Pedal Edema Neurologic/Psychiatric: Alert, Oriented x3, Normal Mood/Affect, Motor Weakness (weakness lower legs 4/[address] bilateral thighs) Skin: Normal Color, Warm/Dry Lymphatic: No Adenopathy Results/Procedures Lab Patient resulted labs reviewed. FIM Transfers Therapy Code Descriptions/Definitions Functional [place] Measure: 0=Not Assessed/NA 4=Minimal Assistance 1=Total Assistance 5=Supervision or Setup 2=Maximal Assistance 6=Modified [place] 3=Moderate Assistance 7=Complete [place] Therapy Quality Codes: 6 Independent with activity with or without an assistive device 5 Patient requires set up or clean up by helper. Patient completes activity by themselves 4 Supervision or touching assist (CGA). [place] provide cues , steadying assist 3 The helper provides less than half the effort to complete the activity 2 The helper provides more than half the effort to complete the activity 1 Dependent. The helper does all the effort to complete an activity 7 Patient refused to complete or attempt activity 9 The patient did not perform the activity before the current illness or injury 88 Not attempted due to Medical conditions or safety concerns Mental Status/Objective Comprehension: 7 Expression: 7 Social Interaction: 7 Problem Solvin Memory: 7 ADL-Treatment Feedin (dentures ) Eating (QC): 6 Groomin (standing at sink. requried VC for hip precuations while placing items on floor. ) Oral Hygiene (QC): 4 Bathin (required cuing for hip precuations. pt educaition on long handled sponge. ) Bathing Location: L Arm, R Arm, L Upper Leg, R Upper Leg, L Lower Leg ( including foot), R Lower Leg (including foot), Chest, Abdomen, Buttocks, Perineal Area Shower/Bathe Self (QC): 4 Upper Extremity Dressin (pt demo ability to gather clothing from closet and donnshirt. ) Upper Body Dressing (QC): 5 Lower Extremity Dressin (pt requried VC fro hip precautions/ HIP kit set up ) Lower Body Dressing (QC): 4 On/Off Footwear (QC): 4 Toiletin Toileting Hygiene (QC): 4 Toilet/Commode Transfer: 5 Toilet Transfer (QC): 4 Shower: 0 (not completed secondary to wound vac) Assessment/Plan Assessment and Plan Assess & Plan/Chief Complaint Assessment: Bilateral hip incision abscesses with wound vacs in place and needs 6 weeks of abx with PICC line placement Debility Post op anemia hgb 5.4 s/p 4 units of blood 2 weeks ago now 10 but low iron placing on iron infusions OA HLP TBI Depression Anxiety Constipation x 7 days now resolved Plan: BM regimen aggressive type to maintain to prevent recurrent constipation Iron infusions Monitor pain PT/OT Home meds GERD Tx Appreciate psych eval Wound vacs DC now DC Saturday and will reach out to [place] to evaluate options for IV abx to complete 6 weeks since she will be going home (1) Incisional abscess (2) Constipation (3) Anxiety (4) Depression (5) Hyperlipidemia (6) Osteoarthritis (7) GERD (gastroesophageal reflux disease) (8) TBI (traumatic brain injury) (9) Postoperative anemia (10) Transfusion history (11) Status post hip replacement (12) Former smoker (13) Iron deficiency INGA MORFIN DO August 13, 2018 08:39
--- NOTE | 2018-08-13 08:51 | Physical Therapy Daily Note ---
PT Daily Note-Current Subjective Pt sitting at EOB. Pt agrees to PT. Pt anticipating D/C Saturday (08/15) Pain Numeric Pain Scale: 3 Location: Left Location Body Site: Hip Pain Description: Ache, Tightness Mental Status Patient Orientation: Person, Place, Time, Situation Transfers Therapy Code Descriptions/Definitions Functional [place] Measure: 0=Not Assessed/NA 4=Minimal Assistance 1=Total Assistance 5=Supervision or Setup 2=Maximal Assistance 6=Modified [place] 3=Moderate Assistance 7=Complete [place] Therapy Quality Codes: 6 Independent with activity with or without an assistive device 5 Patient requires set up or clean up by helper. Patient completes activity by themselves 4 Supervision or touching assist (CGA). [place] provide cues , steadying assist 3 The helper provides less than half the effort to complete the activity 2 The helper provides more than half the effort to complete the activity 1 Dependent. The helper does all the effort to complete an activity 7 Patient refused to complete or attempt activity 9 The patient did not perform the activity before the current illness or injury 88 Not attempted due to Medical conditions or safety concerns Scootin Sit to/from Stand: 6 Sit to Stand (QC): 6 Weight Bearing Right Lower Extremity: Right Weight Bearing/Tolerated Left Lower Extremity: Left Weight Bearing/Tolerated Gait Training Does the Patient Walk?: Yes Gait (FIM): 6 Distance (FIM): 3=150 ft Distance: 150' Walk 10 feet (QC): 6 Walk 50 ft with 2 Turns(QC): 6 Walk 150 ft (QC): 6 Gait Level of Assist: 6 Gait Persons Needed: 1 Gait Assistive Device: FWW Wheelchair Training Does the Pt Use a Wheelchair?: No Exercises Standing: Hamstring curls, Heel/toe raises, 3 way Ex=Flex, Abd, Ext, Marching, Mini squats, Weight shifts Standing Reps: 15 Treatments Pt transfers from bed and ambulates in hallway using FWW. Pt completes Standing Ex at //bars, RB as needed. Pt ambulates back to room to use restroom and rest. Pt has all needs met at end of tx. Assessment Current Status: Good Progress Pt tolerates tx well and will continue to improve as pt's wounds heal. PT Short Term Goals Short Term Goals Time Frame: August 12, 2018 Transfers (B,C,W/C) (FIM): 6 Gait (FIM): 6 Gait Distance Comment: 150' Gait Level of Assist: 6 Gait Assistive Device: FWW PT Yard Associate Goals Yard Associate Goals PT Yard Associate Goals Time Frame: August 26, 2018 Transfers (B,C,W/C) (FIM): 6 Sit to Lying (QC): 6 Lying-Sitting on Side/Bed(QC): 6 Sit to Stand (QC): 6 Rollin Roll Left to Right (QC): 6 Chair/Hpp-gc-Jtaat Xfer(QC): 6 Car Transfer (QC): 6 Gait (FIM): 6 Distance: 300' Walk 10 feet (QC): 6 Walk 10ft-Uneven Surface(QC): 6 Walk 50ft with 2 Turns (QC): 6 Walk 150 ft (QC): 6 Gait Level of Assist: 6 Gait Assistive Device: FWW Stairs (FIM): 2 # of Steps: 4 1 Step (curb) (QC): 4 4 Steps (QC): 4 Stairs Level Of Assist: 5 PT Plan Problem List Problem List: Activity Tolerance Treatment/Plan Treatment Plan: Continue Plan of Care Treatment Plan: Bed Mobility, Education, Functional Activity [place], Functional Strength, Group Therapy, Gait, Safety, Therapeutic Exercise, Transfers Treatment Duration: August 26, 2018 Frequency: At least 5 of 7 days/Wk (IRF) Estimated Hrs Per Day: 1.5 hours per day Patient and/or Family Agrees t: Yes Safety Risks/Education Patient Education: Gait Training, Correct Positioning, Safety Issues Teaching Recipient: Patient Teaching Methods: Discussion Response to Teaching: Verbalize Understanding Time/GCodes Time In: 800 Time Out: 845 Total Billed Treatment Time: 45 Total Billed Treatment 1, GT (15m), FA (15m) & EX (15m) G Codes Necessary: NIDHI Carey SOFTWARE SALES REPRESENTATIVE August 13, 2018 08:51
[2018-08-13] MEDS: SENNA W/DOCUSATE (SENOKOT S) TABLET PO SCH ×2 (08:56→20:46)
[2018-08-13] MEDS: GABAPENTIN 600 MG (NEURONTIN) TAB PO SCH ×3 (08:56→21:10)
[2018-08-13] MEDS: clonazePAM 0.5 MG (KlonoPIN) TAB PO SCH ×3 (08:56→21:10)
[2018-08-13] MEDS: FLUoxetine HCL 20 MG (PROzac) CAP PO SCH (08:56)
[2018-08-13] MEDS: IRON SUCROSE 200 MG/10 ML (VENOFER) VIAL IV SCH (08:56)
[2018-08-13] MEDS: ASPIRIN E.C. 81 MG (ECOTRIN) TAB PO SCH (08:57)
[2018-08-13] MEDS: MELOXICAM 7.5 MG (MOBIC) TABLET PO SCH ×2 (08:57→21:11)
[2018-08-13] MEDS: HYDROcodone/APAP 7.5 MG/325 MG (LORTAB, LORCET PLUS) TABLET PO PRN ×3 (08:58→21:23)
[2018-08-13] MEDS: LACTULOSE SYRUP 10GM/15ML (ENULOSE) 30ML UDC PO SCH ×2 (09:00→20:46)
[2018-08-13] MEDS: POLYETHYLENE GLYCOL 17 GM (MIRALAX) PACK PO SCH ×2 (09:00→20:46)
[2018-08-13] MEDS: BISACODYL 10 MG SUPP (DULCOLAX) PR SCH ×2 (09:00→21:03)
--- NOTE | 2018-08-13 10:32 | Occupational Ther Daily Note ---
OT Current Status-Daily Note Subjective Pt. reports 5/10 pain bilateral hips. Nursing gives pt. pain medication. Appearance Pt. up in chair. Agrees to shower. Mental Status/Objective Patient Orientation: Person, Place, Time, Situation Therapy Code Descriptions/Definitions Functional [place] Measure: 0=Not Assessed/NA 4=Minimal Assistance 1=Total Assistance 5=Supervision or Setup 2=Maximal Assistance 6=Modified [place] 3=Moderate Assistance 7=Complete [place] Attachments: IV ADL-Treatment Therapy Code Descriptions/Definitions Functional [place] Measure: 0=Not Assessed/NA 4=Minimal Assistance 1=Total Assistance 5=Supervision or Setup 2=Maximal Assistance 6=Modified [place] 3=Moderate Assistance 7=Complete [place] Therapy Quality Codes: 6 Independent with activity with or without an assistive device 5 Patient requires set up or clean up by helper. Patient completes activity by themselves 4 Supervision or touching assist (CGA). [place] provide cues , steadying assist 3 The helper provides less than half the effort to complete the activity 2 The helper provides more than half the effort to complete the activity 1 Dependent. The helper does all the effort to complete an activity 7 Patient refused to complete or attempt activity 9 The patient did not perform the activity before the current illness or injury 88 Not attempted due to Medical conditions or safety concerns Grooming (FIM): 6 Oral Hygiene (QC): 6 Bathing (FIM): 6 Shower/Bathe Self (QC): 6 Upper Body (FIM): 6 Upper Body Dressing (QC): 6 Lower Body Dressing (FIM): 6 Lower Body Dressing (QC): 6 On/Off Footwear (QC): 6 Toileting (FIM): 6 Toileting Hygiene (QC): 6 Transfers (B, C, W/C) (FIM): 6 Toilet/Commode Transfer (FIM): 6 Toilet Transfer (QC): 6 Shower Transfer(FIM): 6 Other Treatment Pt. agrees to treatment. Ambulated with walker and Mod I to closet to retrieve clothing. Transferred to shower and completed all ADLs with AE and Mod I. Pt. able to doff/don all clothing items safely. OT talked with pt. in depth regarding needs for home. Pt. does report that she is concerned about infection at home, and would like to have home health nurse change her dressings. Will pass this on. After ADLs, ambulated to therapy gym. Completed 10 minutes on armbike at mod resistance to increase overall strength and independence. Ambulated back to room with increased ambulation in dining area. Pt. states that she is pricing hip kits, and that she has a shower chair and walker for home. Pt. able to transfer to bed with Mod I. All needs met. Education OT Patient Education: Correct positioning, Exercise program, Modified ADL techniques, Progress toward Goal/Update tx plan, Purpose of tx/functional activities, Reviewed precautions, Rehab process, Transfer techniques Teaching Recipient: Patient Teaching Methods: Demonstration, Discussion Response to Teaching: Verbalize Understanding, Return Demonstration OT Short Term Goals Short Term Goals Transfers (B,C,W/C) (FIM): 6 1=Demonstrate adherence to instructed precautions during ADL tasks. 2=Patient will verbalize/demonstrate understanding of assistive devices/ modifications for ADL. 3=Patient will improve strength/tolerance for activity to enable patient to perform ADL's. OT Chcf Goals Dye Beck Reel Operator Goals Time Frame: August 26, 2018 Eating (FIM): 6 Eating (QC): 6 Groomin Oral Hygiene (QC): 6 Bathing(FIM): 6 Shower/Bathe Self (QC): 6 Upper Body Dressing(FIM): 6 Upper Body Dressing (QC): 6 Lower Body Dressing(FIM): 6 Lower Body Dressing (QC): 6 On/Off Footwear (QC): 6 Toileting(FIM): 6 Toileting Hygiene (QC): 6 Toilet/Commode Transfer(FIM): 6 Toilet/Commode Transfer (QC): 6 Shower Transfer(FIM): 6 Additional Goals: 1-Demonstrate ADL Tasks, 2-Verbalize Understanding, 3- ImproveStrength/[place] 1=Demonstrate adherence to instructed precautions during ADL tasks. 2=Patient will verbalize/demonstrate understanding of assistive devices/ modifications for ADL. 3=Patient will improve strength/tolerance for activity to enable patient to perform ADL's. OT Education/Plan Discharge Recommendations Plan/Recommendations: Continue POC Therapy D/C Recommendations: Home w/ Family Support Equpiment Recommendations-D/C: Hip Kit Treatment Plan/Plan of Care Treatment,Training & Education: Yes Patient would benefit from OT for education, treatment and training to promote independence in ADL's, mobility, safety and/or upper extremity function for ADL' s. Plan of Care: ADL Retraining, Functional Mobility, Group Exercise/Act as Ind, UE Funct Exercise/Act Treatment Duration: August 26, 2018 Frequency: At least 5 of 7 days/Wk (IRF) Estimated Hrs Per Day: 1.5 hours per day Agreement: Yes Rehab Potential: Good Time/GCodes Start Time: 08:45 Stop Time: 10:15 Total Time Billed (hr/min): 90 Billed Treatment Time 1, ADL x 60minutes, Ex x 30minutes HONEY REY OT August 13, 2018 10:32
--- NOTE | 2018-08-13 16:03 | Physical Therapy Daily Note ---
PT Daily Note-Current Subjective Pt sitting at EOB upon arrival. Pt agrees to PT. Pain Numeric Pain Scale: 3 Location: Left Location Body Site: Hip Pain Description: Ache, Tightness Mental Status Patient Orientation: Person, Place, Time, Situation Transfers Therapy Code Descriptions/Definitions Functional [place] Measure: 0=Not Assessed/NA 4=Minimal Assistance 1=Total Assistance 5=Supervision or Setup 2=Maximal Assistance 6=Modified [place] 3=Moderate Assistance 7=Complete [place] Therapy Quality Codes: 6 Independent with activity with or without an assistive device 5 Patient requires set up or clean up by helper. Patient completes activity by themselves 4 Supervision or touching assist (CGA). [place] provide cues , steadying assist 3 The helper provides less than half the effort to complete the activity 2 The helper provides more than half the effort to complete the activity 1 Dependent. The helper does all the effort to complete an activity 7 Patient refused to complete or attempt activity 9 The patient did not perform the activity before the current illness or injury 88 Not attempted due to Medical conditions or safety concerns Transfers (B, C, W/C) (FIM): 6 Scootin Rollin Roll Left to Right (QC): 6 Supine to/from Sit: 6 Sit to/from Stand: 6 Sit to Lying (QC): 6 Sit to Stand (QC): 6 Chair/Elw-jr-Vbqvw Xfer(QC): 6 Bed to/from Chair: 6 Car Transfer (QC): 6 Weight Bearing Right Lower Extremity: Right Weight Bearing/Tolerated Left Lower Extremity: Left Weight Bearing/Tolerated Gait Training Does the Patient Walk?: Yes Gait (FIM): 6 Distance (FIM): 3=150 ft Distance: 350' Walk 10 feet (QC): 6 Walk 50 ft with 2 Turns(QC): 6 Walk 150 ft (QC): 6 Walking 10ft/uneven surface-QC: 6 Gait Level of Assist: 6 Gait Persons Needed: 1 Gait Assistive Device: FWW Pt fatigues at end of walk and needs RB. Wheelchair Training Does the Pt Use a Wheelchair?: No Stair Training Stair Training: Handrails/: 2 handrails Stairs (FIM): 6 #of Steps: 12 1 Step (curb) (QC): 6 4 Steps (QC): 6 12 Steps (QC): 6 Stairs: Pattern: Step to Level of Assist: 6 Balance Picking up an Object (QC): 88 Special Test Comments Pt does not attempt due to protection of B hips. Exercises Seated Therapy Exercises: Ankle pumps, Long arc quads, Hip flexion, Kicking activity, Hip abd/add Seated Reps: 20 Treatments Pt completes items for FIM scoring including bed mobility, transfers including car transfers & ambulation including across varying surface. Pt returns to room at end of tx to rest with all needs met. Assessment Current Status: Good Progress Pt fatigues at end of walk. Pt is excited to D/C Saturday (08/15). PT Short Term Goals Short Term Goals Time Frame: August 12, 2018 Transfers (B,C,W/C) (FIM): 6 Gait (FIM): 6 Gait Distance Comment: 150' Gait Level of Assist: 6 Gait Assistive Device: FWW PT Custodial Goals Custodial Goals PT Ophthalmic Medical Assistant Goals Time Frame: August 26, 2018 Transfers (B,C,W/C) (FIM): 6 Sit to Lying (QC): 6 Lying-Sitting on Side/Bed(QC): 6 Sit to Stand (QC): 6 Rollin Roll Left to Right (QC): 6 Chair/Ufk-qv-Hjovp Xfer(QC): 6 Car Transfer (QC): 6 Gait (FIM): 6 Distance: 300' Walk 10 feet (QC): 6 Walk 10ft-Uneven Surface(QC): 6 Walk 50ft with 2 Turns (QC): 6 Walk 150 ft (QC): 6 Gait Level of Assist: 6 Gait Assistive Device: FWW Stairs (FIM): 2 # of Steps: 4 1 Step (curb) (QC): 4 4 Steps (QC): 4 Stairs Level Of Assist: 5 PT Plan Problem List Problem List: Activity Tolerance Treatment/Plan Treatment Plan: Continue Plan of Care Treatment Plan: Bed Mobility, Education, Functional Activity [place], Functional Strength, Group Therapy, Gait, Safety, Therapeutic Exercise, Transfers Treatment Duration: August 26, 2018 Frequency: At least 5 of 7 days/Wk (IRF) Estimated Hrs Per Day: 1.5 hours per day Patient and/or Family Agrees t: Yes Safety Risks/Education Patient Education: Gait Training, Transfer Techniques, Steps, Correct Positioning, Safety Issues Teaching Recipient: Patient Teaching Methods: Discussion Response to Teaching: Verbalize Understanding Time/GCodes Time In: 1400 Time Out: 1445 Total Billed Treatment Time: 45 Total Billed Treatment 1, FA x2 (30m) & GT (15m) G Codes Necessary: NIDHI Carey LIDAR TECHNICIAN August 13, 2018 16:03
--- NOTE | 2018-08-13 17:00 | NUR ---
Report received from Belinda MCFARLAND. Pt resting in bed at this time. No apparent distress.
[2018-08-13 17:17] VITALS: BP 125/77
[2018-08-13] MEDS: ATORVASTATIN 40 MG (LIPITOR) TABLET PO SCH (21:10)
[2018-08-13] MEDS: CALCIUM CARBONATE 600 MG (CALCARB) TAB PO SCH (21:10)
--- NOTE | 2018-08-13 21:35 | NUR ---
345p-to be met with patient to review team conference summary. As patient is performing mod I with all therapy activities and Yen wound VAC has been removed, team recommends patient proceed with discharge on Saturday. Patient was hopeful for this date as well. patient did express concerns regarding home wound care, as she has battled with incisional infections when caring for wound at home. Patient does state that she previously did not use gloves for dressing changes and was concerned about Hair and debris entering what and. Patient states she will now utilize gloves and Has been removed from the home. She also states that her [id number] who resides near could provide assistance as needed. CHECKOUT SUPERVISOR received clarification on home IV antibiotic on a regimen, patient will transition to Ancef 2 g daily rather than previous regimen of pink-yellow and Ancef. CHECKOUT SUPERVISOR sent updated medication regimen to [facility] home infusion to ensure proper antibiotic is still impaired. CHECKOUT SUPERVISOR requested antibiotic be delivered to patients home by 1 p.m. on day of discharge. Patient states ex- can provide transport home in the morning on 08/15 patient is eager to return home and expresses no concerns. CHECKOUT SUPERVISOR reviewed IMM and patient choice letter for [facility], as patient previously chose this provider.
[2018-08-14] MEDS: HYDROcodone/APAP 7.5 MG/325 MG (LORTAB, LORCET PLUS) TABLET PO PRN ×4 (02:58→20:15)
[2018-08-14 04:34] VITALS: BP 116/69
[2018-08-14] MEDS: PANTOPRAZOLE 40 MG (PROTONIX) TAB PO SCH (05:43)
[2018-08-14] MEDS: ASCORBIC ACID (VIT C) 500 MG TABLET PO SCH (05:43)
[2018-08-14] MEDS: ceFAZolin 1,000 MG/SWFI 10 ML IV PUSH IV SCH ×2 (05:44)
[2018-08-14] MEDS: MELOXICAM 7.5 MG (MOBIC) TABLET PO SCH ×2 (08:21→20:15)
[2018-08-14] MEDS: GABAPENTIN 600 MG (NEURONTIN) TAB PO SCH ×3 (08:21→20:14)
[2018-08-14] MEDS: FLUoxetine HCL 20 MG (PROzac) CAP PO SCH (08:22)
[2018-08-14] MEDS: clonazePAM 0.5 MG (KlonoPIN) TAB PO SCH ×3 (08:22→20:14)
[2018-08-14] MEDS: ASPIRIN E.C. 81 MG (ECOTRIN) TAB PO SCH (08:22)
--- NOTE | 2018-08-14 08:57 | PM&R Progress Note ---
Subjective HPI/CC On Admission Date Seen by Provider: August 14, 2018 Time Seen by Provider: 08:45 CC: Bilateral hip surgical incisions abscess with cellulitis and subsequent debility HPI: This is a 52-year-old white female clinic patient of Dr. Coelho in [facility] who is known to me from prior surgeries at [facility] by Dr. Méndez who presented to inpatient rehab unit at [facility] due to severe debility following bilateral hip incision abscesses and cellulitis in need of 6 weeks of IV antibiotics of Ancef 500 mg IV every 8 hours after a PICC line placement in addition to severe debility following severe postoperative anemia due to acute blood loss with subsequent hemoglobin of 5.4 requiring 4 units of blood last week. She was placed on broad-spectrum antibiotics and culture revealed E. coli pansensitive so she will continue the IV antibiotics until completed and will participate in all therapies to strengthen in order to return back home independently after wound vacs are discontinued. Dr. Cantu is gracious enough to monitor the wound vacs while she is hospitalized at [facility] along with the wound care team. I checked her home medications , current hospital meds from [facility] and review my previous consultation. She was living independently alone without difficulty or use of assistive devices and will return back home with modified independent activities of daily living along with ambulation since she lives alone. Subjective/Events-last exam Discharge planned for tomorrow IV antibiotics with home health will be initiated Denies any leg pain that is not controlled on pain meds Overall doing very well Participating in therapies Conferred with RN. Reviewed therapy notes. Updated Dr Turcios and he wants sutures left in until he sees her Review of Systems Musculoskeletal: leg pain Objective Exam Vital Signs Vital Signs Date Time Temp Pulse Resp B/P (MAP) Pulse Ox O2 Delivery O2 Flow Rate FiO2 08/14/18 16:51 97.8 84 16 108/70 (83) 96 Room Air Capillary Refill : Less Than 3 Seconds General Appearance: No Apparent Distress, WD/WN, Chronically ill HEENT: PERRL/EOMI, TMs Normal, Normal ENT Inspection, Pharynx Normal, Moist Mucous Membranes Neck: Full Range of Motion, Normal Inspection, Non Tender, Supple Respiratory: Chest Non Tender, Lungs Clear, Normal Breath Sounds, No Accessory Muscle Use, No Respiratory Distress Cardiovascular: Regular Rate, Rhythm, No Edema, No Gallop, No JVD, No Murmur Gastrointestinal: Normal Bowel Sounds, No Organomegaly, No Pulsatile Mass, Non Tender, Soft Back: Normal Inspection, No CVA Tenderness, No Vertebral Tenderness Extremity: Normal Capillary Refill, Normal Inspection, Normal Range of Motion, Non Tender, No Calf Tenderness, No Pedal Edema Neurologic/Psychiatric: Alert, Oriented x3, Normal Mood/Affect, Motor Weakness (weakness lower legs 4/[address] bilateral thighs) Skin: Normal Color, Warm/Dry Lymphatic: No Adenopathy Results/Procedures Lab Patient resulted labs reviewed. FIM Transfers Therapy Code Descriptions/Definitions Functional [place] Measure: 0=Not Assessed/NA 4=Minimal Assistance 1=Total Assistance 5=Supervision or Setup 2=Maximal Assistance 6=Modified [place] 3=Moderate Assistance 7=Complete [place] Therapy Quality Codes: 6 Independent with activity with or without an assistive device 5 Patient requires set up or clean up by helper. Patient completes activity by themselves 4 Supervision or touching assist (CGA). [place] provide cues , steadying assist 3 The helper provides less than half the effort to complete the activity 2 The helper provides more than half the effort to complete the activity 1 Dependent. The helper does all the effort to complete an activity 7 Patient refused to complete or attempt activity 9 The patient did not perform the activity before the current illness or injury 88 Not attempted due to Medical conditions or safety concerns Mental Status/Objective Comprehension: 7 Expression: 7 Social Interaction: 7 Problem Solvin Memory: 7 ADL-Treatment Feedin (dentures ) Eating (QC): 6 Groomin Oral Hygiene (QC): 6 Bathin Bathing Location: L Arm, R Arm, L Upper Leg, R Upper Leg, L Lower Leg ( including foot), R Lower Leg (including foot), Chest, Abdomen, Buttocks, Perineal Area Shower/Bathe Self (QC): 6 Upper Extremity Dressin Upper Body Dressing (QC): 6 Lower Extremity Dressin Lower Body Dressing (QC): 6 On/Off Footwear (QC): 6 Toiletin Toileting Hygiene (QC): 6 Toilet/Commode Transfer: 6 Toilet Transfer (QC): 6 Shower: 6 Assessment/Plan Assessment and Plan Assess & Plan/Chief Complaint Assessment: Bilateral hip incision abscesses with wound vacs in place and needs 6 weeks of abx with PICC line placement Debility Post op anemia hgb 5.4 s/p 4 units of blood 2 weeks ago now 10 but low iron placing on iron infusions OA HLP TBI Depression Anxiety Constipation x 7 days now resolved Plan: BM regimen aggressive type to maintain to prevent recurrent constipation Iron infusions Monitor pain PT/OT Home meds GERD Tx Appreciate psych eval Wound vacs DC now DC tomorrow on 30 more doses of Rocephin Updated Dr Turcios and will maintain sutures until she sees him (1) Incisional abscess (2) Constipation (3) Anxiety (4) Depression (5) Hyperlipidemia (6) Osteoarthritis (7) GERD (gastroesophageal reflux disease) (8) TBI (traumatic brain injury) (9) Postoperative anemia (10) Transfusion history (11) Status post hip replacement (12) Former smoker (13) Iron deficiency INGA MORFIN DO August 14, 2018 08:57
[2018-08-14] MEDS: BISACODYL 10 MG SUPP (DULCOLAX) PR SCH ×2 (09:00→20:17)
[2018-08-14] MEDS: SENNA W/DOCUSATE (SENOKOT S) TABLET PO SCH ×2 (09:00→20:16)
[2018-08-14] MEDS: POLYETHYLENE GLYCOL 17 GM (MIRALAX) PACK PO SCH ×2 (09:00→20:16)
[2018-08-14] MEDS: LACTULOSE SYRUP 10GM/15ML (ENULOSE) 30ML UDC PO SCH ×2 (09:00→20:16)
--- NOTE | 2018-08-14 10:06 | Physical Therapy Daily Note ---
PT Daily Note-Current Subjective Pt sitting in recliner upon arrival. Pt agrees to PT. Pain Numeric Pain Scale: 6 Location: Left Location Body Site: Hip Pain Description: Ache, Tightness Mental Status Patient Orientation: Person, Place, Time, Situation Transfers Therapy Code Descriptions/Definitions Functional [place] Measure: 0=Not Assessed/NA 4=Minimal Assistance 1=Total Assistance 5=Supervision or Setup 2=Maximal Assistance 6=Modified [place] 3=Moderate Assistance 7=Complete [place] Therapy Quality Codes: 6 Independent with activity with or without an assistive device 5 Patient requires set up or clean up by helper. Patient completes activity by themselves 4 Supervision or touching assist (CGA). [place] provide cues , steadying assist 3 The helper provides less than half the effort to complete the activity 2 The helper provides more than half the effort to complete the activity 1 Dependent. The helper does all the effort to complete an activity 7 Patient refused to complete or attempt activity 9 The patient did not perform the activity before the current illness or injury 88 Not attempted due to Medical conditions or safety concerns Transfers (B, C, W/C) (FIM): 6 Scootin Rollin Roll Left to Right (QC): 7 Supine to/from Sit: 6 Sit to/from Stand: 6 Sit to Lying (QC): 6 Sit to Stand (QC): 6 Chair/Xwf-fd-Letdm Xfer(QC): 6 Bed to/from Chair: 6 Car Transfer (QC): 6 Weight Bearing Right Lower Extremity: Right Weight Bearing/Tolerated Left Lower Extremity: Left Weight Bearing/Tolerated Gait Training Does the Patient Walk?: Yes Gait (FIM): 6 Distance (FIM): 3=150 ft Distance: 750+' Walk 10 feet (QC): 6 Walk 50 ft with 2 Turns(QC): 6 Walk 150 ft (QC): 6 Walking 10ft/uneven surface-QC: 6 Gait Level of Assist: 6 Gait Persons Needed: 1 Gait Assistive Device: FWW Pt sometimes needs occasional VC for safety but has not LOB during tx. Wheelchair Training Does the Pt Use a Wheelchair?: No Stair Training Stair Training: Handrails/: 2 handrails Stairs (FIM): 6 #of Steps: 12 1 Step (curb) (QC): 6 4 Steps (QC): 6 12 Steps (QC): 6 Stairs: Pattern: Step to Level of Assist: 6 Balance Picking up an Object (QC): 6 Treatments Pt completes extended walk in hallway and on main floor of hospital. Pt completes walking across varying surface, moving around in tight places safely. Pt completes FIM scoring items as indicated. Pt returns to room at end of tx with all needs met. Assessment Current Status: Good Progress Pt continues to make gains with safety and mobility, needing occasional RB for fatigue for extended walks. PT Short Term Goals Short Term Goals Time Frame: August 12, 2018 Transfers (B,C,W/C) (FIM): 6 Gait (FIM): 6 Gait Distance Comment: 150' Gait Level of Assist: 6 Gait Assistive Device: FWW PT White Metal Corrosion Proofer Goals White Metal Corrosion Proofer Goals PT White Metal Corrosion Proofer Goals Time Frame: August 26, 2018 Transfers (B,C,W/C) (FIM): 6 Sit to Lying (QC): 6 Lying-Sitting on Side/Bed(QC): 6 Sit to Stand (QC): 6 Rollin Roll Left to Right (QC): 6 Chair/Ogp-hc-Fyqyr Xfer(QC): 6 Car Transfer (QC): 6 Gait (FIM): 6 Distance: 300' Walk 10 feet (QC): 6 Walk 10ft-Uneven Surface(QC): 6 Walk 50ft with 2 Turns (QC): 6 Walk 150 ft (QC): 6 Gait Level of Assist: 6 Gait Assistive Device: FWW Stairs (FIM): 2 # of Steps: 4 1 Step (curb) (QC): 4 4 Steps (QC): 4 Stairs Level Of Assist: 5 PT Plan Problem List Problem List: Activity Tolerance Treatment/Plan Treatment Plan: Continue Plan of Care Treatment Plan: Bed Mobility, Education, Functional Activity Lorena, Functional Strength, Group Therapy, Gait, Safety, Therapeutic Exercise, Transfers Treatment Duration: August 26, 2018 Frequency: At least 5 of 7 days/Wk (IRF) Estimated Hrs Per Day: 1.5 hours per day Patient and/or Family Agrees t: Yes Safety Risks/Education Patient Education: Gait Training, Transfer Techniques, Correct Positioning, Safety Issues Teaching Recipient: Patient Teaching Methods: Discussion Response to Teaching: Verbalize Understanding Time/GCodes Time In: 800 Time Out: 900 Total Billed Treatment Time: 60 Total Billed Treatment 1, GT x2 (30m) & FA x2 (30m) G Codes Necessary: NIDHI Carey PTA August 14, 2018 10:06
--- NOTE | 2018-08-14 10:23 | Occupational Ther Daily Note ---
OT Current Status-Daily Note Subjective No pain reported. Pt. does state that she is very tired. Appearance Pt. in therapy gym resting after PT. Declines showering and ADLs but agrees to OT treatment. Mental Status/Objective Patient Orientation: Person, Place, Time, Situation Therapy Code Descriptions/Definitions Functional [place] Measure: 0=Not Assessed/NA 4=Minimal Assistance 1=Total Assistance 5=Supervision or Setup 2=Maximal Assistance 6=Modified [place] 3=Moderate Assistance 7=Complete [place] Attachments: IV Pt. states that she has to have her IV at home, and is concerned about keeping it dry during showers. ADL-Treatment Therapy Code Descriptions/Definitions Functional [place] Measure: 0=Not Assessed/NA 4=Minimal Assistance 1=Total Assistance 5=Supervision or Setup 2=Maximal Assistance 6=Modified [place] 3=Moderate Assistance 7=Complete [place] Therapy Quality Codes: 6 Independent with activity with or without an assistive device 5 Patient requires set up or clean up by helper. Patient completes activity by themselves 4 Supervision or touching assist (CGA). [place] provide cues , steadying assist 3 The helper provides less than half the effort to complete the activity 2 The helper provides more than half the effort to complete the activity 1 Dependent. The helper does all the effort to complete an activity 7 Patient refused to complete or attempt activity 9 The patient did not perform the activity before the current illness or injury 88 Not attempted due to Medical conditions or safety concerns Transfers (B, C, W/C) (FIM): 6 (Pt. is Mod I with walker to ambulate all over therapy dining area, onto elevator, to chapel, and back to therapy area. Pt. made up ad surya.) Pt. declines showering but agrees to OT. Completed 15 minutes on armbike at mod resistance for increased strength and endurance. Several rest breaks needed during this time. OT also went over popular [employer] with pt. to work on cognition during exercises. Pt. seemed to enjoy this. Donned 1 lb. wrist weights and completed fine motor task with therapy pegs and nuts/bolts activity. Pt. tolerated this but states that it made her tired. Ambulated to elevator with walker with Mod I. Pt. encouraged to push the buttons on her own , which she was able to do, as well as navigate the elevator with walker safely. Went to 1st floor and ambulate to chapel. Worked on sit-stand from low hard surface (chairs) without arms to push up from. Pt. had no difficulty with this, but does state that she is tired. Ambulated to entry way. Pt. reports that she is hot and so OT offers to go outside with her briefly. Pt. is able to manage going around entryway heavy mats. Noted good safety with walker. Stood outside briefly and then came back inside. Went back to elevator and back to therapy area. Rested a minute and then went to room. Pt. has been asked multiple times if she has any concerns for home, and if there is anything she would like to work on. Pt. states that she doesn't have concerns. States that she has already practiced laundry task and will have someone do her grocery shopping for her. All needs met. Education OT Patient Education: Correct positioning, Exercise program, Modified ADL techniques, Progress toward Goal/Update tx plan, Purpose of tx/functional activities, Reviewed precautions, Rehab process, Transfer techniques Teaching Recipient: Patient Teaching Methods: Demonstration, Discussion Response to Teaching: Verbalize Understanding, Return Demonstration OT Short Term Goals Short Term Goals Transfers (B,C,W/C) (FIM): 6 1=Demonstrate adherence to instructed precautions during ADL tasks. 2=Patient will verbalize/demonstrate understanding of assistive devices/ modifications for ADL. 3=Patient will improve strength/tolerance for activity to enable patient to perform ADL's. OT Dental Appliance Mechanic Goals [place] Goals Time Frame: August 26, 2018 Eating (FIM): 6 Eating (QC): 6 Groomin Oral Hygiene (QC): 6 Bathing(FIM): 6 Shower/Bathe Self (QC): 6 Upper Body Dressing(FIM): 6 Upper Body Dressing (QC): 6 Lower Body Dressing(FIM): 6 Lower Body Dressing (QC): 6 On/Off Footwear (QC): 6 Toileting(FIM): 6 Toileting Hygiene (QC): 6 Toilet/Commode Transfer(FIM): 6 Toilet/Commode Transfer (QC): 6 Shower Transfer(FIM): 6 Additional Goals: 1-Demonstrate ADL Tasks, 2-Verbalize Understanding, 3- ImproveStrength/[place] 1=Demonstrate adherence to instructed precautions during ADL tasks. 2=Patient will verbalize/demonstrate understanding of assistive devices/ modifications for ADL. 3=Patient will improve strength/tolerance for activity to enable patient to perform ADL's. OT Education/Plan Problem List/Assessment Assessment: Decreased Activ Tolerance Discharge Recommendations Plan/Recommendations: Continue POC Therapy D/C Recommendations: Home w/ Family Support Equpiment Recommendations-D/C: Hip Kit Treatment Plan/Plan of Care Treatment,Training & Education: Yes Patient would benefit from OT for education, treatment and training to promote independence in ADL's, mobility, safety and/or upper extremity function for ADL' s. Plan of Care: ADL Retraining, Functional Mobility, Group Exercise/Act as Ind, UE Funct Exercise/Act Treatment Duration: August 26, 2018 Frequency: At least 5 of 7 days/Wk (IRF) Estimated Hrs Per Day: 1.5 hours per day Agreement: Yes Rehab Potential: Good Time/GCodes Start Time: 09:00 Stop Time: 10:15 Total Time Billed (hr/min): 75 Billed Treatment Time 1, Ex x 30minutes, FA x 45minutes HONEY REY OT August 14, 2018 10:23
[2018-08-14] MEDS: cefTRIAXone 2,000 MG/SWFI 20 ML IV PUSH IV SCH ×2 (10:46)
--- NOTE | 2018-08-14 11:47 | Physical Therapy Daily Note ---
PT Daily Note-Current Subjective Patient in bed pre tx, agrees to PT, has 5-6/10 pain in both legs, asks nurse for pain meds and she says it is not time yet. Appearance Patient sitting EOB post tx with nurse call, phone, tray, all needs met. Mental Status Patient Orientation: Person, Place, Situation Transfers Therapy Code Descriptions/Definitions Functional [place] Measure: 0=Not Assessed/NA 4=Minimal Assistance 1=Total Assistance 5=Supervision or Setup 2=Maximal Assistance 6=Modified [place] 3=Moderate Assistance 7=Complete [place] Therapy Quality Codes: 6 Independent with activity with or without an assistive device 5 Patient requires set up or clean up by helper. Patient completes activity by themselves 4 Supervision or touching assist (CGA). [place] provide cues , steadying assist 3 The helper provides less than half the effort to complete the activity 2 The helper provides more than half the effort to complete the activity 1 Dependent. The helper does all the effort to complete an activity 7 Patient refused to complete or attempt activity 9 The patient did not perform the activity before the current illness or injury 88 Not attempted due to Medical conditions or safety concerns Transfers (B, C, W/C) (FIM): 6 Scootin Rollin Supine to/from Sit: 6 Sit to/from Stand: 6 Bed to/from Chair: 6 Weight Bearing Right Lower Extremity: Right Weight Bearing/Tolerated Left Lower Extremity: Left Weight Bearing/Tolerated Gait Training Gait (FIM): 6 Distance: 300'x2 Gait Level of Assist: 6 Gait Assistive Device: FWW Brisk, steady ambulation. Exercises Standing: Hip Abduction, Hamstring curls, Heel/toe raises, Marching, Mini squats, Step-ups (only 10 reps each side) Standing Reps: 15 Treatments bed mobility and transfers, ambulation, LE exercises Assessment Current Status: Fair Progress patient is mod I with all mobility PT Short Term Goals Short Term Goals Time Frame: August 12, 2018 Transfers (B,C,W/C) (FIM): 6 Gait (FIM): 6 Gait Distance Comment: 150' Gait Level of Assist: 6 Gait Assistive Device: FWW PT [facility] Goals Ems Helicopter Pilot Goals PT Ems Helicopter Pilot Goals Time Frame: August 26, 2018 Transfers (B,C,W/C) (FIM): 6 Sit to Lying (QC): 6 Lying-Sitting on Side/Bed(QC): 6 Sit to Stand (QC): 6 Rollin Roll Left to Right (QC): 6 Chair/Jaa-bh-Adtdo Xfer(QC): 6 Car Transfer (QC): 6 Gait (FIM): 6 Distance: 300' Walk 10 feet (QC): 6 Walk 10ft-Uneven Surface(QC): 6 Walk 50ft with 2 Turns (QC): 6 Walk 150 ft (QC): 6 Gait Level of Assist: 6 Gait Assistive Device: FWW Stairs (FIM): 2 # of Steps: 4 1 Step (curb) (QC): 4 4 Steps (QC): 4 Stairs Level Of Assist: 5 PT Plan Problem List Problem List: Activity Tolerance, Functional Strength, Safety, Balance, Gait, Transfer Treatment/Plan Treatment Plan: Continue Plan of Care Treatment Plan: Bed Mobility, Education, Functional Activity [place], Functional Strength, Group Therapy, Gait, Safety, Therapeutic Exercise, Transfers Treatment Duration: August 26, 2018 Frequency: At least 5 of 7 days/Wk (IRF) Estimated Hrs Per Day: 1.5 hours per day Patient and/or Family Agrees t: Yes Safety Risks/Education Patient Education: Gait Training, Transfer Techniques, Correct Positioning, Safety Issues Teaching Recipient: Patient Teaching Methods: Demonstration, Discussion Response to Teaching: Reinforcement Needed Time/GCodes Time In: 1115 Time Out: 1145 Total Billed Treatment Time: 30 Total Billed Treatment 1 visit EX 20' GT 10' MAGDALENE PERALTA PT August 14, 2018 11:47
--- NOTE | 2018-08-14 13:22 | Occupational Ther Daily Note ---
OT Current Status-Daily Note Subjective No pain reported. Appearance Pt. sitting on side of bed. Agrees to work with OT. Mental Status/Objective Patient Orientation: Person, Place Therapy Code Descriptions/Definitions Functional [place] Measure: 0=Not Assessed/NA 4=Minimal Assistance 1=Total Assistance 5=Supervision or Setup 2=Maximal Assistance 6=Modified [place] 3=Moderate Assistance 7=Complete [place] ADL-Treatment Therapy Code Descriptions/Definitions Functional [place] Measure: 0=Not Assessed/NA 4=Minimal Assistance 1=Total Assistance 5=Supervision or Setup 2=Maximal Assistance 6=Modified [place] 3=Moderate Assistance 7=Complete [place] Therapy Quality Codes: 6 Independent with activity with or without an assistive device 5 Patient requires set up or clean up by helper. Patient completes activity by themselves 4 Supervision or touching assist (CGA). [place] provide cues , steadying assist 3 The helper provides less than half the effort to complete the activity 2 The helper provides more than half the effort to complete the activity 1 Dependent. The helper does all the effort to complete an activity 7 Patient refused to complete or attempt activity 9 The patient did not perform the activity before the current illness or injury 88 Not attempted due to Medical conditions or safety concerns Transfers (B, C, W/C) (FIM): 6 Other Treatment Pt. states that she is tired. Agrees to ambulate for increased endurance and safety training. Ambulated with walker approximately 400 feet with Mod I. Sat to rest. All needs met. Education OT Patient Education: Correct positioning, Modified ADL techniques, Progress toward Goal/Update tx plan, Purpose of tx/functional activities, Reviewed precautions, Rehab process, Transfer techniques Teaching Recipient: Patient Teaching Methods: Demonstration, Discussion Response to Teaching: Verbalize Understanding, Return Demonstration OT Short Term Goals Short Term Goals Transfers (B,C,W/C) (FIM): 6 1=Demonstrate adherence to instructed precautions during ADL tasks. 2=Patient will verbalize/demonstrate understanding of assistive devices/ modifications for ADL. 3=Patient will improve strength/tolerance for activity to enable patient to perform ADL's. OT Facilities Project Manager Goals Facilities Project Manager Goals Time Frame: August 26, 2018 Eating (FIM): 6 Eating (QC): 6 Groomin Oral Hygiene (QC): 6 Bathing(FIM): 6 Shower/Bathe Self (QC): 6 Upper Body Dressing(FIM): 6 Upper Body Dressing (QC): 6 Lower Body Dressing(FIM): 6 Lower Body Dressing (QC): 6 On/Off Footwear (QC): 6 Toileting(FIM): 6 Toileting Hygiene (QC): 6 Toilet/Commode Transfer(FIM): 6 Toilet/Commode Transfer (QC): 6 Shower Transfer(FIM): 6 Additional Goals: 1-Demonstrate ADL Tasks, 2-Verbalize Understanding, 3- ImproveStrength/[place] 1=Demonstrate adherence to instructed precautions during ADL tasks. 2=Patient will verbalize/demonstrate understanding of assistive devices/ modifications for ADL. 3=Patient will improve strength/tolerance for activity to enable patient to perform ADL's. OT Education/Plan Problem List/Assessment Assessment: Decreased Activ Tolerance Discharge Recommendations Plan/Recommendations: Continue POC Therapy D/C Recommendations: Home w/ Family Support Equpiment Recommendations-D/C: Hip Kit Treatment Plan/Plan of Care Treatment,Training & Education: Yes Patient would benefit from OT for education, treatment and training to promote independence in ADL's, mobility, safety and/or upper extremity function for ADL' s. Plan of Care: ADL Retraining, Functional Mobility, Group Exercise/Act as Ind, UE Funct Exercise/Act Treatment Duration: August 26, 2018 Frequency: At least 5 of 7 days/Wk (IRF) Estimated Hrs Per Day: 1.5 hours per day Agreement: Yes Rehab Potential: Good Time/GCodes Start Time: 13:00 Stop Time: 13:15 Total Time Billed (hr/min): 15 Billed Treatment Time 1, HONEY AVILA OT August 14, 2018 13:21
--- NOTE | 2018-08-14 13:29 | D/C HH Face to Face Order ---
D/C Face to Face Orders Instructions for Patient [place], [place] Patient Instructions/FollowUp: Dr Turcios as scheduled Dr Laquita ArmentaMIAMI, [place] Physician to follow Patient: Dr Mendoza Discharge Diet for Home: No Restrictions Patient Problems: Bilateral hip incision E coli abscesses Goals for Patient: Complete IV abx and complete healing of incisions Patient Data-Allergies,Ht & Wt Patient Allergies: Coded Allergies: promethazine (Verified Allergy, Severe, Rash, 08/04/18) Penicillins (Verified Allergy, Intermediate, Hives, 08/04/18) Height (Feet): 5 Height (Inches): 5.00 Weight (Pounds): 216 Weight (Ounces): 0.5 Home Health Need/Face to Face Date of Face to Face: August 14, 2018 Clinical Findings: Instability, Muscle weakness I have seen Pt [id number]: Yes Discharged To: Home Diagnosis/Conditions: Bilateral hip incision E coli abscesses Patient is Homebound due to: [place]ela fall risk due to instabilty, Muscle weakness Homebound Status Due to the above stated illness, injury or surgical procedure (medical condition or diagnosis) and associated clinical findings, the patient is homebound because of his/her inability to leave home except with aid of a supportive device and/or person AND leaving the home requires a considerable and taxing effort or is medically contraindicated. Pt req the following assistanc: Walker Home Health Nursing Orders Home Health Services Order: Nursing Services (three times a week for wound care and IV antibiotic oversight) Home Health Infusion Therapy Line Start Date: Aug 05, 2018 Certify Stmt I certify that this patient is under my care and that I, a nurse practitioner or a physician; a field research assistant working with me, had a face to face encounter that - meets the physician face to face encounter requirements with this patient as dated. INGA MORFIN DO August 14, 2018 13:29
[2018-08-14] MEDS ORDERED: CEFT2FRO2 IV (13:30)
--- NOTE | 2018-08-14 14:30 | NUR ---
Wound Care NurseAamir at bedside to assist in dressing changes and patient teaching. In preperation to go home, patient observed dressing change of right leg and performed change of left leg dressing. Patient did well, asked appropriate questions, which were answered. Hand Hygiene, gloving, and cross contamination awareness discussed.
[2018-08-14 16:51] VITALS: BP 108/70
[2018-08-14] MEDS: ATORVASTATIN 40 MG (LIPITOR) TABLET PO SCH (20:14)
[2018-08-14] MEDS: CALCIUM CARBONATE 600 MG (CALCARB) TAB PO SCH (20:15)
[2018-08-15] MEDS: ASCORBIC ACID (VIT C) 500 MG TABLET PO SCH (05:47)
[2018-08-15] MEDS: PANTOPRAZOLE 40 MG (PROTONIX) TAB PO SCH (05:47)
[2018-08-15 06:00] LABS: BASOPHILS # (AUTO) 0.1 10^3/uL (0.0-0.1); BASOPHILS % (AUTO) 1 % (0-10); EOSINOPHILS # (AUTO) 0.3 10^3/uL (0.0-0.3); EOSINOPHILS % (AUTO) 5 % (0-10); HEMATOCRIT 34 % (35-52); HEMOGLOBIN 10.7 G/DL (11.5-16.0); LYMPHOCYTES # (AUTO) 2.4 X 10^3 (1.0-4.0); LYMPHOCYTES % (AUTO) 42 % (12-44); MEAN CORPUSCULAR HEMOGLOBIN 29 PG (25-34); MEAN CORPUSCULAR HGB CONC 32 G/DL (32-36); MEAN CORPUSCULAR VOLUME 92 FL (80-99); MEAN PLATELET VOLUME 9.5 FL (7.4-10.4); MONOCYTES # (AUTO) 0.4 X 10^3 (0.0-1.0); MONOCYTES % (AUTO) 7 % (0-12); NEUTROPHILS # (AUTO) 2.5 X 10^3 (1.8-7.8); NEUTROPHILS % (AUTO) 45 % (42-75); PLATELET COUNT 321 10^3/uL (130-400); WHITE BLOOD COUNT 5.6 10^3/uL (4.3-11.0)
[2018-08-15 06:12] VITALS: BP 124/73
[2018-08-15 06:22] LABS: ALANINE AMINOTRANSFERASE 9 U/L (0-55); ALBUMIN 3.5 GM/DL (3.2-4.5); ALKALINE PHOSPHATASE 160 U/L (40-136); BILIRUBIN,TOTAL 0.3 MG/DL (0.1-1.0); BUN/CREATININE RATIO 14; CALCIUM 9.4 MG/DL (8.5-10.1); CARBON DIOXIDE 22 MMOL/L (21-32); CHLORIDE 109 MMOL/L (98-107); CREATININE SERUM 0.79 MG/DL (0.60-1.30); GFR ESTIMATED > 60; GLUCOSE 111 MG/DL (70-105); POTASSIUM 4.2 MMOL/L (3.6-5.0); SODIUM 141 MMOL/L (135-145); TOTAL PROTEIN 6.3 GM/DL (6.4-8.2)
[2018-08-15] MEDS: LACTULOSE SYRUP 10GM/15ML (ENULOSE) 30ML UDC PO SCH (07:45)
[2018-08-15] MEDS: SENNA W/DOCUSATE (SENOKOT S) TABLET PO SCH (07:46)
[2018-08-15] MEDS: BISACODYL 10 MG SUPP (DULCOLAX) PR SCH (07:46)
[2018-08-15] MEDS: POLYETHYLENE GLYCOL 17 GM (MIRALAX) PACK PO SCH (07:46)
[2018-08-15] MEDS: FLUoxetine HCL 20 MG (PROzac) CAP PO SCH (08:22)
[2018-08-15] MEDS: IRON SUCROSE 200 MG/10 ML (VENOFER) VIAL IV SCH (08:22)
[2018-08-15] MEDS: MELOXICAM 7.5 MG (MOBIC) TABLET PO SCH (08:22)
[2018-08-15] MEDS: clonazePAM 0.5 MG (KlonoPIN) TAB PO SCH (08:22)
[2018-08-15] MEDS: HYDROcodone/APAP 7.5 MG/325 MG (LORTAB, LORCET PLUS) TABLET PO PRN (08:22)
[2018-08-15] MEDS: cefTRIAXone 2,000 MG/SWFI 20 ML IV PUSH IV SCH ×2 (08:22)
[2018-08-15] MEDS: GABAPENTIN 600 MG (NEURONTIN) TAB PO SCH (08:22)
[2018-08-15] MEDS: ASPIRIN E.C. 81 MG (ECOTRIN) TAB PO SCH (08:23)
[2018-08-15] MEDS ORDERED: TRAM50TA2 PO (09:09)
[2018-08-15] MEDS ORDERED: HYDR-34 PO (09:09)
[2018-08-15] MEDS ORDERED: CLON0.5T13 PO (09:09)
--- NOTE | 2018-08-15 09:10 | Discharge Summary ---
Diagnosis/Chief Complaint Date of Admission Aug 04, 2018 at 15:51 Date of Discharge Discharge Date: August 15, 2018 Discharge Diagnosis Assessment: Bilateral hip incision abscesses with wound vacs in place and needs 6 weeks of abx with PICC line placement Debility Post op anemia hgb 5.4 s/p 4 units of blood 2 weeks ago now 10 but low iron placing on iron infusions OA HLP TBI Depression Anxiety Constipation x 7 days now resolved Plan: BM regimen aggressive type to maintain to prevent recurrent constipation Iron infusions Monitor pain PT/OT Home meds GERD Tx Appreciate psych eval Wound vacs DC now DC tomorrow on 30 more doses of Rocephin Updated Dr Turcios and will maintain sutures until she sees him Discharge Summary Discharge Physical Examination Allergies: Coded Allergies: promethazine (Verified Allergy, Severe, Rash, 08/04/18) Penicillins (Verified Allergy, Intermediate, Hives, 08/04/18) Vitals & I&Os Vital Signs Date Time Temp Pulse Resp B/P (MAP) Pulse Ox O2 Delivery O2 Flow Rate FiO2 08/15/18 11:00 89 18 124/73 94 Room Air 08/15/18 06:12 98.2 General Appearance: Alert, Oriented X3, Cooperative HEENT: Atraumatic, PERRLA Respiratory: Clear to Auscultation, Normal Air Movement Cardiovascular: Regular Rate, Normal S1, Normal S2 Abdominal: Normal Bowel Sounds, Soft Neuro: Normal Gait, Normal Speech, Strength at 5/5 X4 Ext Psych/Mental Status: Mental Status NL, Mood NL Hospital Course Was the Problem List Reviewed?: Yes Hospital course: patient had an uncomplicated hospital course for 12 days after transferring from [facility] with bilateral hip incision wound vacs due to cellulitis and abscess formation with E coli. Ancef maintained without side effects. PICC line was placed and bowel function returned back to normal after multiple meds. Labs remained stable and Dr Cantu was able to DC wound vac and apply simple dressing. Rocephin was initiated for ease of once daily infusion for 30 more doses and she will have HH and wound care evaluation and have close f/u with Dr Turcios and Dr Turcios was updated. Labs (last 24 hrs) Laboratory Tests 08/05/18 05:54: White Blood Count 6.3, Red Blood Count 3.68L, Hemoglobin 10.3L, Hematocrit 32L, Mean Corpuscular Volume 87, Mean Corpuscular Hemoglobin 28, Mean Corpuscular Hemoglobin Concent 32, Red Cell Distribution Width 18.0H, Platelet Count 298, Mean Platelet Volume 9.5, Neutrophils (%) (Auto) 56, Lymphocytes (%) (Auto) 34, Monocytes (%) (Auto) 6, Eosinophils (%) (Auto) 4, Basophils (%) (Auto) 1, Neutrophils # (Auto) 3.5, Lymphocytes # (Auto) 2.2, Monocytes # (Auto) 0.4, Eosinophils # (Auto) 0.2, Basophils # (Auto) 0.0, Sodium Level 140, Potassium Level 3.6, Chloride Level 109H, Carbon Dioxide Level 21, Anion Gap 10, Blood Urea Nitrogen 8, Creatinine 0.73, Estimat Glomerular Filtration Rate > 60, BUN/ Creatinine Ratio 11, Glucose Level 103, Calcium Level 8.7, Corrected Calcium 9.6 , Iron Level 29L, Total Bilirubin 0.5, Aspartate Amino Transf (AST/SGOT) 61H, Alanine Aminotransferase (ALT/SGPT) 32, Alkaline Phosphatase 115, Total Protein 5.3L, Albumin 2.9L 08/08/18 06:20: White Blood Count 8.3, Red Blood Count 3.65L, Hemoglobin 10.4L, Hematocrit 33L, Mean Corpuscular Volume 90, Mean Corpuscular Hemoglobin 29, Mean Corpuscular Hemoglobin Concent 32, Red Cell Distribution Width 17.6H, Platelet Count 399, Mean Platelet Volume 9.6, Neutrophils (%) (Auto) 45, Lymphocytes (%) (Auto) 43, Monocytes (%) (Auto) 7, Eosinophils (%) (Auto) 4, Basophils (%) (Auto) 0, Neutrophils # (Auto) 3.8, Lymphocytes # (Auto) 3.6, Monocytes # (Auto) 0.6, Eosinophils # (Auto) 0.4H, Basophils # (Auto) 0.0, Sodium Level 141, Potassium Level 3.9, Chloride Level 108H, Carbon Dioxide Level 21, Anion Gap 12, Blood Urea Nitrogen 10, Creatinine 0.81, Estimat Glomerular Filtration Rate > 60, BUN/ Creatinine Ratio 12, Glucose Level 95, Calcium Level 8.8, Corrected Calcium 9.4 , Total Bilirubin 0.3, Aspartate Amino Transf (AST/SGOT) 33, Alanine Aminotransferase (ALT/SGPT) 19, Alkaline Phosphatase 140H, Total Protein 6.0L, Albumin 3.2 08/11/18 05:00: White Blood Count 6.1, Red Blood Count 3.41L, Hemoglobin 9.8L, Hematocrit 31L, Mean Corpuscular Volume 92, Mean Corpuscular Hemoglobin 29, Mean Corpuscular Hemoglobin Concent 31L, Red Cell Distribution Width 18.2H, Platelet Count 358, Mean Platelet Volume 9.5, Neutrophils (%) (Auto) 39L, Lymphocytes (%) (Auto) 47H , Monocytes (%) (Auto) 9, Eosinophils (%) (Auto) 5, Basophils (%) (Auto) 1, Neutrophils # (Auto) 2.4, Lymphocytes # (Auto) 2.9, Monocytes # (Auto) 0.5, Eosinophils # (Auto) 0.3, Basophils # (Auto) 0.0, Sodium Level 144, Potassium Level 3.8, Chloride Level 110H, Carbon Dioxide Level 26, Anion Gap 8, Blood Urea Nitrogen 10, Creatinine 0.71, Estimat Glomerular Filtration Rate > 60, BUN/ Creatinine Ratio 14, Glucose Level 90, Calcium Level 9.2, Corrected Calcium 9.8 , Total Bilirubin 0.3, Aspartate Amino Transf (AST/SGOT) 22, Alanine Aminotransferase (ALT/SGPT) 10, Alkaline Phosphatase 124, Total Protein 5.6L, Albumin 3.2 08/15/18 05:45: White Blood Count 5.6, Red Blood Count 3.68L, Hemoglobin 10.7L, Hematocrit 34L, Mean Corpuscular Volume 92, Mean Corpuscular Hemoglobin 29, Mean Corpuscular Hemoglobin Concent 32, Red Cell Distribution Width 18.0H, Platelet Count 321, Mean Platelet Volume 9.5, Neutrophils (%) (Auto) 45, Lymphocytes (%) (Auto) 42, Monocytes (%) (Auto) 7, Eosinophils (%) (Auto) 5, Basophils (%) (Auto) 1, Neutrophils # (Auto) 2.5, Lymphocytes # (Auto) 2.4, Monocytes # (Auto) 0.4, Eosinophils # (Auto) 0.3, Basophils # (Auto) 0.1, Sodium Level 141, Potassium Level 4.2, Chloride Level 109H, Carbon Dioxide Level 22, Anion Gap 10, Blood Urea Nitrogen 11, Creatinine 0.79, Estimat Glomerular Filtration Rate > 60, BUN/ Creatinine Ratio 14, Glucose Level 111H, Calcium Level 9.4, Corrected Calcium 9.8, Total Bilirubin 0.3, Aspartate Amino Transf (AST/SGOT) 20, Alanine Aminotransferase (ALT/SGPT) 9, Alkaline Phosphatase 160H, Total Protein 6.3L, Albumin 3.5 Pending Labs Laboratory Tests 08/05/18 05:54: White Blood Count 6.3, Red Blood Count 3.68, Hemoglobin 10.3, Hematocrit 32, Mean Corpuscular Volume 87, Mean Corpuscular Hemoglobin 28, Mean Corpuscular Hemoglobin Concent 32, Red Cell Distribution Width 18.0, Platelet Count 298, Mean Platelet Volume 9.5, Neutrophils (%) (Auto) 56, Lymphocytes (%) (Auto) 34, Monocytes (%) (Auto) 6, Eosinophils (%) (Auto) 4, Basophils (%) (Auto) 1, Neutrophils # (Auto) 3.5, Lymphocytes # (Auto) 2.2, Monocytes # (Auto) 0.4, Eosinophils # (Auto) 0.2, Basophils # (Auto) 0.0, Sodium Level 140, Potassium Level 3.6, Chloride Level 109, Carbon Dioxide Level 21, Anion Gap 10, Blood Urea Nitrogen 8, Creatinine 0.73, Estimat Glomerular Filtration Rate > 60, BUN/ Creatinine Ratio 11, Glucose Level 103, Calcium Level 8.7, Corrected Calcium 9.6 , Iron Level 29, Total Bilirubin 0.5, Aspartate Amino Transf (AST/SGOT) 61, Alanine Aminotransferase (ALT/SGPT) 32, Alkaline Phosphatase 115, Total Protein 5.3, Albumin 2.9 08/08/18 06:20: White Blood Count 8.3, Red Blood Count 3.65, Hemoglobin 10.4, Hematocrit 33, Mean Corpuscular Volume 90, Mean Corpuscular Hemoglobin 29, Mean Corpuscular Hemoglobin Concent 32, Red Cell Distribution Width 17.6, Platelet Count 399, Mean Platelet Volume 9.6, Neutrophils (%) (Auto) 45, Lymphocytes (%) (Auto) 43, Monocytes (%) (Auto) 7, Eosinophils (%) (Auto) 4, Basophils (%) (Auto) 0, Neutrophils # (Auto) 3.8, Lymphocytes # (Auto) 3.6, Monocytes # (Auto) 0.6, Eosinophils # (Auto) 0.4, Basophils # (Auto) 0.0, Sodium Level 141, Potassium Level 3.9, Chloride Level 108, Carbon Dioxide Level 21, Anion Gap 12, Blood Urea Nitrogen 10, Creatinine 0.81, Estimat Glomerular Filtration Rate > 60, BUN/ Creatinine Ratio 12, Glucose Level 95, Calcium Level 8.8, Corrected Calcium 9.4 , Total Bilirubin 0.3, Aspartate Amino Transf (AST/SGOT) 33, Alanine Aminotransferase (ALT/SGPT) 19, Alkaline Phosphatase 140, Total Protein 6.0, Albumin 3.2 08/11/18 05:00: White Blood Count 6.1, Red Blood Count 3.41, Hemoglobin 9.8, Hematocrit 31, Mean Corpuscular Volume 92, Mean Corpuscular Hemoglobin 29, Mean Corpuscular Hemoglobin Concent 31, Red Cell Distribution Width 18.2, Platelet Count 358, Mean Platelet Volume 9.5, Neutrophils (%) (Auto) 39, Lymphocytes (%) (Auto) 47, Monocytes (%) (Auto) 9, Eosinophils (%) (Auto) 5, Basophils (%) (Auto) 1, Neutrophils # (Auto) 2.4, Lymphocytes # (Auto) 2.9, Monocytes # (Auto) 0.5, Eosinophils # (Auto) 0.3, Basophils # (Auto) 0.0, Sodium Level 144, Potassium Level 3.8, Chloride Level 110, Carbon Dioxide Level 26, Anion Gap 8, Blood Urea Nitrogen 10, Creatinine 0.71, Estimat Glomerular Filtration Rate > 60, BUN/ Creatinine Ratio 14, Glucose Level 90, Calcium Level 9.2, Corrected Calcium 9.8 , Total Bilirubin 0.3, Aspartate Amino Transf (AST/SGOT) 22, Alanine Aminotransferase (ALT/SGPT) 10, Alkaline Phosphatase 124, Total Protein 5.6, Albumin 3.2 08/15/18 05:45: White Blood Count 5.6, Red Blood Count 3.68, Hemoglobin 10.7, Hematocrit 34, Mean Corpuscular Volume 92, Mean Corpuscular Hemoglobin 29, Mean Corpuscular Hemoglobin Concent 32, Red Cell Distribution Width 18.0, Platelet Count 321, Mean Platelet Volume 9.5, Neutrophils (%) (Auto) 45, Lymphocytes (%) (Auto) 42, Monocytes (%) (Auto) 7, Eosinophils (%) (Auto) 5, Basophils (%) (Auto) 1, Neutrophils # (Auto) 2.5, Lymphocytes # (Auto) 2.4, Monocytes # (Auto) 0.4, Eosinophils # (Auto) 0.3, Basophils # (Auto) 0.1, Sodium Level 141, Potassium Level 4.2, Chloride Level 109, Carbon Dioxide Level 22, Anion Gap 10, Blood Urea Nitrogen 11, Creatinine 0.79, Estimat Glomerular Filtration Rate > 60, BUN/ Creatinine Ratio 14, Glucose Level 111, Calcium Level 9.4, Corrected Calcium 9.8 , Total Bilirubin 0.3, Aspartate Amino Transf (AST/SGOT) 20, Alanine Aminotransferase (ALT/SGPT) 9, Alkaline Phosphatase 160, Total Protein 6.3, Albumin 3.5 Discharge Home Medications: Active Scripts Active Tramadol HCl 50 Mg Tablet 100 Mg PO Q6H PRN Lortab 7.5 Mg Tablet (Acetaminophen/Hydrocodone Bitart) 1 Ea Tablet 2 Ea PO Q4H PRN Clonazepam 0.5 Mg Tablet 0.5 Mg PO TID Ceftriaxone 2 gm Piggyback (Ceftriaxone Na/Dextrose,Iso) 2 Gm/50 Ml Froz.piggy 2 Gm IV DAILY Reported Vitamin C (Ascorbic Acid) 1,000 Mg Tablet 1,000 Mg PO HS Abilify (Aripiprazole) 10 Mg Tablet 10 Mg PO DAILY Prozac (Fluoxetine HCl) 20 Mg Capsule 20 Mg PO DAILY Calcium (Calcium Carbonate) 600 Mg Tablet 600 Mg PO HS Mobic (Meloxicam) 7.5 Mg Tablet 7.5 Mg PO BID Protonix (Pantoprazole Sodium) 40 Mg Tablet.dr 40 Mg PO DAILY Lipitor (Atorvastatin Calcium) 40 Mg Tablet 40 Mg PO HS Aspirin EC (Aspirin) 81 Mg Tablet.dr 81 Mg PO DAILY Gabapentin 600 Mg Tablet 600 Mg PO TID Instructions to patient/family Please see electronic discharge instructions given to patient. Diagnosis/Problems Diagnosis/Problems (1) Incisional abscess (2) Constipation (3) Anxiety (4) Depression (5) Hyperlipidemia (6) Osteoarthritis (7) GERD (gastroesophageal reflux disease) (8) TBI (traumatic brain injury) (9) Postoperative anemia (10) Transfusion history (11) Status post hip replacement (12) Former smoker (13) Iron deficiency Clinical Quality Measures DVT/VTE Risk/Contraindication: Risk Factor Score Per Nursin RFS Level Per Nursing on Admit: 4+=Very High Contraindications-Mechi: Other *list below* Other: High Bleed risk. On Mobic and ASA. SCDS only. INGA MORFIN DO August 15, 2018 09:10
--- NOTE | 2018-08-15 10:00 | NUR ---
ESTRELLA WILLOUGHBY demonstrates understanding of discharge instructions and accurately returns instructions upon questioning. Copy of Post-Discharge Instructions given to pt. ESTRELLA WILLOUGHBY is able to manage continuing needs after discharge and will receive HHC and therapy. Patients belongings returned to . Patient discharged from [facility] on 08-15-18 at 1000. ESTRELLA WILLOUGHBY left floor via , accompanied by staff and pts ex
[2018-08-15 11:00] VITALS: BP 124/73
--- NOTE | 2018-08-15 11:34 | Therapy Team Discharge Summary ---
Therapy Discharge Summary Discharge Recommendations Date of Discharge August 15, 2018 at 10:00 Therapy D/C Recommendations: Home w/ Family Support Physical Therapy Patient was admitted to rehab with bilateral hip incisions with absesses, debility. Upon evaluation patient performed bed mobility with SBA, supine <-> sit with SBA, sit <-> stand with SBA, transfers with SBA, car transfer SBA, ambulated 200' with a rolling walker with SBA (including 50' with at least 2 turns of 90 degrees and 10' over an uneven surface), and went up and down 1 step using a rolling walker with CGA. Patient has been performing bed mobility and transfer training, balance and endurance training, functional strengthening, stair training, gait training, and education. Patient has made good progress and has met all of her long-term goals. Now, patient performs bed mobility with independence, transfers with mod I, car transfer with mod I, ambulates 750' with a rolling walker with mod I (including 50' with at least 2 turns of 90 degrees and 10' over an uneven surface), and can go up and down 12 steps using 2 handrails with mod I. Patient has discharged from this facility and will be discharged from PT at this time. Occupational Therapy Decreased Activ Tolerance PT Jail Goals Sociology Adjunct Instructor Goals PT Sociology Adjunct Instructor Goals Time Frame: August 26, 2018 Transfers (B,C,W/C) (FIM): 6 Roll Left to Right (QC): 6 Sit to Lying (QC): 6 Lying-Sitting on Side/Bed(QC): 6 Sit to Stand (QC): 6 Chair/Uee-nm-Niplb Xfer(QC): 6 Car Transfer (QC): 6 Gait (FIM): 6 Distance: 300' Walk 10 feet (QC): 6 Walk 10ft-Uneven Surface(QC): 6 Walk 50ft with 2 Turns (QC): 6 Walk 150 ft (QC): 6 Gait Level of Assist: 6 Gait Assistive Device: FWW Stairs (FIM): 2 # of Steps: 4 1 Step (curb) (QC): 4 4 Steps (QC): 4 Stairs Level Of Assist: 5 OT Jail Goals Jail Goals Time Frame: August 26, 2018 Eating (FIM): 6 Eating (QC): 6 Oral Hygiene (QC): 6 Grooming(FIM): 6 Bathing(FIM): 6 Shower/Bathe Self (QC): 6 Upper Body Dressing(FIM): 6 Upper Body Dressing (QC): 6 Lower Body Dressing(FIM): 6 Lower Body Dressing (QC): 6 On/Off Footwear (QC): 6 Toileting(FIM): 6 Toileting Hygiene (QC): 6 Toilet/Commode Transfer(FIM): 6 Toilet/Commode Transfer (QC): 6 Shower Transfer(FIM): 6 Additional Goals: 1-Demonstrate ADL Tasks, 2-Verbalize Understanding, 3- ImproveStrength/Lorena 1=Demonstrate adherence to instructed precautions during ADL tasks. 2=Patient will verbalize/demonstrate understanding of assistive devices/ modifications for ADL. 3=Patient will improve strength/tolerance for activity to enable patient to perform ADL's. MAGDALENE PERALTA PT August 15, 2018 11:34
--- NOTE | 2018-08-18 13:04 | Therapy Team Discharge Summary ---
Therapy Discharge Summary Discharge Recommendations Date of Discharge August 15, 2018 at 10:00 Therapy D/C Recommendations: Home w/ Family Support Occupational Therapy Pt. has been seen by occupational therapy to increase overall strength and independence. Pt. has met all goals and is doing well. Pt. discharged home with family support. All goals have been met. No Skilled OT Needs ID'd PT Mime Artist Goals Group Home Goals PT Mime Artist Goals Time Frame: August 26, 2018 Transfers (B,C,W/C) (FIM): 6 Roll Left to Right (QC): 6 Sit to Lying (QC): 6 Lying-Sitting on Side/Bed(QC): 6 Sit to Stand (QC): 6 Chair/Uan-aa-Cjwne Xfer(QC): 6 Car Transfer (QC): 6 Gait (FIM): 6 Distance: 300' Walk 10 feet (QC): 6 Walk 10ft-Uneven Surface(QC): 6 Walk 50ft with 2 Turns (QC): 6 Walk 150 ft (QC): 6 Gait Level of Assist: 6 Gait Assistive Device: FWW Stairs (FIM): 2 # of Steps: 4 1 Step (curb) (QC): 4 4 Steps (QC): 4 Stairs Level Of Assist: 5 OT Mime Artist Goals Group Home Goals Time Frame: August 26, 2018 Eating (FIM): 6 (met) Eating (QC): 6 (met) Oral Hygiene (QC): 6 (met) Grooming(FIM): 6 (met) Bathing(FIM): 6 (met) Shower/Bathe Self (QC): 6 (met) Upper Body Dressing(FIM): 6 (met) Upper Body Dressing (QC): 6 (met) Lower Body Dressing(FIM): 6 (met) Lower Body Dressing (QC): 6 (met) On/Off Footwear (QC): 6 (met) Toileting(FIM): 6 (met) Toileting Hygiene (QC): 6 Toilet/Commode Transfer(FIM): 6 (met) Toilet/Commode Transfer (QC): 6 (met) Shower Transfer(FIM): 6 (met) Additional Goals: 1-Demonstrate ADL Tasks, 2-Verbalize Understanding, 3- ImproveStrength/Lorena 1=Demonstrate adherence to instructed precautions during ADL tasks. 2=Patient will verbalize/demonstrate understanding of assistive devices/ modifications for ADL. 3=Patient will improve strength/tolerance for activity to enable patient to perform ADL's. HONEY REY OT August 18, 2018 13:04
== END 2018-08-15 10:00 | disposition home health service (06) | DRG 863 ==
PROVIDERS: ADMIT Internal Medicine; ATTEND Internal Medicine
PROC: 02HV33Z Insertion of Infusion Device into Superior Vena Cava, Percutaneous Approach (ICD-10-PCS; principal; 2018-08-05)
DX: T81.41XA Infection following a procedure, superficial incisional surgical site, initial encounter (principal); L03.115 Cellulitis of right lower limb; L03.116 Cellulitis of left lower limb; B96.20 Unspecified Escherichia coli [E. coli] as the cause of diseases classified elsewhere; D62 Acute posthemorrhagic anemia; E78.5 Hyperlipidemia, unspecified; I10 Essential (primary) hypertension; F41.9 Anxiety disorder, unspecified; F32.9 Major depressive disorder, single episode, unspecified; M19.90 Unspecified osteoarthritis, unspecified site; K59.00 Constipation, unspecified; K21.9 Gastro-esophageal reflux disease without esophagitis; Z87.891 Personal history of nicotine dependence; Z87.820 Personal history of traumatic brain injury
CPT/HCPCS: 36415; 36569; 71045; 76937; 80053; 83540; 85025